=== PATIENT | male | born 1950 | race Caucasian/White ===

== ENCOUNTER 2025-04-15 13:11 | Observation (INO) ==
[2025-04-15] MEDS: ACETAMINOPHEN 1,000 MG/100 ML VIAL IV STA (14:01)
[2025-04-15] MEDS: SODIUM CHLORIDE 0.9% 1,000 ML IV ONE (14:01)
[2025-04-15] MEDS: ONDANSETRON INJ 2 MG/ML 2 ML VIAL IV STA (14:02)
--- NOTE | 2025-04-15 14:16 | Emergency Department Note ---
Impression & Plan Ureterolithiasis, Acute renal failure, Anaplasmosis, Hydronephrosis due to obstruction of ureter, Thrombocytopenia, Lymphopenia ED Provider Note NAME: TANNER ELIZABETH AGE: 74 SEX: M : 1950 ARRIVES VIA: Walk-In INFORMANT: Patient ED PROVIDER(S): Jorge A Tobias MD CHIEF COMPLAINT: Bilateral flank pain, referred PLAN: Disposition: Admit MEDICAL DECISION MAKING: The patient is a pleasant 74-year-old gentleman with a past medical history of nephrolithiasis, hypertension, hyperlipidemia, diabetes who presents to the emergency department referred by his urology office after he had contacted them describing his worsening pain in the setting of being seen at [facility] on Thursday and diagnosed with a 7 mm obstructing right ureteral stone. Patient was in the process of arranging outpatient follow-up however symptoms have worsened. He reports nausea and vomiting. He reports pain that now also includes his left side. He reports feeling feverish earlier in the week. He denies cough, congestion, shortness of breath, chest pain. He denies blood in his urine. On my evaluation the patient is in no acute distress, afebrile with heart in the 110s and vital signs otherwise stable. He appears clinically dry. He exhibits discomfort of bilateral flanks and lower abdomen without discrete tenderness to palpation. There is no guarding or rebound. WBC within normal limits without neutrophilia or left shift. However, lymphopenia is present at 0.32K and thrombocytopenia of 67K without recent values for comparison. Chemistry without metabolic acidosis. Creatinine is 2.49 with BUN of 51 without recent values for comparison though increased from 2022. BUN/creatinine 20.5 suggestive of component of prerenal etiology. Total bili 1.7, nonspecific and LFTs otherwise normal. Lipase is normal. UA demonstrates WBCs and RBCs with 1+ bacteria albeit with epithelial cells present and negative nitrites. CT of the abdomen pelvis was completed and per my preliminary independent interpretation demonstrates moderate right-sided hydroureteronephrosis with a 7 mm stone at the UVJ consistent with patient's recent history. No clear left ureteral stone however fullness of the left renal pelvis. Patient was treated with IV hydration, IV APAP, Zofran and IV morphine. Patient did report some improvement in symptoms though still uncomfortable and agrees with plan for admission for further management. Case was discussed with [facility] hospitalist, who will evaluate the patient for admission. Of note, I was subsequent contacted by laborer cheesemaking regarding intracellular inclusions suspicious for anaplasmosis and so Anaplasma DNA testing was ordered as a reflex. Given thrombocytopenia and microscopy finding treatment initiated with IV doxycycline. Findings were reviewed with the patient and he does not recall any particular tick bite but [place] and are exposed to ticks. Admitting team updated. CT report was subsequently finalized and confirms right sided UVJ stone with moderate hydroureteronephrosis. Additionally described as moderate thickening of the duodenum suggestive of duodenitis or PUD. Further management per admitting team. Triage Nursing notes reviewed and agree them. Prior/external medical records reviewed Vital Signs: reviewed Differential diagnosis: Renal colic, UTI, appendicitis, diverticulitis, mesenteric ischemia, aortic pathology, infections, inflammatory bowel disease, PUD, biliary pathology, as well as other pathologies. ER treatment provided: See below. Diagnostics interpreted by me: Cardiac Monitoring: An order for continuous cardiac monitoring was placed and demonstrated sinus tachycardia, 108 bpm, no ectopy. Laboratory studies: See below Imaging studies: See below Consultation(s): Case was discussed with Dr. Vega, [facility] hospitalist, who will evaluate the patient for admission. HPI: Per MDM. ROS: See above HPI for pertinent positives & negatives. A total of 10 systems reviewed and were otherwise negative. VITALS:See Below PHYSICAL EXAMINATION: GENERAL: Awake, alert, in no distress HENT: Normocephalic, atraumatic. Oropharynx with dry mucous membranes and otherwise unremarkable. EYES: Normal conjunctiva. Sclera non-icteric. NECK: Supple. No nuchal rigidity. FROM. No JVD. RESPIRATORY: Clear to auscultation. CARDIAC: Tachycardic rate, normal rhythm. Extremities warm and well perfused. Pulses equal. ABDOMEN: Soft, non-distended. Discomfort of bilateral flanks and lower abdomen without discrete tenderness to palpation. There is no guarding or rebound. MUSCULOSKELETAL: Chest examination reveals no tenderness. The back is symmetrical on inspection without obvious abnormality. There is no CVA tenderness to palpation. No joint edema. LOWER EXTREMITIES: Calves are equal size bilaterally and non-tender. No edema. No discoloration. NEURO: Normal sensorium. No sensory or motor deficits noted. SKIN: No rash or jaundice noted. Jorge A Tobias MD Past Med/Surg History Problem List (Updated 04/16/25 @ 00:19 by Jorge A Tobias MD) Lymphopenia (Acute) Thrombocytopenia (Acute) Hydronephrosis due to obstruction of ureter (Acute) DM2 (diabetes mellitus, type 2) Anaplasmosis (Acute) Acute renal failure (Acute) Ureterolithiasis (Acute) Erectile dysfunction Prostate cancer Social History Smoking Status: Never smoker Hx Alcohol Use: Yes Alcohol type: beer Hx Substance Use: No Preferred Language: Nicaraguan Communication Ability: Effective Drafter Chief Design Required: No Beliefs That Will Affect Care: None Current Living Situation: Spouse Feels Safe at Home: Yes Assistive Devices: Glasses Allergies Allergies Allergy/AdvReac Type Severity Reaction Status Date / Time propofol AdvReac Verified 04/15/23 13:54 Home Meds Home Medications Medication Instructions Recorded Confirmed aspirin 81 mg capsule 81 mg PO DAILY 04/15/23 04/15/25 dextroamphetamine-amphetamine ER 40 mg PO DAILY 04/15/23 04/15/25 20 mg 24hr capsule,extend release dulaglutide 0.75 mg/0.5 mL 0.75 mg subcut WK 04/15/23 04/15/25 subcutaneous [facility] escitalopram oxalate 20 mg tablet 20 mg PO DAILY 04/15/23 04/15/25 lamotrigine 100 mg tablet 50 mg PO BID 04/15/23 04/15/25 losartan 25 mg tablet 50 mg PO DAILY 04/15/23 04/15/25 metformin 1,000 mg tablet 0 mg PO BID 04/15/23 04/15/25 naltrexone 50 mg tablet 50 mg PO DAILY 04/15/23 04/15/25 rosuvastatin 20 mg tablet 20 mg PO DAILY 04/15/23 04/15/25 tadalafil 20 mg tablet 0 mg PO DAILY PRN Other 04/15/23 04/15/25 ondansetron 4 mg disintegrating 4 mg PO UD PRN n/v 04/15/25 04/15/25 tablet oxycodone 5 mg tablet 5 mg PO UD PRN Pain 04/15/25 04/15/25 tamsulosin 0.4 mg capsule 0.4 mg PO DAILY 04/15/25 04/15/25 Results & Data (ED) Vital Signs Vital Signs - 24 hr 04/15/25 13:34 04/15/25 13:50 04/15/25 13:50 Temperature 37.3 C Temperature Source Oral Pulse Rate 112 H 102 H Pulse Rate [Apical] 105 H Pulse Rhythm [Apical] Regular Pulse Strength [Apical] Normal Respiratory Rate 20 18 Respiratory Effort / Characteristics Non-Labored Spontaneous Respiratory Depth Normal Respiratory Pattern Regular Blood Pressure 122/80 Blood Pressure [Left Arm] 142/92 H Blood Pressure Mean 94 Blood Pressure Mean [Left Arm] 108 Blood Pressure Position [Left Arm] Lying Pulse Oximetry 97 94 96 Oxygen Delivery Method Room Air Room Air Room Air Sepsis Recent Fever Within 48 Hours Yes Sepsis New/Unexplained Change in Mental Status N/A Sepsis Action Taken by Nursing No Action Required 04/15/25 14:02 04/15/25 15:12 Temperature Temperature Source Pulse Rate 108 H Pulse Rate [Apical] 93 H Pulse Rhythm [Apical] Pulse Strength [Apical] Respiratory Rate 16 Respiratory Effort / Characteristics Non-Labored Spontaneous Respiratory Depth Respiratory Pattern Blood Pressure Blood Pressure [Left Arm] 116/75 Blood Pressure Mean Blood Pressure Mean [Left Arm] 88 Blood Pressure Position [Left Arm] Pulse Oximetry 94 Oxygen Delivery Method Room Air Sepsis Recent Fever Within 48 Hours Sepsis New/Unexplained Change in Mental Status Sepsis Action Taken by Nursing Laboratory Data Attestation: I reviewed the patient's lab results. 04/15/25 14:00 04/15/25 14:00 Lab Results 04/15/25 04/15/25 Range/Units 14:00 15:05 WBC 7.07 (4.8-10.8) K/ul RBC 5.38 (4.70-6.10) M/uL Hgb 15.5 (14.0-18.0) g/dl Hct 46.2 (42.0-52.0) % MCV 85.9 (80.0-100.0) fL MCH 28.8 (25.0-34.0) pg MCHC 33.5 (32.0-36.0) g/dL RDW Std Deviation 41.5 (36.4-46.3) fL RDW Coeff of Estelita 13.2 (11.5-14.5) % Plt Count 67 L (130-400) K/uL MPV 9.0 L (9.4-12.4) fL Immature Gran % (Auto) 0.4 % Neut % (Auto) 89.6 % Lymph % (Auto) 4.5 % [place] % (Auto) 5.2 % Eos % (Auto) 0.0 % Baso % (Auto) 0.3 % Neut # (Auto) 6.33 (1.40-6.50) K/uL Lymph # (Auto) 0.32 L (1.20-3.40) K/uL [place] # (Auto) 0.37 (0.11-0.59) K/uL Eos # (Auto) 0.00 (0.00-0.50) K/uL Baso # (Auto) 0.02 (0.00-0.20) K/uL Immature Gran # (Auto) 0.03 (0.01-0.20) K/uL Toxic Granulation 1+ Dohle Bodies 2+ Platelet Estimate Decreased L (Normal) Polychromasia 1+ PT 10.7 (9.0-12.0) Seconds INR 1.0 (0.9-1.1) Sodium 130 L (136-145) mmol/L Potassium 4.9 (3.5-5.1) mmol/L Chloride 96 L (98-107) mmol/L Carbon Dioxide 25 (21-32) mmol/L Anion Gap 9 (3-11) BUN 51 H (6-23) mg/dl Creatinine 2.49 H (0.6-1.4) mg/dl Est Cr Clr Drug Dosing 28.5 ml/min eGFR 26.76 BUN/Creatinine Ratio 20.5 H (10-20) Glucose 153 H (70-99(Fasting)) mg/dl Calcium 9.2 (8.6-10.3) mg/dl Total Bilirubin 1.7 H (0.2-1.0) mg/dl AST 22 (13-39) U/L ALT 23 (7-52) U/L Alkaline Phosphatase 79 (34-104) U/L Total Protein 6.7 (6.0-8.3) gm/dl Albumin 3.7 (3.4-5.0) gm/dl Globulin 3.0 (2.5-4.0) gm/dl Albumin/Globulin Ratio 1.2 (0.9-2) Lipase 13 (11-82) U/L Urine Color Yellow Urine Appearance Cloudy A (Clear) Urine pH 5.5 (4.5-7.5) Ur Specific [place] 1.021 (1.000-1.030) Urine Protein 2+ H (Negative) Urine Glucose (UA) Negative (Negative) Urine Ketones 1+ H (Negative) Urine Blood 3+ H (Negative) Urine Nitrite Negative (Negative) Urine Bilirubin Negative (Negative) Urine Urobilinogen Negative (Negative) Ur Leukocyte Esterase 2+ H (Negative) Urine WBC (Auto) >50 H (0-5) /hpf Urine RBC (Auto) 3-5 H (0-2) /hpf U Hyaline Cast (Auto) 6-10 H (0-2) /lpf U Epithel Cells (Auto) 6-10 H (0-2) /hpf Urine Bacteria (Auto) 1+ H (None Seen) Urine Comment Anaplasma Smear See Comment A Anaplasma Comment Administered Medications Hydromorphone HCl (Hydromorphone Inj 0.5 Mg/0.5 Ml Syr) 0.5 mg IV Q4 PRN PRN Reason: Pain - moderate Stop: 04/29/25 19:01 Last Admin: 04/15/25 19:30 Dose: 0.5 mg Documented By: sierra Lactated Ringer's (Lr) 1,000 mls @ 125 mls/hr IV .Q8H JAN Stop: 04/18/25 19:01 Last Admin: 04/15/25 19:44 Dose: 125 mls/hr Documented By: DENNY Insulin Aspart (Insulin Aspart Per Unit Charge) 0 units SC ACHS [facility] Stop: 05/15/25 20:59 Last Admin: 04/15/25 20:50 Dose: Not Given Documented By: CHRISTIANO Lamotrigine (Lamotrigine 25 Mg Tab) 50 mg PO BID [facility]; Protocol Stop: 05/15/25 20:59 Last Admin: 04/15/25 21:01 Dose: 50 mg Documented By: CHRISTIANO Ondansetron HCl (Ondansetron Inj 2 Mg/Ml 2 Ml Vial) 4 mg IV Q6H PRN PRN Reason: Nausea Stop: 05/15/25 19:01 Last Admin: 04/15/25 19:27 Dose: 4 mg Documented By: sierra Discontinued Medications Sodium Chloride (Nss) 1,000 mls @ 999 mls/hr IV .Q1H1M ONE Stop: 04/15/25 14:40 Last Infusion: 04/15/25 14:57 Dose: Infused Documented By: leon Admin: 04/15/25 14:01 Dose: 999 mls/hr Documented By: leon Acetaminophen (Ofirmev) 1,000 mg in 100 mls @ 400 mls/hr IV NOW STA Stop: 04/15/25 13:54 Last Infusion: 04/15/25 14:25 Dose: Infused Documented By: leon Admin: 04/15/25 14:01 Dose: 400 mls/hr Documented By: leon Doxycycline Hyclate 100 mg/ (Dextrose) 100 mls @ 50 mls/hr IV NOW STA Stop: 04/15/25 18:05 Last Infusion: 04/15/25 19:15 Dose: Infused Documented By: Admin: 04/15/25 16:53 Dose: 50 mls/hr Documented By: ROSS Morphine Sulfate (Morphine Sulfate 10 Mg/Ml Carp/Vial) 6 mg IV NOW STA Stop: 04/15/25 14:16 Last Admin: 04/15/25 14:30 Dose: 6 mg Documented By: leon Ondansetron HCl (Ondansetron Inj 2 Mg/Ml 2 Ml Vial) 4 mg IV NOW STA Stop: 04/15/25 13:41 Last Admin: 04/15/25 14:02 Dose: 4 mg Documented By: leon Imaging Data Radiologist's Impression: Abdomen/Pelvis CT 04/15/25 14:54 EXAM: CT Abdomen and Pelvis Without Intravenous Contrast INDICATION: Bilateral flank pain. History of stents. TECHNIQUE: Axial computed tomography images of the abdomen and pelvis without intravenous contrast. Sagittal and coronal reformatted images were created and reviewed. This CT exam was performed using one or more of the following dose reduction techniques: automated exposure control, adjustment of the mA and/or kV according to patient size, and/or use of iterative reconstruction technique. COMPARISON: No relevant prior studies available. FINDINGS: Limitations: None. Lung bases: No abnormality noted. Pleural space: Trace layering bilateral pleural effusions present right greater than left. Heart: No abnormality noted. Mediastinum: No abnormality noted. ABDOMEN: Liver: Lack of intravenous contrast limits detection of some masses. No abnormality noted. Gallbladder and bile ducts: No calcified stones or surrounding fluid. No ductal dilation. Pancreas: No pancreatic mass, calcification, inflammation or ductal dilation noted. Spleen: No significant abnormality noted. Adrenals: No significant abnormality noted. Kidneys and ureters: There is mild right hydroureteronephrosis to a 7 mm stone just above the right UVJ. There is a punctate nonobstructing stone in the lower left kidney. Stomach and bowel: There is moderate thickening and inflammation of the duodenal C-loop. There is marked colonic diverticulosis. There is stool and fluid in the colon particularly on the right. There is prominent small bowel fluid without obstruction. PELVIS: Appendix: No findings to suggest acute appendicitis. Bladder: Appears normal for the degree of filling. No stones or inflammation. No large mass. Masses may not be detected in the absence of opacification. Reproductive: No abnormalities noted. ABDOMEN and PELVIS: Intraperitoneal space: No free air. No significant fluid collection. Bones/joints: Degenerative changes noted throughout the spine. No acute osseous abnormality seen. Soft tissues: No significant abnormality noted. Vasculature: No abdominal aortic aneurysm. Lymph nodes: No pathologically enlarged lymph nodes. IMPRESSION: 1. Moderate right hydroureteronephrosis to a 7 mm stone just above the right UVJ. 2. There is moderate thickening of the duodenum. Findings most concerning for duodenitis or peptic ulcer disease. No definite evidence of acute pancreatitis but correlate with pancreatic enzymes. 3. Extensive colonic diverticulosis. No diverticulitis. 4. Trace layering pleural effusions. ACT 112: N/A Electronically signed by Swapna Lopez 04-15-2025 4:23 PM Discharge Plan Visit Data Chief Complaint: Kidney Stone Stated Complaint: KIDNEY STONE ED Provider: Jorge A Tobias Discharge Problem: Ureterolithiasis, Acute renal failure, Anaplasmosis, Hydronephrosis due to obstruction of ureter, Thrombocytopenia, Lymphopenia Patient Disposition: Admitted As Inpatient Condition: Fair Discharge Instructions Interventions: ED Discharge Assessment Last Done: 04/15/25 19:03 Discharge Problem: Acute renal failure Qualifiers: Acute renal failure type: unspecified Qualified Code(s): N17.9 - Acute kidney failure, unspecified
[2025-04-15] MEDS: MoRPHine SULFATE 10 MG/ML CARP/VIAL IV STA (14:30)
[2025-04-15 14:32] LABS: Alanine Aminotransferase 23.0 U/L (7-52); Albumin Globulin Ratio 1.2 (0.9-2); Albumin Level 3.7 gm/dl (3.4-5.0); Alkaline Phosphatase 79.0 U/L (34-104); Anion Gap 9.0 (3-11); Bilirubin,Total 1.7 mg/dl (0.2-1.0); Blood Urea Nitrogen 51.0 mg/dl (6-23); Calcium 9.2 mg/dl (8.6-10.3); Carbon Dioxide 25.0 mmol/L (21-32); Chloride 96.0 mmol/L (98-107); Creatinine Clr Calc Pharmacy 28.5 ml/min; Globulin 3.0 gm/dl (2.5-4.0); Glucose 153.0 mg/dl (70-99(Fasting)); Lipase 13.0 U/L (11-82); Potassium 4.9 mmol/L (3.5-5.1); Sodium 130.0 mmol/L (136-145); Total Protein 6.7 gm/dl (6.0-8.3)
[2025-04-15 14:33] LABS: Hematocrit (blood only) 46.2 % (42.0-52.0); Hemoglobin 15.5 g/dl (14.0-18.0); Mean Corpuscular Hemoglobin 28.8 pg (25.0-34.0); Mean Corpuscular Volume 85.9 fL (80.0-100.0); Platelet Count 67 K/uL (130-400); RDW Standard Deviation 41.5 fL (36.4-46.3); Red Blood Count 5.38 M/uL (4.70-6.10); White Blood Count 7.07 K/ul (4.8-10.8)
[2025-04-15 14:45] LABS: INR 1.0 (0.9-1.1); Prothrombin Time 10.7 Seconds (9.0-12.0)
[2025-04-15 15:54] LABS: Appearance Urine Cloudy (Clear); Bacteria Urine Automated 1+ (None Seen); Glucose Urine UA Negative (Negative); WBC Urine Automated >50 /hpf (0-5)
[2025-04-15 15:54] LABS: Dohle Bodies 2+; Immature Granulocytes # (auto) 0.03 K/uL (0.01-0.20); Immature Granulocytes % (auto) 0.4 %; Polychromasia 1+; Toxic Granulation 1+
--- NOTE | 2025-04-15 16:24 | CT Scan Report ---
EXAM: CT Abdomen and Pelvis Without Intravenous Contrast INDICATION: Bilateral flank pain. History of stents. TECHNIQUE: Axial computed tomography images of the abdomen and pelvis without intravenous contrast. Sagittal and coronal reformatted images were created and reviewed. This CT exam was performed using one or more of the following dose reduction techniques: automated exposure control, adjustment of the mA and/or kV according to patient size, and/or use of iterative reconstruction technique. COMPARISON: No relevant prior studies available. FINDINGS: Limitations: None. Lung bases: No abnormality noted. Pleural space: Trace layering bilateral pleural effusions present right greater than left. Heart: No abnormality noted. Mediastinum: No abnormality noted. ABDOMEN: Liver: Lack of intravenous contrast limits detection of some masses. No abnormality noted. Gallbladder and bile ducts: No calcified stones or surrounding fluid. No ductal dilation. Pancreas: No pancreatic mass, calcification, inflammation or ductal dilation noted. Spleen: No significant abnormality noted. Adrenals: No significant abnormality noted. Kidneys and ureters: There is mild right hydroureteronephrosis to a 7 mm stone just above the right UVJ. There is a punctate nonobstructing stone in the lower left kidney. Stomach and bowel: There is moderate thickening and inflammation of the duodenal C-loop. There is marked colonic diverticulosis. There is stool and fluid in the colon particularly on the right. There is prominent small bowel fluid without obstruction. PELVIS: Appendix: No findings to suggest acute appendicitis. Bladder: Appears normal for the degree of filling. No stones or inflammation. No large mass. Masses may not be detected in the absence of opacification. Reproductive: No abnormalities noted. ABDOMEN and PELVIS: Intraperitoneal space: No free air. No significant fluid collection. Bones/joints: Degenerative changes noted throughout the spine. No acute osseous abnormality seen. Soft tissues: No significant abnormality noted. Vasculature: No abdominal aortic aneurysm. Lymph nodes: No pathologically enlarged lymph nodes. IMPRESSION: 1. Moderate right hydroureteronephrosis to a 7 mm stone just above the right UVJ. 2. There is moderate thickening of the duodenum. Findings most concerning for duodenitis or peptic ulcer disease. No definite evidence of acute pancreatitis but correlate with pancreatic enzymes. 3. Extensive colonic diverticulosis. No diverticulitis. 4. Trace layering pleural effusions. ACT 112: N/A Electronically signed by Swapna Lopez 04-15-2025 4:23 PM
[2025-04-15] MEDS: DOXYCYCLINE HYCLATE 100 MG in DEXTROSE 5% MINI-B 100 ML IV STA (16:53)
--- NOTE | 2025-04-15 16:53 | History & Physical Report ---
Date of Service April 15, 2025 Assessment & Plan (1) Ureterolithiasis: (2) Acute renal failure: (3) Anaplasmosis: (4) Prostate cancer: (5) DM2 (diabetes mellitus, type 2): Plan #Symptomatic ureterolithiasis/hydronephrosisdefinitely appears to have a stone on the right, with bilateral symptoms and the acute renal failure, while the radiologist does not comment on it, both the ER physician and myself feel that his left kidney is may be mildly dilated and we see white density in the pelvis near the bladder and both have a suspicion he may have bilateral stones. Regardless, the management will require pain control, IV fluids, and urology consultsand I will defer to urology's expertise and further evaluation regarding stone unilaterally versus bilaterally. Does not appear septic. continue Flomax #Acute renal failureeither from bilateral obstruction, dehydration, or both. IV fluids and follow. hold losartan and metformin #Hyponatremialikely due to poor p.o. intake/volume lossanticipate improvement with rehydration #Anaplasmosistotally incidental findingthe lab called that he appeared to have inclusion bodies consistent with Anaplasma and confirmed with pathology that this was the case. Probably explains his thrombocytopenia, possibly explains his elevated bilirubin (although it is more common to cause transaminitis) and almost certainly explains his rigors the other day. Doxycycline, follow labs. #Diabeteslast A1c that I can see was 5.9, that was 2 years ago but he also notes that he is under good control. Obviously holding his Trulicity and metformin. Fingersticks, supplemental insulin. Recheck A1c. #ADHD and bipolarcontinue his Lexapro and dextroamphetamine as well as I assume is probably why he is on the Lamictal #DVT prophylaxisSCDs for nowboth due to the renal failure and the thrombocytopenia #elevated bilirubinagain, not pathognomonic association with Anaplasma (morbid obesity if there was also hemolysis which does not appear to be going on)treat as above, follow-up CMP in AM. History of Present Illness Chief Complaint: Flank pain, nausea vomiting, chills. Primary Care Provider: Evan Parsons Patient is a very pleasant 74-year-old male who has had about a week of right sided flank pain and progressive nausea and vomiting. He notes that he was seen at his local hospital where they identified a kidney stone and told him they would not really be able to do anything to manage it and directed him to [facility]. it sounds like there they reevaluated him and recommended that he follow-up with his primary urologist, and sent him home. In the interim, he has had worsening pain, now actually bilaterally, and intractable nausea and vomiting at times and very poor p.o. intake. He is feeling worse and worse. Incidentally, a few nights ago he had bout of shaking chills quite consistent with rigors. None since. He came to our ER for further evaluation, and right now after 6 mg of morphine he is feeling a bit more comfortable. His past medical history includes ADHD, bipolar, GERD, osteoarthritis, prior kidney stones, hyperlipidemia, well-controlled diabetes. Medications are as per med rec, sounds to have had fairly severe reaction to propofol, past surgical history includes hernia repairs colonoscopy cystoscopy prostate ablation and prior cystoscopes for ureterolithiasis. Family history includes a brother with type 2 diabetes, parents who had heart disease and diabetes in the mom. No tobacco social alcohol. Allergies Allergy/AdvReac Type Severity Reaction Status Date / Time propofol AdvReac Verified 04/15/23 13:54 Home Medications Medication Instructions Recorded Confirmed Type aspirin 81 mg capsule 81 mg PO DAILY 04/15/23 04/15/25 History dextroamphetamine-amphetamine ER 40 mg PO DAILY 04/15/23 04/15/25 History 20 mg 24hr capsule,extend release dulaglutide 0.75 mg/0.5 mL 0.75 mg subcut WK 04/15/23 04/15/25 History subcutaneous pen injector (Trulicity) escitalopram oxalate 20 mg tablet 20 mg PO DAILY 04/15/23 04/15/25 History lamotrigine 100 mg tablet 50 mg PO BID 04/15/23 04/15/25 History losartan 25 mg tablet 50 mg PO DAILY 04/15/23 04/15/25 History metformin 1,000 mg tablet 0 mg PO BID 04/15/23 04/15/25 History naltrexone 50 mg tablet 50 mg PO DAILY 04/15/23 04/15/25 History rosuvastatin 20 mg tablet 20 mg PO DAILY 04/15/23 04/15/25 History tadalafil 20 mg tablet 0 mg PO DAILY PRN Other 04/15/23 04/15/25 History ondansetron 4 mg disintegrating 4 mg PO UD PRN n/v 04/15/25 04/15/25 History tablet oxycodone 5 mg tablet 5 mg PO UD PRN Pain 04/15/25 04/15/25 History tamsulosin 0.4 mg capsule 0.4 mg PO DAILY 04/15/25 04/15/25 History Past Med/Surg History Problem List (Updated 04/15/25 @ 16:53 by Domingo Vega DO) DM2 (diabetes mellitus, type 2) Anaplasmosis Acute renal failure Ureterolithiasis Erectile dysfunction Prostate cancer Social History Smoking Status: Never smoker Preferred Language: Yemeni Feels Safe at Home: Yes Review of Systems Review of Systems: All systems reviewed & are unremarkable except as noted in HPI & below Physical Exam Physical Exam: In general he is awake and alert pleasant fatigued no distress. HEENT normocephalic atraumatic mucous membranes moist. Cardio is regular without rubs murmurs or gallops. Lungs clear bilaterally no rales rhonchi or wheezes. Abdomen is soft nondistended nontender no masses organomegaly. Extremities without sinus clubbing or edema. Neuro shows cranial nerves II through XII to be grossly intact gross motor and sensory intact. Skin without rashes pallor or icterus. Results & Data Results & Data Vital Signs (Past 12 Hours) Vital Signs Temp Pulse Pulse Resp BP BP Pulse Ox 04/15/25 15:12 93 H 16 116/75 94 04/15/25 14:02 108 H 04/15/25 13:50 102 H 96 04/15/25 13:50 105 H 18 142/92 H 94 04/15/25 13:34 99.1 F 112 H 20 122/80 97 O2 Del Method 04/15/25 15:12 Room Air 04/15/25 14:02 04/15/25 13:50 Room Air 04/15/25 13:50 Room Air 04/15/25 13:34 Room Air Code Status & VTE Plan VTE Prophylaxis Plan VTE Prophylaxis will be ordered: Yes PG Care Time/CCT Total # of Minutes Spent Total Time Spent with Patient: Total time spent is greater than 50% in coordination of care (as documented) at patient's floor/unit and/or counseling patient: Coding Level of Care Code 92284 INT INP/OBS CARE 3/75MIN Diagnoses Ureterolithiasis N20.1 Acute renal failure N17.9 Anaplasmosis A77.49 Prostate cancer C61 DM2 (diabetes mellitus, type 2) E11.9
[2025-04-15] MEDS ORDERED: ALUMINUM/MAGNESIUM SUSP 30 ML UDC PO PRN (19:02)
[2025-04-15] MEDS: ONDANSETRON INJ 2 MG/ML 2 ML VIAL IV PRN (19:27)
[2025-04-15] MEDS: HYDROmorphone INJ 0.5 MG/0.5 ML SYR IV PRN (19:30)
[2025-04-15] MEDS: LACTATED RINGER'S 1,000 ML IV SCH (19:44)
[2025-04-15] MEDS: INSULIN ASPART PER UNIT CHARGE SC SCH (20:50)
[2025-04-15] MEDS: lamoTRIgine 25 MG TAB PO SCH (21:01)
[2025-04-16] MEDS: DOXYCYCLINE HYCLATE 100 MG in DEXTROSE 5% MINI-B 100 ML IV SCH (03:07)
[2025-04-16 07:10] LABS: Hematocrit (blood only) 43.1 % (42.0-52.0); Hemoglobin 14.3 g/dl (14.0-18.0); Immature Granulocytes # (auto) 0.03 K/uL (0.01-0.20); Immature Granulocytes % (auto) 0.4 %; Mean Corpuscular Hemoglobin 28.8 pg (25.0-34.0); Mean Corpuscular Volume 86.7 fL (80.0-100.0); Platelet Count 68 K/uL (130-400); RDW Standard Deviation 42.4 fL (36.4-46.3); Red Blood Count 4.97 M/uL (4.70-6.10); White Blood Count 6.84 K/ul (4.8-10.8)
[2025-04-16 07:30] LABS: Alanine Aminotransferase 17.0 U/L (7-52); Albumin Globulin Ratio 1.0 (0.9-2); Albumin Level 3.0 gm/dl (3.4-5.0); Alkaline Phosphatase 69.0 U/L (34-104); Anion Gap 8.0 (3-11); Bilirubin,Total 1.2 mg/dl (0.2-1.0); Blood Urea Nitrogen 41.0 mg/dl (6-23); Calcium 8.5 mg/dl (8.6-10.3); Carbon Dioxide 27.0 mmol/L (21-32); Chloride 99.0 mmol/L (98-107); Creatinine Clr Calc Pharmacy 40.9 ml/min; Globulin 3.0 gm/dl (2.5-4.0); Glucose 142.0 mg/dl (70-99(Fasting)); Potassium 4.6 mmol/L (3.5-5.1); Sodium 134.0 mmol/L (136-145); Total Protein 6.0 gm/dl (6.0-8.3)
[2025-04-16 07:36] LABS: Hemoglobin A1C 6.3 % (4.5-5.6)
--- NOTE | 2025-04-16 08:26 | Hospitalist Progress Note ---
Date of Service April 16, 2025 Assessment & Plan (1) Ureterolithiasis: (2) Acute renal failure: (3) Anaplasmosis: (4) Prostate cancer: (5) DM2 (diabetes mellitus, type 2): Plan This patient is a 74-year-old male who presented on 04/15 for bilateral flank pain, nausea, and vomiting. #Symptomatic ureterolithiasis | hydronephrosis A/P CT revealed a 7 mm kidney stone Urology consult appreciated Underwent cystoscopy and right ureteral stent insertion with Dr. Manuel on 04/16 Full code diet advance as tolerated Continue Flomax IV antiemetics IV pain control Continue IVF at 80mL/hr # LIZ (improving) Cr 2.49 on arrival (baseline Cr 1.20) Suspect combination of prerenal (dehydration) and postrenal (obstructive stone) IV fluids and follow Hold losartan and metformin #Hyponatremia (improving) Likely due to poor p.o. intake/volume loss Anticipate improvement with continued rehydration #Anaplasmosis | thrombocytopenia Totally incidental finding The lab called - inclusion bodies consistent with Anaplasma and confirmed with pathology that this was the case Probably explains his thrombocytopenia, possibly explains his elevated bilirubin (although it is more common to cause transaminitis) and almost certainly explains his rigors the other day Continue doxycycline 100 mg IV BID Follow daily labs #Diabetes Last A1c 6.3% on 04/16/2025 Notes that he is under good control Hold Trulicity and metformin BSG ACHS #ADHD and bipolar Continue Lexapro and dextroamphetamine Continue Lamictal #Elevated bilirubin Again, not pathognomonic association with Anaplasma (morbid obesity if there was also hemolysis which does not appear to be going on)treat as above, follow-up CMP in AM. #Constipation MiraLAX QAM Disposition: Continued stay on MedSurg VTE PPx: SCDs; defer chemical DVT PPx in setting of LIZ + thrombocytopenia Admission and Anticipated Discharge Date Admission Date: April 15, 2025 Subjective Mr. Lazo is in good spirits following his right ureteral stent placement. He does have a history of prior stents, and is familiar with the process. Following stent placement, he reports his right flank pain is greatly improved. However he is still having 6 out of 10 pain in the left lower back rating around his flank. He is also still having nausea, but denies any vomiting. He is able to keep down water and pills without difficulty, but does not feel hungry at this time. While he denies any burning with ration, he does report difficulty with straining this past week as well as "orange urine". History of prior UTIs. Additionally, he reports a left rash on his calf that resolved this past week, but denies any prior history of tick bites or anaplasmosis. ROS: Patient endorses chills, rash on the left (resolved), left lower back/flank pain, difficulty with urination, nausea, and vomiting (resolved). Patient denies fevers, chest pain, SOB, joint pain, cough, burning with thinners, melena, or blood in the urine or stool. Review of Systems Review of Systems: See HPI above Physical Exam Physical Exam: General: no acute distress; pleasant affect; family at bedside; non-toxic appearing; cooperative; 94% on RA HEENT: normocephalic, atraumatic; PERRLA; vision and hearing intact Neck: supple; trachea midline Skin: warm, dry without signs of tenting; no cyanosis; no rashes, bruising, lesions, or erythema noted CV: chest wall NTP; RRR; S1/S2 normal; no murmurs/rubs/gallops; pulses intact and symmetric at radial, DP, and PT Lungs: no acute respiratory distress; symmetrical chest wall expansion; clear breath sounds across all lung loredo w/o adventitious sounds; no wheezing ABD: Soft, NTP; BS present; no rebound/guarding; no distention; left flank TTP MSK: no tics or fasciculations; no edema noted in the LEs b/l, nonerythematous Back: Mild left-sided CVA tenderness + tenderness to palpation; no rashes or bruises appreciated back or flanks bilateral Neuro: A&Ox3; normal mood and affect; fluent speech; sensation intact and symmetric in the LEs b/l Results & Data Results & Data Vital Signs (Past 12 Hours) Vital Signs Temp Pulse Resp BP Pulse Ox O2 Del Method 04/16/25 07:44 36.7 C 79 16 148/93 H 96 Room Air PG Care Time/CCT Total # of Minutes Spent Total Time Spent with Patient: Total time spent is greater than 50% in coordination of care (as documented) at patient's floor/unit and/or counseling patient: Coding [place] [address] SUB INP/OBS CARE 50MIN Patient Type Established History Comprehensive Exam Comprehensive Medical Decision Making High Complexity Diagnoses Ureterolithiasis N20.1 Acute renal failure N17.9 Acute renal failure type: unspecified Anaplasmosis A77.49 Prostate cancer C61 DM2 (diabetes mellitus, type 2) E11.9 (2) Acute renal failure Acute renal failure type: unspecified Qualified Code(s): N17.9 - Acute kidney failure, unspecified
[2025-04-16] MEDS ORDERED: MIDAZOLAM HCL 1 MG/ML 2ML VIAL ONE (08:58)
[2025-04-16] MEDS ORDERED: ONDANSETRON INJ 2 MG/ML 2 ML VIAL ONE (08:58)
--- NOTE | 2025-04-16 09:03 | Anesthesiology Consultation ---
Date of Service April 16, 2025 Assessment & Plan (1) Encounter for pre-operative examination: Chart Review Chart Review: Acceptable Risk for Surgery History Surgery Operation Date: 04/16/25 09:30 Proposed Procedures p Cystoscopy Retrograde, Right Stent Insertion - Morgan Manuel MD Height/Weight Height: 6 ft Weight: 87.22 kg Allergies Allergy/AdvReac Type Severity Reaction Status Date / Time propofol AdvReac Verified 04/15/23 13:54 Medications Home Medications Medication Instructions Recorded Confirmed Last Taken aspirin 81 mg capsule 81 mg PO DAILY 04/15/23 04/15/25 Unknown dextroamphetamine-amphetamine ER 40 mg PO DAILY 04/15/23 04/15/25 Unknown 20 mg 24hr capsule,extend release dulaglutide 0.75 mg/0.5 mL 0.75 mg subcut WK 04/15/23 04/15/25 Unknown subcutaneous pen injector (Trulicity) escitalopram oxalate 20 mg tablet 20 mg PO DAILY 04/15/23 04/15/25 Unknown lamotrigine 100 mg tablet 50 mg PO BID 04/15/23 04/15/25 Unknown losartan 25 mg tablet 50 mg PO DAILY 04/15/23 04/15/25 Unknown metformin 1,000 mg tablet 0 mg PO BID 04/15/23 04/15/25 Unknown naltrexone 50 mg tablet 50 mg PO DAILY 04/15/23 04/15/25 Unknown rosuvastatin 20 mg tablet 20 mg PO DAILY 04/15/23 04/15/25 Unknown tadalafil 20 mg tablet 0 mg PO DAILY PRN Other 04/15/23 04/15/25 Unknown ondansetron 4 mg disintegrating 4 mg PO UD PRN n/v 04/15/25 04/15/25 Unknown tablet oxycodone 5 mg tablet 5 mg PO UD PRN Pain 04/15/25 04/15/25 Unknown tamsulosin 0.4 mg capsule 0.4 mg PO DAILY 04/15/25 04/15/25 Unknown Active Medications Generic Name Dose Route Start Last Admin Trade Name Freq PRN Reason Stop Dose Admin Hydromorphone HCl 0.5 mg 04/15/25 19:02 04/15/25 19:30 Hydromorphone Inj 0.5 Mg/0.5 Ml Syr IV 04/29/25 19:01 0.5 mg Q4 PRN Administration Pain - moderate Doxycycline Hyclate 100 mg/ 100 mls @ 50 mls/hr 04/16/25 04:00 04/16/25 05:12 Dextrose IV 04/30/25 03:59 Infused Q12H JAN Infusion Lactated Ringer's 1,000 mls @ 125 mls/hr 04/15/25 19:02 04/16/25 03:08 Lr IV 04/18/25 19:01 125 mls/hr .Q8H JAN Administration Insulin Aspart 0 units 04/15/25 21:00 04/15/25 20:50 Insulin Aspart Per Unit Charge SC 05/15/25 20:59 Not Given ACHS JAN Lamotrigine 50 mg 04/15/25 21:00 04/15/25 21:01 Lamotrigine 25 Mg Tab PO 05/15/25 20:59 50 mg BID JAN Administration Protocol Ondansetron HCl 4 mg 04/15/25 19:02 04/15/25 19:27 Ondansetron Inj 2 Mg/Ml 2 Ml Vial IV 05/15/25 19:01 4 mg Q6H PRN Administration Nausea Past Medical History Medical History (Updated 04/16/25 @ 09:12 by Alfonso Torre MD) Anaplasmosis Ureterolithiasis Prostate cancer Acute renal failure DM2 (diabetes mellitus, type 2) Thrombocytopenia Past Surgical History Surgical History (Updated 04/16/25 @ 09:11 by Alfonso Torre MD) Hx of colonoscopy History of prostate surgery Hx of hernia repair Hx of cystoscopy Social History Smoking Status: Never smoker Hx Alcohol Use: Yes Alcohol type: beer alcohol intake frequency: holidays/special occasions only Hx Substance Use: No Physical Exam Vital Signs Last Vital Signs Temp 36.7 C 04/16/25 07:44 Pulse 79 04/16/25 07:44 Resp 16 04/16/25 07:44 BP 148/93 H 04/16/25 07:44 Pulse Ox 96 04/16/25 07:44 O2 Del Method Room Air 04/16/25 07:44 Testing Laboratory Results 04/16/25 06:09 04/16/25 06:09 PT 10.7 Seconds (9.0-12.0) 04/15/25 14:00 INR 1.0 (0.9-1.1) 04/15/25 14:00 Hemoglobin A1c 6.3 % (4.5-5.6) H 04/16/25 06:09 Urine Color Yellow 04/15/25 15:05 Urine Appearance Cloudy (Clear) A 04/15/25 15:05 Urine pH 5.5 (4.5-7.5) 04/15/25 15:05 Ur Specific [place] 1.021 (1.000-1.030) 04/15/25 15:05 Urine Protein 2+ (Negative) H 04/15/25 15:05 Urine Glucose (UA) Negative (Negative) 04/15/25 15:05 Urine Ketones 1+ (Negative) H 04/15/25 15:05 Urine Nitrite Negative (Negative) 04/15/25 15:05 Ur Leukocyte Esterase 2+ (Negative) H 04/15/25 15:05 Urine WBC (Auto) >50 /hpf (0-5) H 04/15/25 15:05 Urine RBC (Auto) 3-5 /hpf (0-2) H 04/15/25 15:05 U Hyaline Cast (Auto) 6-10 /lpf (0-2) H 04/15/25 15:05 U Epithel Cells (Auto) 6-10 /hpf (0-2) H 04/15/25 15:05 Urine Bacteria (Auto) 1+ (None Seen) H 04/15/25 15:05 04/16/25 07:55 POC Glucose 124 H
--- NOTE | 2025-04-16 09:09 | Urology Consultation ---
Date of Consultation April 16, 2025 Assessment & Plan (1) Right ureteral stone: We reviewed the stone in his right ureter. It is large enough that it would be challenging to pass spontaneously. In the setting of LIZ and possible infection, I would recommend that we proceed to the OR for cystoscopy, right retrograde pyelogram and right ureteral stent placement. We discussed risks of bleeding, infection, inability to place stent, injury to urinary tract, need for additional procedures. He expressed understanding and would like to proceed with cystoscopy, right retrograde pyelogram and right ureteral stent placement. (2) Hydronephrosis due to obstruction of ureter: History of Present Illness Reason for Consultation: Right ureteral stone Attending Physician: Akhil Ford MD History of Present Illness This is a 74-year-old male with history of nephrolithiasis. He presented to the emergency department on 04/15/2025 with right-sided flank pain. Workup identified a ureteral stone as well as concern for anaplasmosis. In the emergency department, he had normal WBC (7.07). Creatinine was elevated at 2.49, although has improved with supportive measures to 1.79. Urinalysis from 04/15/2025 demonstrated 3+ blood, 2+ leukocyte esterase, 1+ bacteria as well as some epithelial cells. I independently reviewed his CT scan images from 04/15/2025. Both kidneys are in normal position. There is hydronephrosis of the right extending down the ureter to a obstructing stone in the distal ureter. This is approximately 8 mm in diameter. I do not appreciate any cysts stones of the left kidney or hydronephrosis on the left side. Bladder and prostate are grossly normal. Urology was consulted regarding the right ureteral stone and LIZ. At the bedside, he is still having right-sided abdominal/flank pain. He reports a history of stones requiring surgical intervention he also reports having some fevers over the last couple days. Allergies Allergy/AdvReac Type Severity Reaction Status Date / Time propofol AdvReac Verified 04/15/23 13:54 Home Medications Medication Instructions Recorded Confirmed Type aspirin 81 mg capsule 81 mg PO DAILY 04/15/23 04/15/25 History dextroamphetamine-amphetamine ER 40 mg PO DAILY 04/15/23 04/15/25 History 20 mg 24hr capsule,extend release dulaglutide 0.75 mg/0.5 mL 0.75 mg subcut WK 04/15/23 04/15/25 History subcutaneous pen injector (Trulicity) escitalopram oxalate 20 mg tablet 20 mg PO DAILY 04/15/23 04/15/25 History lamotrigine 100 mg tablet 50 mg PO BID 04/15/23 04/15/25 History losartan 25 mg tablet 50 mg PO DAILY 04/15/23 04/15/25 History metformin 1,000 mg tablet 0 mg PO BID 04/15/23 04/15/25 History naltrexone 50 mg tablet 50 mg PO DAILY 04/15/23 04/15/25 History rosuvastatin 20 mg tablet 20 mg PO DAILY 04/15/23 04/15/25 History tadalafil 20 mg tablet 0 mg PO DAILY PRN Other 04/15/23 04/15/25 History ondansetron 4 mg disintegrating 4 mg PO UD PRN n/v 04/15/25 04/15/25 History tablet oxycodone 5 mg tablet 5 mg PO UD PRN Pain 04/15/25 04/15/25 History tamsulosin 0.4 mg capsule 0.4 mg PO DAILY 04/15/25 04/15/25 History Patient History Medical History (Updated 04/16/25 @ 09:07 by Morgan Manuel MD) Anaplasmosis Ureterolithiasis Prostate cancer Acute renal failure DM2 (diabetes mellitus, type 2) Thrombocytopenia Social History Smoking Status: Never smoker Hx Alcohol Use: Yes Alcohol type: beer Hx Substance Use: No Preferred Language: Portuguese Communication Ability: Effective Speech Pathologist Required: No Beliefs That Will Affect Care: None Current Living Situation: Spouse Feels Safe at Home: Yes Assistive Devices: Glasses Review of Systems Review of Systems: 10 point review of systems negative exce pt for otherwise indicated. Physical Exam Constitutional: well developed and well nourished; no acute distress Eyes: + anicteric sclerae; pupils not irregula r Respiratory: normal respiratory effort; no respiratory distress, does not use accessory muscles and no cough Cardiovascular: well perfused Gastrointestinal (Abdomen): Inspection/Auscultation: abdomen normal to inspection; abdomen not distended Musculoskeletal: Extremities: extremities normal to inspection Skin: normal turgor; no rashes and no lesions Neurologic: moves all extremities and awake Psychiatric: Orientation: alert and oriented x 3 Results & Data Vital Signs (Past 12 Hours) Vital Signs Temp Pulse Resp BP Pulse Ox O2 Del Method 04/16/25 07:44 36.7 C 79 16 148/93 H 96 Room Air PG Care Time/CCT Total # of Minutes Spent Total Time Spent with Patient: Total time spent is greater than 50% in coordination of care (as documented) at patient's floor/unit and/or counseling patient: Coding Level of Care Code 44032 OP VST NEW MOD 45 MIN Diagnoses Right ureteral stone N20.1 Hydronephrosis due to obstruction of ureter N13.1
[2025-04-16] MEDS ORDERED: DexMEDEtomidine HCL IV 100 MCG/ML VIAL IV ONE (09:35)
[2025-04-16] MEDS ORDERED: ONDANSETRON INJ 2 MG/ML 2 ML VIAL IV PRN (09:40)
[2025-04-16] MEDS ORDERED: LABETALOL HCL IV 5 MG/ML 20ML IV PRN (09:40)
[2025-04-16] MEDS ORDERED: ATROPINE SULFATE 0.1 MG/ML 10ML SYR IV PRN (09:40)
[2025-04-16] MEDS ORDERED: KETAMINE HCL 10MG/ML SYR ONE (09:50)
[2025-04-16] MEDS: DIATRIZOATE MEGLUMINE 30% 100ML VIAL INSTIL ONE (10:00)
--- NOTE | 2025-04-16 10:07 | Operative Report ---
PG Post Operative Report Pre & Post Diagnosis Operation Date: 04/16/25 09:30 Pre-Op Diagnosis: Right ureteral stone Post-Op Diagnosis: Right ureteral stone I identified the patient and participated in the time-out.: Yes Procedure Operation Date: 04/16/25 09:30 Actual Procedures p Cystoscopy Right Retrograde pyelogram, Right Ureteral Stent Insertion(Right) - Morgan Manuel MD Surgeon Morgan Manuel MD Rack Cleaner none Estimated Blood Loss 0 Findings Consistent with Post-Op Diagnosis Specimens none Drains 6 Fr x 26 cm double-J ureteral stent in right ureter. Anesthesia Type MAC Complications none Disposition Accompanied Patient To Recovery: Yes Disposition: Recovery Room Indications This is a 74-year-old male who presented to the emergency department with right- sided flank pain and was found to have a right ureteral stone. He is brought to the OR for right ureteral stent placement. Description of Procedure The patient was identified in the holding area and informed consent was confirmed. He was marked on the right side, then was taken to the operating room where anesthesia was initiated. He was placed in the dorsal lithotomy position with all pressure points appropriately padded. He was prepped and draped in the usual sterile fashion and a preoperative timeout was performed. A well-lubricated cystoscope was inserted per urethra and panendoscopy was performed. The pendulous urethra was normal with no strictures or mucosal abnormalities. The prostate was of normal size. His bladder appeared grossly normal with no tumors or stones appreciated. Ureteral orifices were in orthotopic position bilaterally. A 5 Burkinan open-ended catheter was inserted and used to intubate the right uret eral orifice. A retrograde pyelogram was performed using Cystografin. The distal ureter was decompressed although there was an abrupt transition point, likely the location of the stone. There was hydroureter above this. A 0.038 inch zip wire was advanced up to the kidney under fluoroscopic guidance. Over the wire, a 6 Burkinan x 26 cm double-J ureteral stent was advanced. When the wire was removed, there was a good curl in the kidney under fluoroscopic guidance. A curl was visualized in the bladder with the cystoscope. There was drainage of slightly cloudy urine through the stent. At this point the bladder was drained and all instrumentation was removed. The patient was then awakened from anesthesia and was brought to the PACU in stable condition. I attest to the content of the Intraoperative Record and any orders documented therein. Any exceptions are noted below.
[2025-04-16] MEDS: ROSUVASTATIN CALCIUM 20 MG TAB PO SCH (11:13)
[2025-04-16] MEDS: ASPIRIN 81 MG ECTAB PO SCH (11:13)
[2025-04-16] MEDS: ESCITALOPRAM OXALATE 20 MG TAB PO SCH (11:13)
[2025-04-16] MEDS: DEXTROAMPHETAMINE/AMPHETAMINE ER 10 MG CAP PO SCH (11:14)
[2025-04-16] MEDS: TAMSULOSIN HCL 0.4 MG CAP PO SCH (11:14)
--- NOTE | 2025-04-16 11:25 | Anesthesiology Progress Note ---
Date of Service April 16, 2025 Anesthesia Post Procedure Vital Signs Vital Signs: Temp Pulse Pulse Pulse Resp BP BP 04/16/25 11:21 36.6 C 74 16 116/77 04/16/25 10:54 36.8 C 64 16 112/77 04/16/25 10:30 37 C 81 20 111/67 04/16/25 10:15 82 21 122/75 04/16/25 10:07 36.6 C 87 19 112/77 04/16/25 07:44 36.7 C 79 16 148/93 H 04/15/25 20:00 36.7 C 85 18 152/91 H 04/15/25 19:00 82 20 138/89 04/15/25 18:00 88 14 113/72 04/15/25 17:32 89 23 139/87 04/15/25 15:12 93 H 16 116/75 04/15/25 14:02 108 H 04/15/25 13:50 102 H 04/15/25 13:50 105 H 18 142/92 H 04/15/25 13:34 37.3 C 112 H 20 122/80 Pulse Ox O2 Del Method 04/16/25 11:21 97 Room Air 04/16/25 10:54 94 Room Air 04/16/25 10:30 96 Room Air 04/16/25 10:15 92 Room Air 04/16/25 10:07 95 Room Air 04/16/25 07:44 96 Room Air 04/15/25 20:00 98 Room Air 04/15/25 19:00 96 Room Air 04/15/25 18:00 95 Room Air 04/15/25 17:32 97 Room Air 04/15/25 15:12 94 Room Air 04/15/25 14:02 04/15/25 13:50 96 Room Air 04/15/25 13:50 94 Room Air 04/15/25 13:34 97 Room Air Pain Intensity Bilateral Back: Pain Intensity: 8 Transfer of Care Handoff Completed per policy Notes Mental Status: alert / awake / arousable Patient Amnestic to Procedure: Yes Nausea / Vomiting: adequately controlled Pain: adequately controlled Airway Patency, RR, SpO2: stable & adequate BP & HR: stable & adequate Hydration State: stable & adequate Anesthetic Complications: no major complications apparent
[2025-04-16] MEDS: POLYETHYLENE (MIRALAX) 17 GM PACK PO STA (15:24)
[2025-04-16] MEDS: ACETAMINOPHEN 325 MG TAB PO PRN (16:17)
[2025-04-16] MEDS: INFLUENZA VACC TS2025-26(65y+)/PF (IIV3) 0.5mL Syr IM ONE (17:39)
[2025-04-16] MEDS: HYDROmorphone INJ 1 MG/ML SYRINGE IV PRN (22:15)
[2025-04-17 07:22] LABS: Hematocrit (blood only) 42.6 % (42.0-52.0); Hemoglobin 14.2 g/dl (14.0-18.0); Immature Granulocytes # (auto) 0.09 K/uL (0.01-0.20); Immature Granulocytes % (auto) 1.2 %; Mean Corpuscular Hemoglobin 28.7 pg (25.0-34.0); Mean Corpuscular Volume 86.2 fL (80.0-100.0); Platelet Count 79 K/uL (130-400); RDW Standard Deviation 41.3 fL (36.4-46.3); Red Blood Count 4.94 M/uL (4.70-6.10); White Blood Count 7.48 K/ul (4.8-10.8)
[2025-04-17 07:39] LABS: Anion Gap 6.0 (3-11); Blood Urea Nitrogen 28.0 mg/dl (6-23); Calcium 8.9 mg/dl (8.6-10.3); Carbon Dioxide 29.0 mmol/L (21-32); Chloride 100.0 mmol/L (98-107); Creatinine Clr Calc Pharmacy 57.7 ml/min; Glucose 158.0 mg/dl (70-99(Fasting)); Potassium 4.5 mmol/L (3.5-5.1); Sodium 135.0 mmol/L (136-145)
[2025-04-17] MEDS: POLYETHYLENE (MIRALAX) 17 GM PACK PO SCH (10:06)
--- NOTE | 2025-04-17 11:51 | Fluoroscopy Report ---
FL retrograde includes kub CLINICAL HISTORY: CYSTO/STENT COMPARISON STUDY: None FLUOROSCOPY TIME: 8 seconds FLUOROSCOPY IMAGES: 2 EXPOSURE DOSE: 3 mGy FINDINGS: Fluoroscopy was provided for urologic procedure. IMPRESSION: Intraoperative fluoroscopy. ACT 112: Negative or not required by law. Electronically signed by: Paul Barry M.D. 04/17/2025 11:49 AM
--- NOTE | 2025-04-17 15:17 | Urology Progress Note ---
Date of Service April 17, 2025 Assessment & Plan (1) Right ureteral stone: (2) Hydronephrosis due to obstruction of ureter: Plan Postop day #1 status post cystoscopy and right ureteral stent placement Patient is afebrile and hemodynamically stable Labs today show no leukocytosis and normal renal function Urine culture preliminary Staphylococcus epidermidis Patient is on doxycycline Will arrange outpatient follow-up with our service to discuss definitive stone treatment Continue antibiotics and tailor per culture sensitivities Continue tamsulosin and pain management as needed Urology will sign off, please recall as needed Admission and Anticipated Discharge Date Admission Date: April 15, 2025 Subjective Patient seen at bedside this morning. Awake and resting in bed on arrival. No acute distress. Tolerating the ureteral stent with minimal bother. Denies fevers or chills. Voiding without issue. Reports muscle spasm in left lower back. Review of Systems Constitutional: as per Subjective / HPI Genitourinary: + as per Subjective / HPI Physical Exam Constitutional: no acute distress Respiratory: no respiratory distress and no labored breathing Neurologic: awake Psychiatric: A+Ox3, euthymic affect Results & Data Vital Signs (Past 12 Hours) Vital Signs Temp Pulse Resp BP Pulse Ox O2 Del Method 04/17/25 07:31 36.7 C 76 20 156/78 H 98 Room Air PG Care Time/CCT Total # of Minutes Spent Total Time Spent with Patient: Total time spent is greater than 50% in coordination of care (as documented) at patient's floor/unit and/or counseling patient: Coding Level of Care Code 39935 SUB INP/OBS CARE 07/16MIN Diagnoses Right ureteral stone N20.1 Hydronephrosis due to obstruction of ureter N13.1
--- NOTE | 2025-04-17 17:51 | Hospitalist Progress Note ---
"Date of Service April 17, 2025 Assessment & Plan (1) Ureterolithiasis: (2) Acute renal failure: (3) Anaplasmosis: (4) Prostate cancer: (5) DM2 (diabetes mellitus, type 2): Plan This patient is a 74-year-old male who presented on 04/15 for bilateral flank pain, nausea, and vomiting. #Symptomatic ureterolithiasis | hydronephrosis | Urinary tract infection -A/P CT revealed a 7 mm kidney stone -Underwent cystoscopy and right ureteral stent insertion with Dr. Manuel on 04/16 -UC with prelim staph epidermis, in setting of ureterolithiasis will treat with Bactrim pending final UC sensitivity -Carb consistent diet -Continue Flomax -IV pain control, IV antiemetics -add Flexeril prn for muscle spams vs still persistent renal colic discomfort from stent placement ##LIZ (improving) -Cr 2.49 on arrival (baseline Cr 1.20) -Suspect combination of prerenal (dehydration) and postrenal (obstructive stone) -Cr downtrended to normal post stent placement -Hold losartan and metformin #Hyponatremia -Na 135 (improving with oral hydration) -Likely due to poor p.o. intake/volume loss #Anaplasmosis | thrombocytopenia -incidental finding -The lab called - inclusion bodies consistent with Anaplasma and confirmed with pathology that this was the case -Probably explains his thrombocytopenia, possibly explains his elevated bilirubin (although it is more common to cause transaminitis) and almost certainly explains his rigors the other day -Continue doxycycline 100 mg IV BID -platelets improving at 79 #Diabetes -Last A1c 6.3% on 04/16/2025 -Hold Trulicity and metformin -BSG ACHS #ADHD and bipolar -Continue Lexapro and dextroamphetamine -Continue Lamictal #Elevated bilirubin -Tbili normalized #Constipation -MiraLAX QAM Disposition: Continued stay on MedSurg, possible d/c tomorrow VTE PPx: SCDs; defer chemical DVT PPx in setting of LIZ + thrombocytopenia Admission and Anticipated Discharge Date Admission Date: April 15, 2025 Supervising Physician Co-Signing Physician Notes Attending Attestation - Chart reviewed, care plan d/w [employer] MECHANICKAL Mike. I agree w/ the carrasco components of her documentation. Markell Choi MD Subjective Lying in bed this am. Still with colicky type pain now in left flank area. Still taking pain medication per request. Tolerating oral fluids without nausea- appetite not great. Reports he feels like he is having muscle spasms in the left lower back area. Review of Systems Review of Systems: All systems reviewed & are unremarkable except as noted in Subjective Physical Exam Physical Exam: GENERAL APPEARANCE: A&O. Lying in bed. NAD. SKIN: Normal color without rashes or lesions. Normal turgor. HEENT: Head AT/NC. Buccal mucosa is moist and pink. NECK: No jugular venous distention. No thyroid enlargement. There is no lymphadenopathy. HEART: RRR without m/g/r LUNGS: Normal inspiratory effort. CTA without w/r/r ABDOMEN: No guarding or rigidity. Normoactive BS in all four quadrants. Abdomen soft and NT. MSK: No bony gross/deformities throughout. ROM intact. EXTREMITIES: No edema, No peripheral cyanosis. Neuro: CN 2-12 grossly intact. No focal neuro deficits PSYCHIATRIC: Normal affect. Eye contact is good. Speech is normal rate and content. Responses are appropriate. Results & Data Results & Data Vital Signs (Past 12 Hours) Vital Signs Temp Pulse Resp BP Pulse Ox O2 Del Method 04/17/25 15:21 36.7 C 88 18 103/68 98 Room Air 04/17/25 07:31 36.7 C 76 20 156/78 H 98 Room Air Laboratory Results Labs reviewed: CBC, BMP PG Care Time/CCT Total # of Minutes Spent Total Time Spent with Patient: Total time spent is greater than 50% in coordination of care (as documented) at patient's floor/unit and/or counseling patient: I spent a total of 40 minutes on the date of service in review of patient's record, and previously obtained information in person and appropriate medical visit, discussion and education of plan, with patient and/or caregiver, placing orders for tests/referral/procedures as medically necessary and documentation of pertinent clinical information in patient's medical records for their visit today. Coding Level of Care Code 20371 SUB INP/OBS CARE 3/50MIN Diagnoses Ureterolithiasis N20.1 Acute renal failure N17.9 Acute renal failure type: unspecified Anaplasmosis A77.49 Prostate cancer C61 DM2 (diabetes mellitus, type 2) E11.9 (2) Acute renal failure Acute renal failure type: unspecified Qualified Code(s): N17.9 - Acute kidney failure, unspecified"
[2025-04-17] MEDS ORDERED: SULFAMETHOXAZOLE/TRIMETHOPRIM DS 800/160MG TAB PO SCH (21:00)
[2025-04-17] MEDS: CYCLOBENZAPRINE HCL 5 MG TAB PO PRN (21:06)
[2025-04-18] MEDS: FAMOTIDINE 40 MG TABLET PO ONE (10:07)
[2025-04-18 13:06] LABS: Hematocrit (blood only) 43.1 % (42.0-52.0); Hemoglobin 14.8 g/dl (14.0-18.0); Immature Granulocytes # (auto) 0.34 K/uL (0.01-0.20); Immature Granulocytes % (auto) 4.5 %; Mean Corpuscular Hemoglobin 29.1 pg (25.0-34.0); Mean Corpuscular Volume 84.7 fL (80.0-100.0); Platelet Count 131 K/uL (130-400); RDW Standard Deviation 41.1 fL (36.4-46.3); Red Blood Count 5.09 M/uL (4.70-6.10); White Blood Count 7.58 K/ul (4.8-10.8)
[2025-04-18] MEDS: MAGNESIUM HYDROXIDE SUSP 30 ML UDC PO PRN (13:17)
--- NOTE | 2025-04-18 16:34 | Urology Progress Note ---
<Statement entered by Morgan Manuel MD - 04/18/25 17:10> 74-year-old male s/p right ureteral stent placement. I suspect the left-sided pain is more musculoskeletal in nature, although there was a punctate stone seen on his prior CT scan. Would recommend checking renal ultrasound to evaluate for any left-sided hydronephrosis. Urology will follow along. Date of Service April 18, 2025 Assessment & Plan (1) Right ureteral stone: (2) Hydronephrosis due to obstruction of ureter: Plan Postop day #2 status post cystoscopy and right ureteral stent placement Tolerating the stent with minimal bother Having left sided flank/back pain Patient is afebrile and hemodynamically stable Labs today show no leukocytosis Urine culture grew Staphylococcus epidermidis Patient continues on doxycycline Continue antibiotic therapy for treatment of infection Continue tamsulosin and pain medication as needed Can consider Pyridium and oxybutynin as needed for stent management Will check a renal ultrasound to evaluate his left-sided pain and assess for any hydronephrosis/obstruction Recommend bowel regimen Monitor ability to void, bladder scan as needed Urology will follow along Admission and Anticipated Discharge Date Admission Date: April 15, 2025 Subjective Pt seen at bedside today. Sitting in bedside chair. NAD. Reports left lower back pain. Denies significant right sided pain. Tolerating the stent with minimal bother. Has some hematuria. No dysuria. No fevers. Review of Systems Constitutional: as per Subjective / HPI Genitourinary: + as per Subjective / HPI Physical Exam Constitutional: no acute distress Respiratory: no respiratory distress and no labored breathing Neurologic: awake Psychiatric: A+Ox3, euthymic affect Results & Data Vital Signs (Past 12 Hours) Vital Signs Temp Pulse Resp BP Pulse Ox O2 Del Method 04/18/25 15:25 36.6 C 88 18 113/72 95 Room Air 04/18/25 11:04 36.7 C 91 H 18 103/69 98 Room Air 04/18/25 07:33 36.7 C 92 H 18 117/77 99 Room Air PG Care Time/CCT Total # of Minutes Spent Total Time Spent with Patient: Total time spent is greater than 50% in coordination of care (as documented) at patient's floor/unit and/or counseling patient: Coding Level of Care Code 91912 SUB INP/OBS CARE 2/35MIN Diagnoses Right ureteral stone N20.1 Hydronephrosis due to obstruction of ureter N13.1
--- NOTE | 2025-04-18 17:24 | Hospitalist Progress Note ---
"Date of Service April 18, 2025 Assessment & Plan (1) Ureterolithiasis: (2) Acute renal failure: (3) Anaplasmosis: (4) Prostate cancer: (5) DM2 (diabetes mellitus, type 2): Plan This patient is a 74-year-old male who presented on 04/15 for bilateral flank pain, nausea, and vomiting. #Symptomatic ureterolithiasis | hydronephrosis | Urinary tract infection -A/P CT revealed a 7 mm kidney stone -Underwent cystoscopy and right ureteral stent insertion with Dr. Manuel on 04/16 -UC with anastasiya rizo, in setting of ureterolithiasis treating with Doxy as he is already on IV for Anaplasma, called micro to determine if they can add on sensitivity for Doxy and will check in am, will add Cephalexin if needed -Carb consistent diet -Continue Flomax, add Oxybutynin -d/c IV Dilaudid, IV antiemetics, Tramadol PO PRN for pain -added Flexeril prn for muscle spams vs still persistent renal colic discomfort from stent placement -KUB -recall with urology, renal US for left flank pain ##Mid-abdominal pain|LUQ abdominal pain -CTAP on admission with findings concerning for duodenitis/PUD -lipase WNL -Protonix 40mg po, Pepcid 40mg po -GI consult ##LIZ (resolved) -Cr 2.49 on arrival (baseline Cr 1.20) -Suspect combination of prerenal (dehydration) and postrenal (obstructive stone) -Cr downtrended to normal post stent placement -Hold losartan and metformin #Hyponatremia -Na 135 (improving with oral hydration) -Likely due to poor p.o. intake/volume loss #Anaplasmosis | thrombocytopenia -incidental finding -The lab called - inclusion bodies consistent with Anaplasma and confirmed with pathology that this was the case -Probably explains his thrombocytopenia, possibly explains his elevated bilirubin (although it is more common to cause transaminitis) and almost certainly explains his rigors the other day -Continue doxycycline 100 mg IV BID -platelets improving at 131 #Diabetes -Last A1c 6.3% on 04/16/2025 -Hold Trulicity and metformin -BSG ACHS #ADHD and bipolar -Continue Lexapro and dextroamphetamine -Continue Lamictal #Constipation -MiraLAX QAM -dosed with MOM X 1 Disposition: Continued stay on MedSurg, possible d/c tomorrow VTE PPx: SCDs; defer chemical DVT PPx in setting of LIZ + thrombocytopenia Admission and Anticipated Discharge Date Admission Date: April 15, 2025 Supervising Physician Co-Signing Physician Notes Attending Attestation - Chart reviewed, care plan d/w GRISEL Mike. I agree w/ the carrasco components of her documentation. Markell Choi MD Subjective Patient with c/o left sided flank pain and mid-abdominal/left upper quadrant pain. Added Flexeril as patient thought he was having back spasms to the left which has not helped. Still taking Dilaudid IV for left lower back/left flank pain. Reports some relief after Dilaudid dosing. Intermittent nausea with no emesis. Accepting oral hydration favorably but does not have much of an appetite. States he hasn't moved bowels in approximately one week. Voiding with some noted pink-tinged urine. Review of Systems Review of Systems: All systems reviewed & are unremarkable except as noted in Subjective Physical Exam Physical Exam: GENERAL APPEARANCE: A&O. Sitting in chair. NAD. SKIN: Normal color without rashes or lesions. Normal turgor. HEENT: Head AT/NC. Buccal mucosa is moist and pink. NECK: No jugular venous distention. No thyroid enlargement. There is no lymphadenopathy. HEART: RRR without m/g/r LUNGS: Normal inspiratory effort. CTA without w/r/r ABDOMEN: No guarding or rigidity. Normoactive BS in all four quadrants. Abdomen distended and soft. TTP to LUQ. MSK: No bony gross/deformities throughout. ROM intact. EXTREMITIES: No edema, No peripheral cyanosis. Neuro: CN 2-12 grossly intact. No focal neuro deficits PSYCHIATRIC: Normal affect. Eye contact is good. Speech is normal rate and content. Responses are appropriate. Results & Data Results & Data Vital Signs (Past 12 Hours) Vital Signs Temp Pulse Resp BP Pulse Ox O2 Del Method 04/18/25 15:25 36.6 C 88 18 113/72 95 Room Air 04/18/25 11:04 36.7 C 91 H 18 103/69 98 Room Air 04/18/25 07:33 36.7 C 92 H 18 117/77 99 Room Air Laboratory Results Labs reviewed: CBC, lipase PG Care Time/CCT Total # of Minutes Spent Total Time Spent with Patient: Total time spent is greater than 50% in coordination of care (as documented) at patient's floor/unit and/or counseling patient: Coding Level of Care Code 92394 SUB INP/OBS CARE 50MIN Diagnoses Ureterolithiasis N20.1 Acute renal failure N17.9 Acute renal failure type: unspecified Anaplasmosis A77.49 Prostate cancer C61 DM2 (diabetes mellitus, type 2) E11.9 (2) Acute renal failure Acute renal failure type: unspecified Qualified Code(s): N17.9 - Acute kidney failure, unspecified"
--- NOTE | 2025-04-18 18:17 | XRay Report ---
2 views of the abdomen were obtained Findings: There are prominent dilated air-filled bowel loops, likely due to ileus. There is a right ureteral stent. There is a suspected 2 mm right renal calculus. There are surgical coils in the left lower quadrant. There is lumbar scoliosis and degenerative disc disease Impression: 1. Prominent bowel dilatation, likely due to ileus 2. Right ureteral stent 3. Small right renal calculus Electronically signed by Feliberto Brown 04-18-2025 6:17 PM
[2025-04-18] MEDS: LACTATED RINGER'S 1,000 ML IV SCH (19:00)
--- NOTE | 2025-04-18 19:21 | Ultrasound Report ---
EXAM: Renal ultrasound bladder retroperitoneal complete COMPARISON: None CLINICAL HISTORY: Back pain TECHNIQUE: Ultrasound interrogation of the kidneys was performed with grayscale and color Doppler imaging. FINDINGS: The kidneys are normal in size, configuration and echogenicity. The right kidney measures 14.1 x 5.1 x 4.6 cm. No hydronephrosis, calculus or mass. The left kidney measures 13.3 x 5.9 x 4.6 cm. No hydronephrosis, calculus or mass. Urinary bladder under distended. Ureteral jets were not identified. IMPRESSION: No sonographic evidence of a renal calculus or hydronephrosis. Urinary bladder under distended without jets identified. Electronically signed by Fatmata Lyn 04-18-2025 7:20 PM
[2025-04-18] MEDS: MELATONIN 3 MG TAB PO PRN (20:36)
[2025-04-18] MEDS: POLYETHYLENE (MIRALAX) 17 GM PACK PO PRN (20:41)
[2025-04-18] MEDS: LIDOCAINE 5% 1 PATCH TD STA (22:51)
[2025-04-18] MEDS: METHOCARBAMOL 500 MG TABLET PO ONE (22:51)
[2025-04-19 08:06] LABS: Hematocrit (blood only) 40.8 % (42.0-52.0); Hemoglobin 13.9 g/dl (14.0-18.0); Mean Corpuscular Hemoglobin 28.5 pg (25.0-34.0); Mean Corpuscular Volume 83.8 fL (80.0-100.0); Platelet Count 162 K/uL (130-400); RDW Standard Deviation 40.6 fL (36.4-46.3); Red Blood Count 4.87 M/uL (4.70-6.10); White Blood Count 8.23 K/ul (4.8-10.8)
[2025-04-19 08:16] LABS: Anion Gap 8.0 (3-11); Blood Urea Nitrogen 23.0 mg/dl (6-23); Calcium 9.2 mg/dl (8.6-10.3); Carbon Dioxide 27.0 mmol/L (21-32); Chloride 98.0 mmol/L (98-107); Creatinine Clr Calc Pharmacy 62.6 ml/min; Glucose 152.0 mg/dl (70-99(Fasting)); Potassium 4.1 mmol/L (3.5-5.1); Sodium 133.0 mmol/L (136-145)
[2025-04-19 08:29] LABS: Immature Granulocytes # (auto) 0.53 K/uL (0.01-0.20); Immature Granulocytes % (auto) 6.4 %
[2025-04-19] MEDS: PANTOprazole 40 MG/10 ML SYR IV SCH (09:41)
--- NOTE | 2025-04-19 09:43 | Gastrointestinal Consultation ---
Date of Consultation April 19, 2025 Assessment & Plan (1) Abnormal CT scan, small bowel: Abnormal duodenum noted on CT scan (duodenitis vs ulcer). -He had clear liquids early this morning. Make NPO and plan for EGD this afternoon. -Add IV Protonix 40 mg BID. -Continue to monitor H/H. Of note, patient's KUB did show an ileus. Patient did report that he has not moved his bowels for several days. He is prescribed Miralax. Will increase dosage. Will plan to obtain the work-up for upper GI issues, but patient may need a more aggressive bowel regimen. Supervising Physician Co-Signing Physician Notes Admitted with urolithiasis CT shows thickening abnormality of duodenum. Patient's been having nausea and vomiting. Also notes some decreased bowel frequency. This may just be related to no urolithiasis. Evaluate duodenum for peptic ulcer disease gastric L obstruction less likely neoplasia. EGD today. Risk benefits discussed with patient informed consent obtained History of Present Illness Reason for Consultation: Abnormal CT duodenum Attending Physician: Markell Urena MD History of Present Illness Patient is a 74 yo male who is currently admitted due to urologic concerns of hydronephrosis/R ureteral stone s/p cystoscopy with stent placement. While admitted, a CT scan indicated a concern for thickening of his duodenum possibly rental sales representative of duodenitis vs PUD. He denies upper abdominal pain. He notes some constipation, but denies melena, hematemesis, coffee ground emesis, n/v, or heartburn. He takes a baby Aspirin daily but denies other NSAID use. No anticoagulation. He denies a history of ulcers in the past. He notes a colonoscopy at [facility] within the past 2 years that was reportedly unremarkable, but he denies ever having an EGD. H/H 13.9/40.8. BUN 23, Cr 1.17. No pertinent family history. He does not take a PPI. He does acknowledge constipation. A KUB from this AM showed an ileus. IMPRESSION: 1. Moderate right hydroureteronephrosis to a 7 mm stone just above the right UVJ. 2. There is moderate thickening of the duodenum. Findings most concerning for duodenitis or peptic ulcer disease. No definite evidence of acute pancreatitis but correlate with pancreatic enzymes. 3. Extensive colonic diverticulosis. No diverticulitis. 4. Trace layering pleural effusions. Allergies Allergy/AdvReac Type Severity Reaction Status Date / Time propofol AdvReac Verified 04/15/23 13:54 Home Medications Medication Instructions Recorded Confirmed Type aspirin 81 mg capsule 81 mg PO DAILY 04/15/23 04/15/25 History dextroamphetamine-amphetamine ER 40 mg PO DAILY 04/15/23 04/15/25 History 20 mg 24hr capsule,extend release dulaglutide 0.75 mg/0.5 mL 0.75 mg subcut WK 04/15/23 04/15/25 History subcutaneous pen injector (Trulicity) escitalopram oxalate 20 mg tablet 20 mg PO DAILY 04/15/23 04/15/25 History lamotrigine 100 mg tablet 50 mg PO BID 04/15/23 04/15/25 History losartan 25 mg tablet 50 mg PO DAILY 04/15/23 04/15/25 History metformin 1,000 mg tablet 0 mg PO BID 04/15/23 04/15/25 History naltrexone 50 mg tablet 50 mg PO DAILY 04/15/23 04/15/25 History rosuvastatin 20 mg tablet 20 mg PO DAILY 04/15/23 04/15/25 History tadalafil 20 mg tablet 0 mg PO DAILY PRN Other 04/15/23 04/15/25 History ondansetron 4 mg disintegrating 4 mg PO UD PRN n/v 04/15/25 04/15/25 History tablet oxycodone 5 mg tablet 5 mg PO UD PRN Pain 04/15/25 04/15/25 History tamsulosin 0.4 mg capsule 0.4 mg PO DAILY 04/15/25 04/15/25 History Patient History Medical History Anaplasmosis Ureterolithiasis Prostate cancer Acute renal failure DM2 (diabetes mellitus, type 2) Thrombocytopenia Surgical History Hx of colonoscopy History of prostate surgery Hx of hernia repair Hx of cystoscopy Social History Smoking Status: Never smoker Hx Alcohol Use: Yes Alcohol type: beer Hx Substance Use: No Preferred Language: Sammarinese Communication Ability: Effective Sustainability Officer Required: No Beliefs That Will Affect Care: None Current Living Situation: Spouse Feels Safe at Home: Yes Assistive Devices: Walker Review of Systems Constitutional: no fever and no chills Respiratory: no cough and no dyspnea Cardiovascular: no chest pain Gastrointestinal: + constipation; no abdominal pain, no he artburn, no nausea, no vomiting, no coffee ground emesis, no hematemesis, no blood in stools and no melena Physical Exam Constitutional: well developed Respiratory: normal respiratory effort Gastrointestinal (Abdomen): normal bowel sounds, soft, nontender, no hepat osplenomegaly Psychiatric: Orientation: alert and oriented x 3 Results & Data Vital Signs (Past 12 Hours) Vital Signs Temp Pulse Resp BP Pulse Ox O2 Del Method 04/19/25 08:03 36.8 C 76 16 128/78 98 Room Air 04/18/25 23:24 36.7 C 77 16 113/71 98 Room Air PG Care Time/CCT Total # of Minutes Spent Total Time Spent with Patient: Total time spent is greater than 50% in coordination of care (as documented) at patient's floor/unit and/or counseling patient: Coding Level of Care Code 97291 INT INP/OBS CARE 3/75MIN Diagnoses Abnormal CT scan, small bowel R93.3
[2025-04-19] MEDS: REMOVE LIDODERM PATCH SCH ×2 (11:29→21:01)
--- NOTE | 2025-04-19 12:46 | Urology Progress Note ---
Date of Service April 19, 2025 Assessment & Plan (1) Right ureteral stone: (2) Hydronephrosis due to obstruction of ureter: Plan Postop day #3 status post cystoscopy and right ureteral stent placement Tolerating the right ureteral stent with minimal bother Has had left lower back discomfort Renal ultrasound yesterday with no sonographic evidence of stones or hydronephrosis KUB showed an ileus, the right ureteral stent in place, and a possible small right renal stone He is afebrile and hemodynamically stable Labs today show no leukocytosis, creatinine 1.17 Urine culture grew Staphylococcus epidermidis Patient continues on doxycycline No further acute intervention warranted Continue antibiotic therapy for treatment of infection Continue tamsulosin and pain medication as needed Can consider Pyridium and oxybutynin as needed for stent management Continue supportive care and management per primary team/GI Will arrange outpatient follow-up with our service Urology will sign-off, can recall as needed Admission and Anticipated Discharge Date Admission Date: April 15, 2025 Subjective Patient seen at bedside this morning. Awake and sitting in bedside chair on arrival. No acute distress. Tolerating the stent with minimal bother. Reports he is voiding without issue. Still with complaints of left lower back pain/spasms. Reports his pain has improved some since yesterday. Had a KUB yesterday that showed an ileus. No BM in several days. He is scheduled for EGD later this afternoon. Review of Systems Constitutional: as per Subjective / HPI Genitourinary: + as per Subjective / HPI Physical Exam Constitutional: no acute distress Respiratory: no respiratory distress and no labored breathing Neurologic: moves all extremities and awake Psychiatric: A+Ox3, euthymic affect Results & Data Vital Signs (Past 12 Hours) Vital Signs Temp Pulse Resp BP Pulse Ox O2 Del Method 04/19/25 08:03 36.8 C 76 16 128/78 98 Room Air PG Care Time/CCT Total # of Minutes Spent Total Time Spent with Patient: Total time spent is greater than 50% in coordination of care (as documented) at patient's floor/unit and/or counseling patient: Coding Level of Care Code 34121 SUB INP/OBS CARE 2/35MIN Diagnoses Right ureteral stone N20.1 Hydronephrosis due to obstruction of ureter N13.1
--- NOTE | 2025-04-19 13:39 | Anesthesiology Consultation ---
Date of Service April 19, 2025 Assessment & Plan Chart Review Chart Review: Acceptable Risk for Surgery and Patient NOT seen in Pre Admission Testing Consults Requested none ASA ASA3 Proposed Anesthesia Anesthesia Type: MAC History Surgery Operation Date: 04/16/25 09:30 Proposed Procedures p Cystoscopy Retrograde, Right Stent Insertion - Morgan Manuel MD Operation Date: 04/19/25 17:35 Proposed Procedures p Esophagogastroduodenoscopy Dr. Whipple - Cody Whipple MD Height/Weight Height: 6 ft Weight: 87.22 kg Allergies Allergy/AdvReac Type Severity Reaction Status Date / Time propofol AdvReac Verified 04/15/23 13:54 Medications Home Medications Medication Instructions Recorded Confirmed Last Taken aspirin 81 mg capsule 81 mg PO DAILY 04/15/23 04/15/25 Unknown dextroamphetamine-amphetamine ER 40 mg PO DAILY 04/15/23 04/15/25 Unknown 20 mg 24hr capsule,extend release dulaglutide 0.75 mg/0.5 mL 0.75 mg subcut WK 04/15/23 04/15/25 Unknown subcutaneous pen injector (Trulicity) escitalopram oxalate 20 mg tablet 20 mg PO DAILY 04/15/23 04/15/25 Unknown lamotrigine 100 mg tablet 50 mg PO BID 04/15/23 04/15/25 Unknown losartan 25 mg tablet 50 mg PO DAILY 04/15/23 04/15/25 Unknown metformin 1,000 mg tablet 0 mg PO BID 04/15/23 04/15/25 Unknown naltrexone 50 mg tablet 50 mg PO DAILY 04/15/23 04/15/25 Unknown rosuvastatin 20 mg tablet 20 mg PO DAILY 04/15/23 04/15/25 Unknown tadalafil 20 mg tablet 0 mg PO DAILY PRN Other 04/15/23 04/15/25 Unknown ondansetron 4 mg disintegrating 4 mg PO UD PRN n/v 04/15/25 04/15/25 Unknown tablet oxycodone 5 mg tablet 5 mg PO UD PRN Pain 04/15/25 04/15/25 Unknown tamsulosin 0.4 mg capsule 0.4 mg PO DAILY 04/15/25 04/15/25 Unknown Active Medications Generic Name Dose Route Start Last Admin Trade Name Freq PRN Reason Stop Dose Admin Acetaminophen 650 mg 04/15/25 19:02 04/19/25 12:31 Acetaminophen 325 Mg Tab PO 05/15/25 19:01 650 mg Q4H PRN Administration pain mild Amphetamine/Dextroamphetamine 40 mg 04/16/25 09:00 04/19/25 09:39 Dextroamphetamine/Amphetamine Er 10 Mg Cap PO 04/30/25 08:59 Not Given DAILY JAN Aspirin 81 mg 04/16/25 09:00 04/19/25 09:39 Aspirin 81 Mg Ectab PO 05/16/25 08:59 Not Given DAILY JAN Cyclobenzaprine HCl 5 mg 04/17/25 16:21 04/18/25 20:37 Cyclobenzaprine Hcl 5 Mg Tab PO 05/17/25 20:59 5 mg BID PRN Administration Muscle Spasm Escitalopram Oxalate 20 mg 04/16/25 09:00 04/19/25 09:39 Escitalopram Oxalate 20 Mg Tab PO 05/16/25 08:59 Not Given DAILY JAN Doxycycline Hyclate 100 mg/ 100 mls @ 50 mls/hr 04/16/25 04:00 04/19/25 05:46 Dextrose IV 04/30/25 03:59 Infused Q12H JAN Infusion Lactated Ringer's 1,000 mls @ 80 mls/hr 04/18/25 19:00 04/19/25 07:58 Lr IV 04/21/25 18:59 80 mls/hr .[id number] JAN Administration Pantoprazole Sodium 40 mg in 10 mls @ 5 mls/min 04/19/25 09:00 04/19/25 09:41 Protonix IV 05/19/25 08:59 5 mls/min BID JAN Administration Insulin Aspart 0 units 04/15/25 21:00 04/19/25 11:53 Insulin Aspart Per Unit Charge SC 05/15/25 20:59 Not Given ACHS JAN Lamotrigine 50 mg 04/15/25 21:00 04/19/25 09:40 Lamotrigine 25 Mg Tab PO 05/15/25 20:59 50 mg BID JAN Administration Protocol Magnesium Hydroxide 30 ml 04/15/25 19:02 04/18/25 13:17 Magnesium Hydroxide Susp 30 Ml Udc PO 05/15/25 19:01 30 ml Q6H PRN Administration Constipation Melatonin 3 mg 04/15/25 19:02 04/18/25 20:36 Melatonin 3 Mg Tab PO 05/15/25 19:01 3 mg HS PRN Administration Insomnia Ondansetron HCl 4 mg 04/15/25 19:02 04/15/25 19:27 Ondansetron Inj 2 Mg/Ml 2 Ml Vial IV 05/15/25 19:01 4 mg Q6H PRN Administration Nausea Polyethylene Glycol 17 gm 04/15/25 19:02 04/18/25 20:41 Polyethylene (Miralax) 17 Gm Pack PO 05/15/25 19:01 17 gm DAILY PRN Administration Constipation Rosuvastatin Calcium 20 mg 04/16/25 09:00 04/19/25 09:39 Rosuvastatin Calcium 20 Mg Tab PO 05/16/25 08:59 Not Given DAILY JAN Tamsulosin HCl 0.4 mg 04/16/25 09:00 04/19/25 09:39 Tamsulosin Hcl 0.4 Mg Cap PO 05/16/25 08:59 Not Given DAILY JAN Tramadol HCl 50 mg 04/18/25 14:55 04/19/25 12:31 Tramadol Hcl 50 Mg Tablet PO 05/18/25 14:54 50 mg Q4H PRN Administration Pain Past Medical History Medical History Anaplasmosis Ureterolithiasis Prostate cancer Acute renal failure DM2 (diabetes mellitus, type 2) Thrombocytopenia HLD GERD Bipolar ADHD Exercise / Class Metabolic Activity III < 4 Walking/Shop/Light housework Past Surgical History Surgical History Hx of colonoscopy History of prostate surgery Hx of hernia repair Hx of cystoscopy Past Anesthesia History No Hx of Anesthesia Complications and No Family Hx of Anesthesia Complications History of PONV No Hx of PONV and No Hx of Motion Sickness Social History Smoking Status: Never smoker Hx Alcohol Use: Yes Alcohol type: beer alcohol intake frequency: holidays/special occasions only Hx Substance Use: No Physical Exam Vital Signs Last Vital Signs Temp 36.8 C 04/19/25 08:03 Pulse 76 04/19/25 08:03 Resp 16 04/19/25 08:03 BP 128/78 04/19/25 08:03 Pulse Ox 98 04/19/25 08:03 O2 Del Method Room Air 04/19/25 08:03 Testing Laboratory Results 04/19/25 07:05 04/19/25 07:05 PT 10.7 Seconds (9.0-12.0) 04/15/25 14:00 INR 1.0 (0.9-1.1) 04/15/25 14:00 Hemoglobin A1c 6.3 % (4.5-5.6) H 04/16/25 06:09 Urine Color Yellow 04/15/25 15:05 Urine Appearance Cloudy (Clear) A 04/15/25 15:05 Urine pH 5.5 (4.5-7.5) 04/15/25 15:05 Ur Specific [place] 1.021 (1.000-1.030) 04/15/25 15:05 Urine Protein 2+ (Negative) H 04/15/25 15:05 Urine Glucose (UA) Negative (Negative) 04/15/25 15:05 Urine Ketones 1+ (Negative) H 04/15/25 15:05 Urine Nitrite Negative (Negative) 04/15/25 15:05 Ur Leukocyte Esterase 2+ (Negative) H 04/15/25 15:05 Urine WBC (Auto) >50 /hpf (0-5) H 04/15/25 15:05 Urine RBC (Auto) 3-5 /hpf (0-2) H 04/15/25 15:05 U Hyaline Cast (Auto) 6-10 /lpf (0-2) H 04/15/25 15:05 U Epithel Cells (Auto) 6-10 /hpf (0-2) H 04/15/25 15:05 Urine Bacteria (Auto) 1+ (None Seen) H 04/15/25 15:05 04/15/25 15:05 Urine Culture - Final Urine,Clean Catch Staphylococcus epidermidis 04/19/25 04/19/25 11:46 07:43 POC Glucose 144 H 130 H
[2025-04-19] MEDS ORDERED: ATROPINE SULFATE 0.1 MG/ML 10ML SYR IV PRN (14:58)
--- NOTE | 2025-04-19 16:19 | Communication Note ---
Date of Service: April 19, 2025 EGD Probation is down no images available. Patient has 2 large duodenal ulcers appearance is benign the biopsies were performed. No visible bleeding or stigmata. Twice daily PPI therapy. Treat H. pylori present. Avoid NSAIDs.
--- NOTE | 2025-04-19 16:57 | Hospitalist Progress Note ---
"Date of Service April 19, 2025 Assessment & Plan (1) Ureterolithiasis: (2) Acute renal failure: (3) Anaplasmosis: (4) Prostate cancer: (5) DM2 (diabetes mellitus, type 2): Plan This patient is a 74-year-old male who presented on 04/15 for bilateral flank pain, nausea, and vomiting. #Symptomatic ureterolithiasis | hydronephrosis | Urinary tract infection -A/P CT revealed a 7 mm kidney stone -Underwent cystoscopy and right ureteral stent insertion with Dr. Manuel on 04/16 -UC with anastasiya rizo, in setting of ureterolithiasis treating with Doxy as he is already on IV for Anaplasma, called micro to determine if they can add on sensitivity for Doxy and will check in am, will add Cephalexin if needed -Carb consistent diet -Continue Flomax, add Oxybutynin -d/c IV Dilaudid, IV antiemetics, Tramadol PO PRN for pain -added Flexeril prn for muscle spams vs still persistent renal colic discomfort from stent placement -recall with urology, renal US normal ##Mid-abdominal pain|LUQ abdominal pain -CTAP on admission with findings concerning for duodenitis/PUD -lipase WNL -Protonix 40mg po, Pepcid 40mg po -KUB with ileus, Miralax increased to BID per GI -GI consult with rec for EGD ##LIZ (resolved) -Cr 2.49 on arrival (baseline Cr 1.20) -Suspect combination of prerenal (dehydration) and postrenal (obstructive stone) -Cr downtrended to normal post stent placement -Hold losartan and metformin #Anaplasmosis | thrombocytopenia -incidental finding -The lab called - inclusion bodies consistent with Anaplasma and confirmed with pathology that this was the case -Probably explains his thrombocytopenia, possibly explains his elevated bilirubin (although it is more common to cause transaminitis) and almost certainly explains his rigors the other day -Continue doxycycline 100 mg IV BID -platelets improving #Diabetes -Last A1c 6.3% on 04/16/2025 -Hold Trulicity and metformin -BSG ACHS #ADHD and bipolar -Continue Lexapro and dextroamphetamine -Continue Lamictal #Constipation -MiraLAX increased to BID per GI for ileus -dosing with MOM PRN Disposition: Continued stay on MedSurg, possible d/c tomorrow VTE PPx: SCDs; defer chemical DVT PPx in setting of LIZ + thrombocytopenia Admission and Anticipated Discharge Date Admission Date: April 15, 2025 Supervising Physician Co-Signing Physician Notes I did not see or examine the patient. I verified all carrasco points and agree with KWABENA Cohn with the following exceptions and/or additions: None Subjective States he is passing gas and his abdominal pain has slightly improved. Tolerating clear liquids. Review of Systems Review of Systems: All systems reviewed & are unremarkable except as noted in Subjective Physical Exam Physical Exam: GENERAL APPEARANCE: A&O. Sitting in chair. NAD. SKIN: Normal color without rashes or lesions. Normal turgor. HEENT: Head AT/NC. Buccal mucosa is moist and pink. NECK: No jugular venous distention. No thyroid enlargement. There is no lymphadenopathy. HEART: RRR without m/g/r LUNGS: Normal inspiratory effort. CTA without w/r/r ABDOMEN: No guarding or rigidity. Normoactive BS in all four quadrants. Abdomen distended and soft. No tenderness to palpation. MSK: No bony gross/deformities throughout. ROM intact. EXTREMITIES: No edema, No peripheral cyanosis. Neuro: CN 2-12 grossly intact. No focal neuro deficits PSYCHIATRIC: Normal affect. Eye contact is good. Speech is normal rate and content. Responses are appropriate. Results & Data Results & Data Vital Signs (Past 12 Hours) Vital Signs Temp Pulse Resp BP Pulse Ox O2 Del Method 04/19/25 16:51 36.2 C L 88 12 108/86 98 Room Air 04/19/25 16:36 36.2 C L 78 12 132/82 91 Room Air 04/19/25 16:21 36.2 C L 75 12 106/66 94 Room Air 04/19/25 14:52 36.2 C L 68 16 130/85 97 Room Air 04/19/25 08:03 36.8 C 76 16 128/78 98 Room Air Laboratory Results Labs reviewed: CBC, BMP PG Care Time/CCT Total # of Minutes Spent Total Time Spent with Patient: Total time spent is greater than 50% in coordination of care (as documented) at patient's floor/unit and/or counseling patient: Coding Level of Care Code 83477 SUB INP/OBS CARE 3/50MIN Diagnoses Ureterolithiasis N20.1 Acute renal failure N17.9 Acute renal failure type: unspecified Anaplasmosis A77.49 Prostate cancer C61 DM2 (diabetes mellitus, type 2) E11.9 (2) Acute renal failure Acute renal failure type: unspecified Qualified Code(s): N17.9 - Acute kidney failure, unspecified"
[2025-04-19] MEDS: LIDOCAINE 2% 2 ML VIAL/AMP(20MG/ML) INFIL ONE (17:15)
[2025-04-19] MEDS: PROPOFOL IV EMULSION 10 MG/ML 20 ML VIAL IV ONE (17:15)
[2025-04-19] MEDS: PHENYLEPHRINE 100MCG/ML 5ML SYR ONE (17:15)
[2025-04-19] MEDS: LIDOCAINE 5% 1 PATCH TD SCH (18:12)
--- NOTE | 2025-04-19 18:37 | Anesthesiology Progress Note ---
Date of Service April 19, 2025 Anesthesia Post Procedure Vital Signs Vital Signs: Temp Pulse Resp BP Pulse Ox O2 Del Method 04/19/25 17:10 36.7 C 78 20 126/75 98 Room Air 04/19/25 16:51 36.2 C L 88 12 108/86 98 Room Air 04/19/25 16:36 36.2 C L 78 12 132/82 91 Room Air 04/19/25 16:21 36.2 C L 75 12 106/66 94 Room Air 04/19/25 14:52 36.2 C L 68 16 130/85 97 Room Air 04/19/25 08:03 36.8 C 76 16 128/78 98 Room Air 04/18/25 23:24 36.7 C 77 16 113/71 98 Room Air 04/18/25 20:11 Room Air Pain Intensity Bilateral Back: Pain Intensity: 8 Left Arm: Pain Intensity: 8 Lower Back: Pain Intensity: 8 Transfer of Care Handoff Completed per policy Notes Mental Status: alert / awake / arousable Patient Amnestic to Procedure: Yes Nausea / Vomiting: adequately controlled Pain: adequately controlled Airway Patency, RR, SpO2: stable & adequate BP & HR: stable & adequate Hydration State: stable & adequate Anesthetic Complications: no major complications apparent and Pt Satisfied with anesthetic care
[2025-04-19] MEDS ORDERED: POLYETHYLENE (MIRALAX) 17 GM PACK PO SCH (21:00)
[2025-04-19] MEDS: POLYETHYLENE (MIRALAX) 17 GM PACK PO SCH (21:01)
[2025-04-20] MEDS: POLYETHYLENE (MIRALAX) 17 GM PACK PO ONE (06:09)
[2025-04-20] MEDS: CYCLOBENZAPRINE HCL 5 MG TAB PO STA (06:10)
[2025-04-20 07:45] VITALS: RESP 16
--- NOTE | 2025-04-20 09:55 | GI REPORT ---
[facility] Patient: TANNER ELIZABETH : 1950 Sex at : Male Age: 74 Years Procedure: Upper GI endoscopy Date: 04/19/2025 Attending Physician: Cody Whipple MD Referring MD: Markell Urena MD Indications: - Abnormal CT scan, Doudenitis - Abnormal imaging, duodenitis Medications: - Monitored Anesthesia Care Complications: - No immediate complications. Estimated Blood Loss: - Estimated blood loss was minimal. Procedure: - The EGD scope was introduced through the mouth and advanced to the second part of the duodenum. - The upper GI endoscopy was accomplished without difficulty. - The patient tolerated the procedure well. Findings: - Food was found in the upper third of the esophagus. Food debris - The entire examined stomach was normal. Biopsies were taken with a cold forceps for Helicobacter pylori testing. Estimated blood loss was minimal. - Two non-bleeding cratered duodenal ulcers with no stigmata of bleeding were found in the duodenal bulb. The largest lesion was 30 mm in largest dimension. Biopsies were taken with a cold forceps for histology. Estimated blood loss was minimal. Impression: - 2 large duodenal ulcers kissing type, extending from the In the second part of the duodenum. Biopsies for histology based on extensive nature. Biopsies and antrum for H. pylori - Food in the upper third of the esophagus. - Food debris - Normal stomach. Biopsied. - Non-bleeding duodenal ulcers with no stigmata of bleeding. Biopsied. Recommendation: - Await pathology results. - Twice daily Protonix x 3 months. - Avoid NSAIDs - Can continue aspirin if felt to be essential to his cardiac or neurostatus Procedure Code(s): - 48028, Esophagogastroduodenoscopy, flexible, transoral; with biopsy, single or multiple Diagnosis Code(s): - T18.128A, Food in esophagus causing other injury, initial encounter - K26.9, Duodenal ulcer, unspecified as acute or chronic, without hemorrhage or perforation CPT(R) - 2023 copyright [employer]. All Rights Reserved. The CPT codes, CCI edits and ICD codes generated are intended as suggestions and were generated based on input data. These codes are preliminary and upon associate biological sales review may be revised to meet current compliance and payer requirements. The provider is responsible for the final determination of appropriate codes, and modifiers. Cody Whipple MD This document has been electronically signed. Note Initiated:04/19/2025 Note Completed:04/20/2025 9:54 AM \\[id number]
[2025-04-20] MEDS ORDERED: MAGNESIUM HYDROXIDE SUSP 30 ML UDC PO PRN (11:13)
--- NOTE | 2025-04-20 11:18 | Gastroenterology Progress Note ---
Date of Service April 20, 2025 Assessment & Plan (1) Duodenal ulceration: Plan: -Biopsies pending -Will need to continue Pantoprazole, but can change to 40 mg BID -Continue to monitor H/H (2) Constipation: Plan: KUB with ileus. Patient requesting Milk of Magnesia in addition to Miralax; he notes if this is unsuccessful he would like an enema. Admission and Anticipated Discharge Date Admission Date: April 15, 2025 Supervising Physician Co-Signing Physician Notes Not clinically bleeding. States he is feeling improved. Large duodenal ulcers. Rule out H. pylori. History of NSAID use in the past though currently only baby aspirin. These lesions can just be from baby aspirin alone. If this is felt to be important for management of his cardiac neural or neural systems it can be continued. Recommend twice daily PPI therapy for approximately a month and then daily indefinitely. Path still pending. Subjective Patient is a 74 yo male with duodenal ulcerations noted on EGD on 04/19/25. He is on IV Protonix. He denies melena. H/H 13.9/40.8 yesterday; no repeat for today. He is requesting Milk of Magnesia in addition to his Miralax. Review of Systems Gastrointestinal: + constipation; no abdominal pain and no melena Physical Exam Constitutional: well developed Respiratory: normal respiratory effort Cardiovascular: Rate/Rhythm: regular rate Gastrointestinal (Abdomen): Inspection/Auscultation: abdomen normal to inspection Results & Data Results & Data Vital Signs (Past 12 Hours) Vital Signs Temp Pulse Resp BP Pulse Ox O2 Del Method 04/20/25 07:44 37.1 C 92 H 16 135/79 96 Room Air 04/19/25 23:26 36.7 C 85 18 124/79 97 Room Air PG Care Time/CCT Total # of Minutes Spent Total Time Spent with Patient: Total time spent is greater than 50% in coordination of care (as documented) at patient's floor/unit and/or counseling patient: Coding Level of Care Code 47952 SUB INP/OBS CARE 2/35MIN Diagnoses Duodenal ulceration K26.9 Constipation K59.00
[2025-04-20] MEDS: SENNA 8.6 MG TAB PO SCH (15:43)
--- NOTE | 2025-04-20 18:10 | Hospitalist Progress Note ---
"Date of Service April 20, 2025 Assessment & Plan (1) Ureterolithiasis: (2) Acute renal failure: (3) Anaplasmosis: (4) Prostate cancer: (5) DM2 (diabetes mellitus, type 2): Plan This patient is a 74-year-old male who presented on 04/15 for bilateral flank pain, nausea, and vomiting. #Symptomatic ureterolithiasis | hydronephrosis | Urinary tract infection -A/P CT revealed a 7 mm kidney stone -Underwent cystoscopy and right ureteral stent insertion with Dr. Manuel on 04/16 -UC with staph epidermis, treating with with Doxy for Anaplasma with sensitivity appreciated for staph -Carb consistent diet -Continue Flomax, add Oxybutynin -d/c IV Dilaudid, IV antiemetics, Tramadol PO PRN for pain -added Flexeril prn for muscle spams vs still persistent renal colic discomfort from stent placement -recall with urology, renal US normal ##Mid-abdominal pain|LUQ abdominal pain -CTAP on admission with findings concerning for duodenitis/PUD -lipase WNL -Protonix 40mg po BID -KUB with ileus, Miralax increased to TID, added Senna/taking MOM, + passing gas, +bowel sounds -GI consult with EGD 04/19 2 large kissing duodenal ulcers with rec for Protonix BID times three months, avoidance of NSAIDs, path for H.Pylori ##LIZ (resolved) -Cr 2.49 on arrival (baseline Cr 1.20) -Suspect combination of prerenal (dehydration) and postrenal (obstructive stone) -Cr downtrended to normal post stent placement -Hold losartan and metformin #Anaplasmosis | thrombocytopenia -incidental finding -The lab called - inclusion bodies consistent with Anaplasma and confirmed with pathology that this was the case -Probably explains his thrombocytopenia, possibly explains his elevated bilirubin (although it is more common to cause transaminitis) and almost certainly explains his rigors the other day -Doxy IV changed to po -platelets improving #Diabetes -Last A1c 6.3% on 04/16/2025 -Hold Trulicity and metformin -BSG ACHS #ADHD and bipolar -Continue Lexapro and dextroamphetamine -Continue Lamictal #Constipation -MiraLAX increased to BID per GI for ileus -dosing with MOM PRN Disposition: Continued stay on MedSurg, possible d/c tomorrow VTE PPx: SCDs; defer chemical DVT PPx in setting of LIZ + thrombocytopenia Admission and Anticipated Discharge Date Admission Date: April 15, 2025 Supervising Physician Co-Signing Physician Notes I did not see or examine the patient. I verified all carrasco points and agree with KWABENA Cohn with the following exceptions and/or additions: Suspect staph epidermidis in urine is contaminant and dose not need treatment Continue doxycycline for anaplasmosis No need for IV fluids, confirmed eating well with his nurse, this was discontinued Unclear why he is on aspirin, will place this on hold given duodenal ulcers Not requiring significant doses of insulin, HbA1C 6.3, will d/c BSG checks and insulin order Consider VTE prophylaxis if he stays past tomorrow given LIZ and thrombocytopenia have resolved Subjective Patients states he is feeling better today. Pain to left lower back area improved-using Lidocaine patch. Has been taking Miralax and passing gas. Still with no BM. No nausea/vomiting and tolerating clear liquids since ileus was identified. No melena. Review of Systems Review of Systems: All systems reviewed & are unremarkable except as noted in Subjective Physical Exam Physical Exam: GENERAL APPEARANCE : A&O. Sitting in chair. NAD. SKIN: Normal color witho ut rashes or lesio ns. Normal turgor . HEENT: Head AT/N C. Buccal mucosa i s moist and pink. NECK: No jugular v enous distention. No thyroid enlarge ment. There is no lymphadenopathy. H EART: RRR without m/g/r LUNGS: Jerri l inspiratory effo rt. CTA without w/ r/r ABDOMEN: No gu arding or rigidity . Normoactive BS i n all four quadran ts. Abdomen disten ded and soft. No t enderness to palpa tion. MSK: No bony gross/deformities throughout. ROM i ntact. EXTREMITIE S: No edema, No pe ripheral cyanosis. Neuro: CN 2-12 gr ossly intact. No f ocal neuro deficit s PSYCHIATRIC: Nor mal affect. Eye co ntact is good. Spe ech is normal rate and content. Resp onses are appropri ate. Results & Data Results & Data Vital Signs (Past 12 Hours) Vital Signs Temp Pulse Resp BP Pulse Ox O2 Del Method 04/20/25 14:50 36.6 C 79 16 128/86 94 Room Air 04/20/25 07:44 37.1 C 92 H 16 135/79 96 Room Air PG Care Time/CCT Total # of Minutes Spent Total Time Spent with Patient: Total time spent is greater than 50% in coordination of care (as documented) at patient's floor/unit and/or counseling patient: Coding Level of Care Code 03254 SUB INP/OBS CARE 3/50MIN Diagnoses Ureterolithiasis N20.1 Acute renal failure N17.9 Acute renal failure type: unspecified Anaplasmosis A77.49 Prostate cancer C61 DM2 (diabetes mellitus, type 2) E11.9 (2) Acute renal failure Acute renal failure type: unspecified Qualified Code(s): N17.9 - Acute kidney failure, unspecified"
[2025-04-20] MEDS: DOXYCYCLINE HYCLATE 100 MG CAP PO SCH (20:06)
[2025-04-20 23:18] VITALS: O2SAT 95
[2025-04-21 05:56] LABS: Hematocrit (blood only) 41.0 % (42.0-52.0); Hemoglobin 13.8 g/dl (14.0-18.0); Mean Corpuscular Hemoglobin 28.8 pg (25.0-34.0); Mean Corpuscular Volume 85.6 fL (80.0-100.0); Platelet Count 244 K/uL (130-400); RDW Standard Deviation 41.6 fL (36.4-46.3); Red Blood Count 4.79 M/uL (4.70-6.10); White Blood Count 8.51 K/ul (4.8-10.8)
[2025-04-21 06:10] LABS: Anion Gap 5.0 (3-11); Blood Urea Nitrogen 13.0 mg/dl (6-23); Calcium 9.6 mg/dl (8.6-10.3); Carbon Dioxide 31.0 mmol/L (21-32); Chloride 98.0 mmol/L (98-107); Creatinine Clr Calc Pharmacy 66.0 ml/min; Glucose 158.0 mg/dl (70-99(Fasting)); Potassium 4.2 mmol/L (3.5-5.1); Sodium 134.0 mmol/L (136-145)
[2025-04-21 06:23] LABS: Dohle Bodies 1+; Immature Granulocytes # (auto) 0.58 K/uL (0.01-0.20); Immature Granulocytes % (auto) 6.8 %; Toxic Granulation 1+
[2025-04-21 14:31] VITALS: BP 129/77; PULSE 68; TEMP 97.9
--- NOTE | 2025-04-21 14:57 | Discharge Summary ---
"Discharge Summary Date of Service April 21, 2025 Principal Dx & Hospital Course #1 = Principal Diagnosis (1) Ureterolithiasis: (2) Acute renal failure: (3) Anaplasmosis: (4) Prostate cancer: (5) DM2 (diabetes mellitus, type 2): Plan This patient is a 74-year-old male who presented on 04/15 for bilateral flank pain, nausea, and vomiting. He underwent cystoscopy for right ureteral stone with right stent insertion on 04/16/25. Post-operatively he had complaints of left sided flank pain that was possibly related to 7mm kidney stone vs. MSK pain. Urology was recalled and he had a normal US. It was also identified he had duodenitis on his admission CTAP, therefore GI was consulted as he was possibly having referred pain from PUD. EGD revealed 2 large duodenal ulcers. Protonix 40mg po BID recommended. 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 With implementation of Miralax TID, MOM PRN, Senna and prn Dulcolax he was able to produce 4 soft BMs on the day of discharge. He had no nausea, vomiting or diarrhea. His kidney stone pain was controlled with Tylenol and Tramadol PRN. He is discharged in stable condition with close GI, urology and PCP follow up. With PDMP it was verified he had a prescription for Oxycodone filled on 04/12 for 12 tablets, then he was admitted to [facility] on 04/15. He confirms he has this pain medication at home. He is to take Tylenol as needed for pain. Prescriptions for Miralax, Doxycycline and Protonix have been provided to patient. #Symptomatic ureterolithiasis | hydronephrosis | Urinary tract infection -A/P CT revealed a 7 mm kidney stone -Underwent cystoscopy and right ureteral stent insertion with Dr. Manuel on 04/16 -UC with staph epidermis, treating with with Doxy for Anaplasma with sensitivity appreciated for staph -Carb consistent diet -Continue Flomax, add Oxybutynin times one dose -d/c IV Dilaudid, IV antiemetics, Tramadol PO PRN for pain -added Flexeril prn for muscle spams vs still persistent renal colic discomfort from stent placement -recall with urology, renal US normal -prn Tylenol at home for renal colic pain with outside prescription for Oxycodone he already has ##Mid-abdominal pain|LUQ abdominal pain -CTAP on admission with findings concerning for duodenitis/PUD -lipase WNL -Protonix 40mg po BID -KUB with ileus, Miralax increased to TID, added Senna/taking MOM, + passing gas, +bowel sounds -GI consult with EGD 04/19 2 large kissing duodenal ulcers with rec for Protonix BID times three months, avoidance of NSAIDs, path for H.Pylori -d/c home Aspirin as patient was on for primary prevention secondary to duodenal ulcerations -Protonix 40mg po BID on discharge ##LIZ (resolved) -Cr 2.49 on arrival (baseline Cr 1.20) -Suspect combination of prerenal (dehydration) and postrenal (obstructive stone) -Cr downtrended to normal post stent placement -Hekd losartan and metformin #Anaplasmosis | thrombocytopenia -incidental finding -The lab called - inclusion bodies consistent with Anaplasma and confirmed with pathology that this was the case -Probably explains his thrombocytopenia, possibly explains his elevated bilirubin (although it is more common to cause transaminitis) and almost certainly explains his rigors the other day -Doxy IV changed to po, d/c on Doxycycline 100mg po BID to equate for ten day course -platelets normalized #Diabetes -Last A1c 6.3% on 04/16/2025 -Held Trulicity and metformin -BSG ACHS with SSI #ADHD and bipolar -Continue Lexapro and dextroamphetamine -Continue Lamictal #Constipation -KUB with ileus -MiraLAX increased to TID -MOM prn, daily Senna -Dulcolax NV day of d/c with production of 4 soft BMs Disposition: D/C home today VTE PPx: SCDs; patient ambulatory during hospitalization - Notes For Next Care Provider Stop Aspirin, recommendations for daily bowel regimen secondary to chronic cons tipation, Protonix 40mg po BID for duodenal ulcers, treated for Anaplasma with Doxycycline Medication Changes From Visit Protonix 40mg po BID, D/C Aspirin secondary to duodenal ulcerations and only taking for primary prevention, Doxycycline 100mg po BID x 5d Admission HPI Per Admitting Provider Patient is a very pleasant 74-year-old male who has had about a week of right sided flank pain and progressive nausea and vomiting. He notes that he was seen at his local hospital where they identified a kidney stone and told him they would not really be able to do anything to manage it and directed him to [facility]. it sounds like there they reevaluated him and recommended that he follow-up with his primary urologist, and sent him home. In the interim, he has had worsening pain, now actually bilaterally, and intractable nausea and vomiting at times and very poor p.o. intake. He is feeling worse and worse. Incidentally, a few nights ago he had bout of shaking chills quite consistent with rigors. None since. He came to our ER for further evaluation, and right now after 6 mg of morphine he is feeling a bit more comfortable. His past medical history includes ADHD, bipolar, GERD, osteoarthritis, prior kidney stones, hyperlipidemia, well-controlled diabetes. Medications are as per med rec, sounds to have had fairly severe reaction to propofol, past surgical history includes hernia repairs colonoscopy cystoscopy prostate ablation and prior cystoscopes for ureterolithiasis. Family history includes a brother with type 2 diabetes, parents who had heart disease and diabetes in the mom. No tobacco social alcohol. Discharge Exam GENERAL APPEARANCE: A&O. Sitting comfortably on stretcher. NAD. SKIN: Normal color without rashes or lesions. Normal turgor. HEENT: Head AT/NC. Buccal mucosa is moist and pink. NECK: No jugular venous distention. No thyroid enlargement. There is no lymphadenopathy. HEART: RRR without m/g/r LUNGS: Normal inspiratory effort. CTA without w/r/r ABDOMEN: No guarding or rigidity. Normoactive BS in all four quadrants. Abdomen soft and NT. MSK: No bony gross/deformities throughout. ROM intact. EXTREMITIES: No edema, No peripheral cyanosis. Neuro: CN 2-12 grossly intact. No focal neuro deficits PSYCHIATRIC: Normal affect. Eye contact is good. Speech is normal rate and content. Responses are appropriate. Discharge Plan Discharge Items Patient Disposition: Home - Self-Care Reason For Visit: URETEROLITHIASIS Discharge Diagnosis: Right ureteral stone Hydronephrosis due to obstruction of ureter Anaplasmosis Condition on Discharge: Good Activity: Resume your previous activity Bathing: No limitations Driving/Machine Use: No limitations Weightbearing: Full weightbearing Non-emergency contact: Primary Care Provider Call non-emergency contact if: you have any medication questions, your symptoms worsen, your pain is not controlled, your pain is worsening and your pain is concerning for you Follow-up/Referrals: Lawanda Medeiros PA-C [Physician Suspension Cord Tier] - (Follow up as scheduled) Morgan Manuel MD [Physician] - (follow up as scheduled) Evan Parsons M.D. [Primary Care Provider] - Diet: Carb Consistent or DM2 Addtl Attending Provider Instructions: Mr. Lazo, You were admitted to the hospital for a kidney stone and had a stent placed in the right ureter. It was also discovered you have two ulcers in your stomach when you had an EGD. You also have a form of a tick-borne illness that was identified called Anaplasma that was identified on lab work. You had an x-ray done while you were in the hospital that revealed you also had an ileus-we gave you medication to help you move your bowels. Gastroenterology is recommending you take Protonix 40mg twice daily to help your ulcers heal. It is important you follow you with [facility] Gastroenterology on discharge. Case management will reach out to you to secure an appointment. You will also need a follow up appointment with [facility] Urology due to your stent. Case management will also be reaching out to make you aware of your appointment. Please make an appointment with your family doctor within one after your discharge from the hospital. Medications: Your medication list has been reviewed and reconciled upon discharge to ensure accuracy and continuity of care. An updated list of all your medications is included with your hospital discharge paperwork. Please review this list closely, and make note of any changes. We sent a new medication called Protonix to your pharmacy. Take Protonix 40mg two times a day. Start this medication this evening. You will also be sent a medication called Doxycycline to treat your form of tick-borne illness. You will take Doxycycline 100mg twice a day for the next 5 days, including a dose this evening to fully treat your infection. You will also be sent a medication called Miralax to your pharmacy to take daily to continue to help move your bowels. Please take extra strength Tylenol 1000mg every 8 hours as needed for your kidney stone. You should have Oxycodone at home to take from a previous visit at [facility] to take for severe pain. Please stop your aspirin you take daily at home as this will cause additional bleeding in your stomach as you have ulcers present. Take your medications as instructed; do not skip a dose of your medicines. Make sure all of your doctors know every medicine you are taking (including vkoc-bko-wskixtr medicines, vitamins, and supplements). Call your primary care provider before taking any new medicines (including over- the-counter medicines, vitamins, and supplements), because some of these may interact with your current medications, or may make your symptoms worse. Tell your primary care provider if you cannot afford your medications. Activity: You can do normal everyday activities as your body allows. Take rest breaks if you feel tired. Do not overexert. Stop activity if you have pain, shortness of breath or feel dizzy. Follow-up appointments: Make an appointment with your primary care physician within one week of discharge. A copy of this summary will be sent to them. Every time you see your primary care physician, or any other doctor, bring your medication list, and a list of questions. CONTACT YOUR PRIMARY CARE PROVIDER if you experience any of the following: Shortness of breath or difficulty breathing Fevers or chills Feeling tired with normal activity or experiencing dizziness or fainting Difficulty following your treatment plan, or difficulty taking medications CALL 911 OR GO TO THE EMERGENCY DEPARTMENT if you experience any of the following: Severe abdominal pain or nausea/vomiting Severe chest pain, or chest pain that radiates (moves) to your jaw or arm Sudden, severe shortness of breath or difficulty breathing Thank you for allowing us to participate in your care. Pending Studies at Discharge: No Stand-Alone Forms: [facility] PandoDaily, Smoking Cessation Medications and DC Order Prescriptions: New polyethylene glycol 3350 [Miralax] 17 gram Powder In Packet 17 g PO DAILY PRN (Reason: constipation) Qty: 30 0RF doxycycline hyclate 100 mg Capsule 100 mg PO BID Qty: 11 0RF pantoprazole 40 mg Tablet,Delayed Release (Dr/Ec) 40 mg PO BID Qty: 60 0RF Continued metformin 1,000 mg tablet 0 mg PO BID Patient Comments: 04/15- no fill history unable to verify escitalopram oxalate 20 mg tablet 20 mg PO DAILY rosuvastatin 20 mg tablet 20 mg PO DAILY losartan 25 mg tablet 50 mg PO DAILY dextroamphetamine-amphetamine 20 mg capsule,extended release 24hr 40 mg PO DAILY lamotrigine 100 mg tablet 50 mg PO BID naltrexone 50 mg tablet 50 mg PO DAILY Trulicity 0.75 mg/0.5 mL pen injector 0.75 mg subcut WK tadalafil 20 mg tablet 0 mg PO DAILY PRN (Reason: Other) Patient Comments: 04/15- no fill history unable to verify Rx Instructions: administer approximately 30min before sexual activity; do not use more than 1 dose per 24hrs tamsulosin 0.4 mg capsule 0.4 mg PO DAILY ondansetron 4 mg tablet,disintegrating 4 mg PO UD PRN (Reason: n/v) oxycodone 5 mg tablet 5 mg PO UD PRN (Reason: Pain) Discontinued aspirin 81 mg capsule 81 mg PO DAILY Patient Comments: 04/15- otc unable to verify Discharge Orders: Discharge Order (Routine); Ordered 04/21/25 Ordered By: Leydi Huddleston/Other Patient Handouts: Managing Type 2 Diabetes Admission Data Admit Date/Time: 04/15/25 16:41 Attending Provider: Markell Urena Admit Provider: Domingo Vega Primary Care Provider: Evan Parsons Other Providers: Cody Whipple; Morgan Manuel Other Interventions: Discharge Summary Assessment (RN) Last Done: 04/21/25 17:12 Hospital Stay Data Consultations 04/15/25 16:06 ED Decision to Admit Stat 04/15/25 19:02 Consult Urology Routine 04/18/25 14:56 Consult Gastroenterology Routine Procedures Performed Operation Date: 04/19/25 17:35 Actual Procedures p EGD Biopsy Cytology - Cody Whipple MD Diagnostic Imagining Performed 04/15/25 14:54 CT abd pelvis wo con Stat 04/16/25 FL retrograde includes kub Routine 04/18/25 16:02 US Renal Bladder [US renal/blad retro comp] Routine Pending Results Patient Have Any Pending Studies at Discharge: No Discharge Instructions Given to Patient (Per Discharging Provider) Mr. Lazo, You were admitted to the hospital for a kidney stone and had a stent placed in the right ureter. It was also discovered you have two ulcers in your stomach when you had an EGD. You also have a form of a tick-borne illness that was identified called Anaplasma that was identified on lab work. You had an x-ray done while you were in the hospital that revealed you also had an ileus-we gave you medication to help you move your bowels. Gastroenterology is recommending you take Protonix 40mg twice daily to help your ulcers heal. It is important you follow you with [facility] on discharge. Case management will reach out to you to secure an appointment. You will also need a follow up appointment with [facility] due to your stent. Case management will also be reaching out to make you aware of your appointment. Please make an appointment with your family doctor within one after your discharge from the hospital. Medications: Your medication list has been reviewed and reconciled upon discharge to ensure accuracy and continuity of care. An updated list of all your medications is included with your hospital discharge paperwork. Please review this list closely, and make note of any changes. We sent a new medication called Protonix to your pharmacy. Take Protonix 40mg two times a day. Start this medication this evening. You will also be sent a medication called Doxycycline to treat your form of tick-borne illness. You will take Doxycycline 100mg twice a day for the next 5 days, including a dose this evening to fully treat your infection. You will also be sent a medication called Miralax to your pharmacy to take daily to continue to help move your bowels. Please take extra strength Tylenol 1000mg every 8 hours as needed for your kidney stone. You should have Oxycodone at home to take from a previous visit at [facility] to take for severe pain. Please stop your aspirin you take daily at home as this will cause additional bleeding in your stomach as you have ulcers present. Take your medications as instructed; do not skip a dose of your medicines. Make sure all of your doctors know every medicine you are taking (including o lng-rcb-cnicnbh medicines, vitamins, and supplements). Call your primary care provider before taking any new medicines (including over- the-counter medicines, vitamins, and supplements), because some of these may interact with your current medications, or may make your symptoms worse. Tell your primary care provider if you cannot afford your medications. Activity: You can do normal everyday activities as your body allows. Take rest breaks if you feel tired. Do not overexert. Stop activity if you have pain, shortness of breath or feel dizzy. Follow-up appointments: Make an appointment with your primary care physician within one week of discharge. A copy of this summary will be sent to them. Every time you see your primary care physician, or any other doctor, bring your medication list, and a list of questions. CONTACT YOUR PRIMARY CARE PROVIDER if you experience any of the following: Shortness of breath or difficulty breathing Fevers or chills Feeling tired with normal activity or experiencing dizziness or fainting Difficulty following your treatment plan, or difficulty taking medications CALL 911 OR GO TO THE EMERGENCY DEPARTMENT if you experience any of the following: Severe abdominal pain or nausea/vomiting Severe chest pain, or chest pain that radiates (moves) to your jaw or arm Sudden, severe shortness of breath or difficulty breathing Thank you for allowing us to participate in your care. Supervising Physician Co-Signing Physician Notes I did not see of examine the patient. I verified all carrasco points and agree with KWABENA Cohn with the following exceptions and/or additions: None Total Time Total Time Spent Total Time Spent (In Minutes): I spent a total of 50 minutes on the date of service in review of patient's record, and previously obtained information in person and appropriate medical visit, discussion and education of plan, with patient and/or caregiver, placing orders for tests/referral/procedures as medically necessary and documentation of pertinent clinical information in patient's medical records for their visit today. Coding Level of Care Code 34606 INP/OBS DISCH >30 MIN Diagnoses Ureterolithiasis N20.1 Acute renal failure N17.9 Acute renal failure type: unspecified Anaplasmosis A77.49 Prostate cancer C61 DM2 (diabetes mellitus, type 2) E11.9"
--- NOTE | 2025-04-22 15:10 | Coding Query ---
Your help is needed for correct coding of this account; please clarify if the patients Post-operative Ileus was: (X ) expected out of the surgery ( ) unexpected complication from the surgery ( )other please specify Thank you ANNABELLE Kirby CCS
== END 2025-04-21 17:14 | disposition home or self-care (01) | DRG 660 ==
LOC: ED 13:11 → EDINP 16:41 → SUATTDRO 16:41 → INTOOBSV 16:41 → 3N 19:03

== ENCOUNTER 2025-05-02 05:59 | Inpatient (IN) ==
[2025-05-02] MEDS ORDERED: MIDAZOLAM HCL 1 MG/ML 2ML VIAL ONE (07:03)
[2025-05-02] MEDS ORDERED: LIDOCAINE 2% 2 ML VIAL/AMP(20MG/ML) INFIL ONE ×3 (07:03→08:04)
[2025-05-02] MEDS ORDERED: PROPOFOL IV EMULSION 10 MG/ML 20 ML VIAL IV ONE (07:03)
[2025-05-02] MEDS ORDERED: DEXAMETHASONE SOD INJ 4 MG/ML VIAL ONE (07:03)
[2025-05-02] MEDS ORDERED: ONDANSETRON INJ 2 MG/ML 2 ML VIAL ONE (07:03)
[2025-05-02] MEDS ORDERED: ETOMIDATE 2 MG/ML 20 ML VIAL IV ONE (07:07)
[2025-05-02] MEDS ORDERED: ONDANSETRON INJ 2 MG/ML 2 ML VIAL IV PRN ×2 (07:11→10:54)
[2025-05-02] MEDS ORDERED: ATROPINE SULFATE 0.1 MG/ML 10ML SYR IV PRN (07:11)
--- NOTE | 2025-05-02 07:12 | Anesthesiology Consultation ---
Date of Service May 02, 2025 Assessment & Plan (1) Encounter for pre-operative examination: Chart Review Chart Review: Acceptable Risk for Surgery and Patient NOT seen in Pre Admission Testing Consults Requested none History Surgery Operation Date: 05/02/25 07:15 Proposed Procedures p Cystoscopy, Ureteronephroscopy, Retrograde Pyelogram, with Possible Ureteral Dilation, Laser Destruction or Extraction of the Stone, Insertion or Exchange of Stent Catheter - Right - Harsha William MD Height/Weight Height: 6 ft Weight: 83.5 kg Allergies Allergy/AdvReac Type Severity Reaction Status Date / Time No Known Allergies Allergy Unverified 05/02/25 07:03 Medications Home Medications Medication Instructions Recorded Confirmed Last Taken dextroamphetamine-amphetamine ER 40 mg PO DAILY 04/15/23 05/02/25 04/25/25 20 mg 24hr capsule,extend release (Adderall XR) dulaglutide 0.75 mg/0.5 mL 0.75 mg subcut WK 04/15/23 05/02/25 04/18/25 subcutaneous pen injector (Trulicity) escitalopram oxalate 20 mg tablet 20 mg PO DAILY 04/15/23 05/02/25 05/01/25 10:00 (Lexapro) lamotrigine 100 mg tablet 50 mg PO BID 04/15/23 05/02/25 05/01/25 20:00 (Lamictal) losartan 25 mg tablet 50 mg PO DAILY 04/15/23 05/02/25 05/01/25 08:00 metformin 1,000 mg tablet 1,000 mg PO BID 04/15/23 05/02/25 Unknown naltrexone 50 mg tablet 50 mg PO DAILY 04/15/23 05/02/25 04/11/25 rosuvastatin 20 mg tablet (Crestor) 20 mg PO DAILY 04/15/23 05/02/25 05/01/25 20:00 tadalafil 20 mg tablet (Cialis) 0 mg PO DAILY PRN Other 04/15/23 05/02/25 Unknown ondansetron 4 mg disintegrating 4 mg PO UD PRN n/v 04/15/25 05/02/25 04/28/25 tablet oxycodone 5 mg tablet 5 mg PO UD PRN Pain 04/15/25 05/02/25 04/30/25 tamsulosin 0.4 mg capsule 0.4 mg PO DAILY 04/15/25 05/02/25 04/30/25 pantoprazole 40 mg tablet,delayed 40 mg PO BID #60 tabs 04/21/25 05/02/25 05/01/25 20:00 release polyethylene glycol 3350 17 gram 17 g PO DAILY PRN constipation #30 04/21/25 05/02/25 04/29/25 oral powder packet (Miralax) ea NPO Date Last Intake of Fluids: 05/01/25 Time Last Intake of Fluids: 20:00 Date Last Intake of Solids: 04/30/25 Past Medical History Medical History Anaplasmosis Ureterolithiasis Prostate cancer Acute renal failure DM2 (diabetes mellitus, type 2) Thrombocytopenia Past Surgical History Surgical History Hx of colonoscopy History of prostate surgery Hx of hernia repair Hx of cystoscopy Social History Smoking Status: Never smoker Do You Dip or Chew Tobacco: No Hx Alcohol Use: Yes Alcohol type: beer alcohol intake frequency: a few times a month Hx Substance Use: No substance use type: does not use Physical Exam Vital Signs Last Vital Signs Temp 98.4 F 05/02/25 06:35 Pulse 105 H 05/02/25 06:35 Resp 18 05/02/25 06:35 BP 116/80 05/02/25 06:35 Pulse Ox 97 05/02/25 06:35 O2 Del Method Room Air 05/02/25 06:35 Testing Laboratory Results 05/02/25 06:24 POC Glucose 215 H
[2025-05-02] MEDS ORDERED: diphenhydrAMINE 50 MG/ML VIAL ONE (08:03)
--- NOTE | 2025-05-02 08:03 | History & Physical Report ---
Date of Service May 02, 2025 History of Present Illness Primary Care Provider: Evan Parsons 74M well known to service for management distal right ureteral stone did have stent placement with Dr. Manuel somewhat bothered by stent seems to be having back and flank pain also with unrelated complaints mainly weakness right leg and difficulty walking. Had some issues with urination had a catheter put in at an OSH. Is taking flomax. Risks and benefits of ureteroscopy with laser lithotripsy discussed with patient extensively. Understands low chance of UTI related to procedure somewhat unavoidable will optimize risk as possible and use antibiotics during case. Understands risk of ureteral injury either as consequence of stone trauma or related to procedure generally less than 10% chance of post procedure stricture depending on stone characteristics, understands may need stent and this can either be on string or maintained for longer duration for ureteral rest and require cystoscopy for removal. Understands stent colic can occur and be bothersome to varying degree depending on patient. Understands there is small risk that we may not be able to access the ureter and that we may need to stent for passive ureteral dilation or if we find evidence of active infection at which point we could not perform ureteroscopy safely. Benefits of procedure include preventing pain, reducing overall UTI risk, treating stones to prevent further stone episodes, optimizing renal drainage to protect renal function. Also discussed role for trial of passage with or without tamsulosin to dilate ureter. Understands success varies with stone size and duration/severity of symptoms. Patient elects to proceed with right ureteroscopy laser lithotripsy stent placement, will hopefully defer stent replacement with prior stenting depending on ureteral trauma Allergies Allergy/AdvReac Type Severity Reaction Status Date / Time No Known Allergies Allergy Unverified 05/02/25 07:03 Home Medications Medication Instructions Recorded Confirmed Type dextroamphetamine-amphetamine ER 40 mg PO DAILY 04/15/23 05/02/25 History 20 mg 24hr capsule,extend release (Adderall XR) dulaglutide 0.75 mg/0.5 mL 0.75 mg subcut WK 04/15/23 05/02/25 History subcutaneous pen injector (Trulicity) escitalopram oxalate 20 mg tablet 20 mg PO DAILY 04/15/23 05/02/25 History (Lexapro) lamotrigine 100 mg tablet 50 mg PO BID 04/15/23 05/02/25 History (Lamictal) losartan 25 mg tablet 50 mg PO DAILY 04/15/23 05/02/25 History metformin 1,000 mg tablet 1,000 mg PO BID 04/15/23 05/02/25 History naltrexone 50 mg tablet 50 mg PO DAILY 04/15/23 05/02/25 History rosuvastatin 20 mg tablet (Crestor) 20 mg PO DAILY 04/15/23 05/02/25 History tadalafil 20 mg tablet (Cialis) 0 mg PO DAILY PRN Other 04/15/23 05/02/25 History ondansetron 4 mg disintegrating 4 mg PO UD PRN n/v 04/15/25 05/02/25 History tablet oxycodone 5 mg tablet 5 mg PO UD PRN Pain 04/15/25 05/02/25 History tamsulosin 0.4 mg capsule 0.4 mg PO DAILY 04/15/25 05/02/25 History pantoprazole 40 mg tablet,delayed 40 mg PO BID #60 tabs 04/21/25 05/02/25 Rx release polyethylene glycol 3350 17 gram 17 g PO DAILY PRN constipation #30 04/21/25 05/02/25 Rx oral powder packet (Miralax) ea Past Med/Surg History Problem List Acute flank pain (Acute) Constipation Duodenal ulceration Abnormal CT scan, small bowel Encounter for pre-operative examination Right ureteral stone Lymphopenia (Acute) Hydronephrosis due to obstruction of ureter (Acute) Erectile dysfunction Medical History Anaplasmosis Ureterolithiasis Prostate cancer Acute renal failure DM2 (diabetes mellitus, type 2) Thrombocytopenia Surgical History Hx of colonoscopy History of prostate surgery Hx of hernia repair Hx of cystoscopy Social History Smoking Status: Never smoker Second Hand Exposure: No; Do You Dip or Chew Tobacco: No; Hx Alcohol Use: Yes Alcohol type: beer Hx Substance Use: No Preferred Language: Stateless Communication Ability: Effective Corner Former Required: No Beliefs That Will Affect Care: None Current Living Situation: Spouse Feels Safe at Home: Yes Safety Concerns: Feels Safe At This Time Assistive Devices: Glasses and Walker Results & Data Vital Signs (Past 12 Hours) Vital Signs Temp Pulse Resp BP Pulse Ox O2 Del Method 05/02/25 06:35 36.9 C 105 H 18 116/80 97 Room Air PG Care Time/CCT Total # of Minutes Spent Total Time Spent with Patient: Total time spent is greater than 50% in coordination of care (as documented) at patient's floor/unit and/or counseling patient: Coding Level of Care Code None
[2025-05-02] MEDS: cefTRIAXone SODIUM 2,000 MG/50 ML BAG IV STA (08:17)
[2025-05-02] MEDS ORDERED: PHENYLEPHRINE 100MCG/ML 5ML SYR ONE (08:23)
[2025-05-02] MEDS ORDERED: DexMEDEtomidine HCL IV 100 MCG/ML VIAL IV ONE (08:27)
[2025-05-02] MEDS ORDERED: SODIUM CHLORIDE 0.9% PF INJ 10 ML VIAL ONE ×3 (08:29→08:35)
[2025-05-02] MEDS ORDERED: VASOPRESSIN 20 UNIT/ML VIAL ONE (08:35)
[2025-05-02] MEDS ORDERED: ACETAMINOPHEN 1000 MG/100 ML IV IV ONE (08:43)
[2025-05-02] MEDS: DIATRIZOATE MEGLUMINE 30% 100ML VIAL INSTIL ONE (08:57)
--- NOTE | 2025-05-02 09:48 | Fluoroscopy Report ---
FL retrograde includes kub CLINICAL HISTORY: RIGHT COMPARISON STUDY: None FLUOROSCOPY TIME: 10 seconds FLUOROSCOPY IMAGES: 4 EXPOSURE DOSE: 2 mGy FINDINGS: Fluoroscopy was provided for urologic procedure. IMPRESSION: Intraoperative fluoroscopy. ACT 112: Negative or not required by law. Electronically signed by: Paul Barry M.D. 05/02/2025 9:47 AM
[2025-05-02 09:58] LABS: Hematocrit (blood only) 38.0 % (42.0-52.0); Hemoglobin 12.8 g/dl (14.0-18.0); Immature Granulocytes # (auto) 0.13 K/uL (0.01-0.20); Immature Granulocytes % (auto) 1.0 %; Mean Corpuscular Hemoglobin 29.0 pg (25.0-34.0); Mean Corpuscular Volume 86.0 fL (80.0-100.0); Platelet Count 282 K/uL (130-400); RDW Standard Deviation 39.4 fL (36.4-46.3); Red Blood Count 4.42 M/uL (4.70-6.10); White Blood Count 13.20 K/ul (4.8-10.8)
--- NOTE | 2025-05-02 10:08 | Anesthesiology Progress Note ---
Date of Service May 02, 2025 Anesthesia Post Procedure Vital Signs Vital Signs: Temp Pulse Pulse Resp BP Pulse Ox O2 Del Method 05/02/25 10:00 94 H 18 113/76 97 Room Air 05/02/25 09:45 97.7 F 92 H 18 130/85 98 Room Air 05/02/25 09:35 92 H 20 137/92 100 Room Air 05/02/25 09:25 93 H 22 141/93 H 100 Oxymask 05/02/25 09:17 98.6 F 91 H 20 138/86 100 Oxymask 05/02/25 06:35 98.4 F 105 H 18 116/80 97 Room Air O2 Flow Rate 05/02/25 10:00 05/02/25 09:45 05/02/25 09:35 05/02/25 09:25 3 05/02/25 09:17 6 05/02/25 06:35 Pain Intensity Back: Pain Intensity: 8 Bilateral Poon: Pain Intensity: 5 Transfer of Care Handoff Completed per policy Notes Mental Status: alert / awake / arousable and participated in evaluation Patient Amnestic to Procedure: Yes Nausea / Vomiting: adequately controlled Pain: adequately controlled Airway Patency, RR, SpO2: stable & adequate BP & HR: stable & adequate Hydration State: stable & adequate Anesthetic Complications: no major complications apparent and Pt Satisfied with anesthetic care
[2025-05-02 10:10] LABS: Anion Gap 9.0 (3-11); Blood Urea Nitrogen 14.0 mg/dl (6-23); Calcium 9.2 mg/dl (8.6-10.3); Carbon Dioxide 26.0 mmol/L (21-32); Chloride 98.0 mmol/L (98-107); Creatinine Clr Calc Pharmacy 71.9 ml/min; Glucose 223.0 mg/dl (70-99(Fasting)); Potassium 4.7 mmol/L (3.5-5.1); Sodium 133.0 mmol/L (136-145)
[2025-05-02] MEDS ORDERED: VANCOMYCIN HCL / NSS 1,000 MG/270 ML BAG IV SCH (10:54)
[2025-05-02] MEDS ORDERED: PHARMACY GLYCEMIC MGMT CONSULT PRN (10:54)
[2025-05-02] MEDS ORDERED: VANCOMYCIN CONSULT ACTIVE PRN (10:54)
[2025-05-02] MEDS ORDERED: DEXTROSE 50% 50 ML SYRINGE IV PRN (11:15)
[2025-05-02] MEDS ORDERED: GLUCOSE 10 TAB/TUBE PO PRN (11:15)
[2025-05-02] MEDS ORDERED: GLUCOSE 40% GEL 15 GM TUBE PO PRN (11:15)
[2025-05-02] MEDS ORDERED: CARBOHYDRATES FOR HYPOGLYCEMIA PO PRN (11:15)
[2025-05-02] MEDS ORDERED: GLUCAGON FOR INJ 1 MG VIAL SQ PRN (11:15)
--- NOTE | 2025-05-02 11:27 | Pharmacy Report ---
Pharmacy PK ABX Note - Date of Service May 02, 2025 - Assessment and Plan Assessment 74 year old M receiving vancomycin/zosyn postop - s/p urological procedure and was febrile postop. Provider wanting broad spectrum abx postop. Plan Vancomycin * Loading dose: 1750 mg IV x 1 * Maintenance dose: 1000 mg IV every 12 hours * Regimen is predicted to achieve target AUC/WINDY of 400-600 mg/L.hr * Plan to order vancomycin level if continued >48 hours Pharmacy will continue to follow and will adjust dose/frequency as necessary. Thank you. Pharmacy has transitioned to AUC monitoring for vancomycin. AUC/WINDY is the preferred PK/PD target and is associated with decreased risk of nephrotoxicity compared to traditional trough targets.
--- NOTE | 2025-05-02 11:29 | Pharmacy Report ---
Pharmacy Glycemic Short Note 2 - Date of Service May 02, 2025 - Glycemic Short BSG Results (Last 24 hours): 05/02/25 05/02/25 05/02/25 06:24 09:20 09:38 Glucose 223 H POC Glucose 215 H 215 H OUTPATIENT ANTIDIABETIC REGIMEN: * trulicity 0.75 mg SQ weekly, metformin 1 gm bid ASSESSMENT: * 74 year old s/p procedure, POD 0 - pharmacy consulted for glycemic management. Postop BSG >200 - patient did receive IV dexamethasone intraoperatively. Will give Lantus 20 units x 1 now to cover steroid effects. (~0.2 units/kg/dose). Will start novolog weight based dosing stress of 2/3 for now. Consider small Lantus dose for HS if BSGs remain >200. PLAN FOR INPATIENT GLYCEMIC CONTROL: * Hold outpatient oral diabetes medications * Basal insulin * Lantus 20 units x 1 now * Lantus 0-10 units HS if BSG >200 * Bolus insulin * NovoLog per scale ACHS or Q6hrs while NPO * Goal Range: Low 110 mg/dL - High 140 mg/dL * Correction Factor: 20 mg/dL/unit * Nutritional / Prandial insulin per carb ratio of 1 unit per 7 grams CHO consumed
[2025-05-02] MEDS: LACTATED RINGER'S 1,000 ML IV SCH (11:42)
[2025-05-02] MEDS: LANTUS PER UNIT CHARGE SC ONE (12:04)
[2025-05-02] MEDS: INSULIN ASPART PER UNIT CHARGE SC SCH (12:04)
--- NOTE | 2025-05-02 12:18 | Post Operative Brief Note ---
PG Immediate Post Op with CF Date of Surgery May 02, 2025 Pre & Post Diagnosis Operation Date: 05/02/25 07:15 Pre-Op Diagnosis: Distal right ureteral stone Post-Op Diagnosis: Distal right ureteral stone I identified the patient and participated in the time-out.: Yes Procedure Operation Date: 05/02/25 07:15 Actual Procedures p Cystoscopy, Right Retrograde Pyelogram, Laser Lithotripsy, Basket Retrival of Stone(Right) - Harsha William MD s Exchange of Stent Catheter,(Right) - Harsha William MD Surgeon Harsha William MD Driver Supervisor NA Estimated Blood Loss 0 Findings Consistent with Post-Op Diagnosis large right distal ureteral stone chipped to single large fragment then retrieved Specimens Specimen Description: A. Right ureteral stone for chemical analysis Drains Larsen Catheter (18fr coude exchanged by Dr. William)
--- NOTE | 2025-05-02 12:29 | Operative Report ---
PG Post Operative Report Pre & Post Diagnosis Operation Date: 05/02/25 07:15 Pre-Op Diagnosis: Distal right ureteral stone Post-Op Diagnosis: Distal right ureteral stone I identified the patient and participated in the time-out.: Yes Procedure Operation Date: 05/02/25 07:15 Actual Procedures p Cystoscopy, Right Retrograde Pyelogram, Laser Lithotripsy, Basket Retrival of Stone(Right) - Harsha William MD s Exchange of Stent Catheter,(Right) - Harsha William MD Surgeon Harsha William MD Manager Financial NA Estimated Blood Loss 0 Findings Consistent with Post-Op Diagnosis Specimens right ureteral stone Drains right 6 fr x 24 cm ureteral stent on string, 18 fr coude Complications low grade fever hypotension concerning for allergic reaction vs early sepsis Description of Procedure SURGEON: Dr. William TAX ATTORNEY: N/A PREOPERATIVE DIAGNOSIS: right ureteral stone POSTOPERATIVE DIAGNOSIS: Same PROCEDURE: cystoscopy, retrograde pyelogram, semi rigid ureteroscopy, laser lithotripsy, basket retrieval stone fragment, ureteral stent placement FINDINGS: 1. right ureteral stone right ureteral stent placed curls in renal pelvis and bladder secured to string ANESTHESIA: General ESTIMATED BLOOD LOSS: N/A TUBES AND DRAINS: right ureteral stent 6 fr x 24 cm SPECIMENS: none COMPLICATIONS: low grade fever hypotension requiring pressor support, concerning for allergic reaction vs early sepsis INDICATIONS FOR PROCEDURE: See preoperative diagnosis OPERATIVE DETAIL: The patient was prepped and draped in the usual fashion in the operating room. Antibiotics were given prior to starting the procedure. A well lubricated rigid cystoscope was inserted into the urethral meatus and advanced into the bladder. Care was taken to keep the lumen in the center of view. The prostate was enlarged with a prior false passage healing and irregular contour consistent with prior BPH procedure. Cystourethroscopy was completed and unremarkable aside from an indwelling right ureteral stent The left and right ureteral orifices were identified in the orthotopic positions. The stent was grasped and removed, a retrograde pyelogram was performmed notable for a distal filling defect and dilated ureter above this level. Contrast did not reach the renal pelvis. The cystoscope was removed and a semi rigid ureteroscope was introduced into the right ureter with minimal resistance without using pressure irrigation. A yellow crystalline stone was noted in the ureter and treated until a single large fragment remained using a 200 micron thulium laser fiber. This large fragment was retrieved carefully using a basket. A sensor wire was introduced with positioning confirmed on fluoroscopy. A 6 fr x 24 cm ureteral stent was then placed with positioning confirmed visually and fluoroscopically. The string was left attached and secured to the skin. All parts of the cystoscope and ureteroscope were removed intact from the patient. Please note thatI was present for and directly performed all components of the procedure. It should be noted that towards then end of the procedure I was informed by anesthesia that the patient was hypotensive and had a low grade fever. In this context minimal irrigation was used to limit intrarenal pressure and the single larger fragment was removed to allow maximal urinary drainage around the new ureteral stent. Antibiotics were then escalated to vancomycin and Zosyn in the event this was developing sepsis. I attest to the content of the Intraoperative Record and any orders documented therein. Any exceptions are noted below.
[2025-05-02] MEDS: VANCOMYCIN HCL 1,750 MG in SODIUM CHLORIDE 0.9% 500 ML IV ONE (12:42)
[2025-05-02 12:54] LABS: Appearance Urine Clear (Clear); Bacteria Urine Automated None Seen (None Seen); Epithelial Cell Urine Auto 0-2 /hpf (0-2); Glucose Urine UA Negative (Negative); RBC Urine Automated >20 /hpf (0-2); WBC Urine Automated 0-5 /hpf (0-5)
[2025-05-02 13:45] LABS: Chlamydia pneumoniae PCR Not Detected (NotDetected); Coronavirus 229E PCR Not Detected (NotDetected); Coronavirus CoV-2 (COVID19)PCR Not Detected (NotDetected); Coronavirus HKU1 PCR Not Detected (NotDetected); Coronavirus NL63 PCR Not Detected (NotDetected); Coronavirus OC43PCR Not Detected (NotDetected); Human Metapneumovirus PCR Not Detected (NotDetected); Parainfluenza Virus 1 PCR Not Detected (NotDetected); Parainfluenza Virus 2 PCR Not Detected (NotDetected); Parainfluenza Virus 3 PCR Not Detected (NotDetected); Parainfluenza Virus 4 PCR Not Detected (NotDetected); Respiratory Syncytial VirusPCR Not Detected (NotDetected); Rhinovirus/Enterovirus PCR Not Detected (NotDetected)
[2025-05-02] MEDS: PIPERACILLIN/TAZOBACTAM 4.5 GM/100 ML BAG IV ONE (14:00)
--- NOTE | 2025-05-02 14:20 | XRay Report ---
XR chest 2V PA/lateral CLINICAL HISTORY: low blood pressure, fever COMPARISON STUDY: None FINDINGS: Heart size and pulmonary vasculature are normal. No consolidation or pleural effusion. No p neumothorax. IMPRESSION: No acute findings. ACT 112: Negative or not required by law. Electronically signed by: Paul Barry M.D. 05/02/2025 2:19 PM
--- NOTE | 2025-05-02 17:52 | Hospitalist Consultation ---
Date of Consultation May 02, 2025 Assessment & Plan (1) Sepsis: (2) Urinary tract infection: (3) ADHD: (4) Bipolar disorder: (5) DM2 (diabetes mellitus, type 2): (6) Acute metabolic encephalopathy: (7) Severe protein-calorie malnutrition: Plan ##Sepsis/UTI in setting of anesthesia course with possible hypotension related to anesthesia medication administration, noted fever intraoperatively at 37.4 recording per PACU nurse, received approximately 1500ml of crystalloid IV fluid intraoperatively -admitted to med/surg per urology -LR @100ml/hr -empiric antibiotic coverage with Zosyn/Vanco -UA with 1+ leuks, will send for culture -CBC with leukocytosis (13.20) -lactate WNL -CRP 12.12 -procal normal -chest X-ray with no acute findings -Resp biofire negative -BC X 2 -fasting am cortisol -MRI of brain secondary to family complaints of hallucinations at home, intermittent confusion and weakness, confirm with patient and family rationale for Naltrexone prescription considering he has been received intermittent narcotic over the past 10+ days due to ureteral stone and potential SEs, per patient has had minimal narcotic since d/c from [facility] on 04/21 -secure records from [facility] for continuity ##T2DM -hold home Metformin -BSG ACHS with SSI coverage, pharmacy consult for long acting insulin dosing per urology request ##ADHD/Bipolar d/o -cont home Lexapro, dextroamphetamine, lamictal DVT prophylaxis: SCDs, low risk Diet: CC Disposition: home, PT/OT consult for eval Supervising Physician Co-Signing Physician Notes Attending Attestation and Consult Note: Pt seen/examined, chart reviewed, consult care plan d/w KWABENA Mike. I agree w/ the carrasco components of her consult documentation with the following additions - --acute metabolic encephalopathy --severe protein calorie malnutrition (recent weight loss of 20 pounds) 74yo male with recent hospitalization at [facility] from 04/15 to 04/21 for right sided ureteral kidney stone 7mm s/p stent placement, acute renal failure (peak Cr 2.49), anaplasmosis, ileus, and duodenal ulcers as seen on EGD. Following discharge he was admitted to [facility] in [place] in April for 2 days - details uncertain. He also has h/o DM, ADHD, bipolar disorder. Today he underwent cystoscopy, right retrograde pyelogram, laser lithotripsy, basket retrieval of stone and exchange of stent catheter on the right. During his intraoperative course it was noted per anesthesia that he became hypotensive. We were consulted post-op due to the hypotension and also concerns from his about recent confusion at home. PMH/PSH/allergies/meds/sochx - reviewed since the OR earlier today - VSS, afebrile, BPs now stable gen - lying in bed flat, NAD, slight confusion mouth - MM dry neck - no JVD heart - RRR, s1 s2, no murmur lungs - CTA b/l abd - soft ND NT BS+; no HSM; no peritoneal signs ext - no edema, pulses 2+ b/l feet psych - slight confusion A/P: 1. right sided kidney stone s/p ureteral sent in late March 2. s/p cystoscopy, laser litho of right-sided stone, exchange of right-sided ureteral stent - today 3. intra-op hypotension -- early sepsis? iatrogenic from anesthesia? adrenal crisis/adrenal insufficiency? volume depletion? combo of factors? 4. recent anaplasmosis 5. recent duodenal ulcers 6. severe protein calorie malnutrition 7. acute metabolic encephalopathy -agree with blood/urine cx's -check cortisol level -IV abx -IV fluids #7 - agree with MRI brain - r/o subacute CVA, etc #6 - consider phlebotomy technologist consult -of note - his Trulicity could be playing a role in ongoing weight loss as well in addition to all of the recent acute medical issues Markell Choi MD History of Present Illness Reason for Consultation: Medical management-->hypotension, febrile during intraoperative course Requesting Physician: Dr. Harsha William-urology Attending Physician: Harsah William MD History of Present Illness Patient is a 74-year-old male with past medical history significant for diabetes, acute renal failure, hyponatremia, ureterolithiasis/hydronephrosis, ADHD, bipolar disorder, and anaplasmosis. He underwent urological procedure this am for distal right ureteral stent with intervention of cystoscopy, right retrograde pyelogram, laser lithotripsy see, basket retrieval of stone and exchange of stent catheter on the right. During his intraoperative course it was noted per anesthesia that he became hypotensive and febrile during the case. He did receive fluid resuscitation of approximately 1500 mL of crystalloid. Urology empirically started him on IV Zosyn and vancomycin. He also was administered IV Benadryl intraoperatively as there was possible suspicion for allergic reaction perhaps to Ceftriaxone. Patient was recently discharged from [facility] on 04/21/2025 when he is hospitalized for ureterolithiasis, acute renal failure, anaplasmosis, ileus in the setting of postoperative period. At that time he underwent cystoscopy for right ureteral stone (7mm) with right stent insertion on 04/16/2025. He did not have laser lithotripsy or BSE at that time. Postoperatively he had complaints of left-sided flank pain where urology was recalled with normal renal ultrasound imaging. It was discovered he had anaplasmosis with thrombocytopenia and he finished a full course of Doxy. He also underwent an EGD due to possible referred pain from epigastric area as it was discovered on CTAP imaging he had possible duodenitis. Review of pathology from EGD confirms he does not have H. Pylori. He was diagnosed with a postoperative ileus and successfully had several BMs on the day of d/c. In the interim, he presented again to the ED at [facility] on 04/24/25 for bilateral flank pain and leg pain. Urology was consulted and patient was to follow up outpatient in anticipation of scheduling additional cystoscopy and intervention for his right sided kidney stone and intolerance of the right sided stent. After discussion with his this afternoon, she reports patient then followed up with his PCP on 04/28/25 and was transferred to [facility] as he didn't look well and was having weakness. He was admitted for 2 days and d/c'ed. She believes the patient had some form of abdominal imaging during his hospitalization but it is unclear his formal diagnosis. She states the patient has been having periods of hallucination at home since d/c from [facility] on 04/21/25 and over the course of the past week or so has become weaker with walking. The patient does endorse he has been weaker recently. His appetite has been poor and he appreciates a possible weight loss of approximately 15-20 lbs. He denies fever, chills, nausea or vomiting at home. He is talking PPT bid for duodenitis. Allergies Allergy/AdvReac Type Severity Reaction Status Date / Time No Known Allergies Allergy Unverified 05/02/25 07:03 Home Medications Medication Instructions Recorded Confirmed Type dextroamphetamine-amphetamine ER 40 mg PO DAILY 04/15/23 05/02/25 History 20 mg 24hr capsule,extend release (Adderall XR) dulaglutide 0.75 mg/0.5 mL 0.75 mg subcut WK 04/15/23 05/02/25 History subcutaneous pen injector (Trulicity) escitalopram oxalate 20 mg tablet 20 mg PO DAILY 04/15/23 05/02/25 History (Lexapro) lamotrigine 100 mg tablet 50 mg PO BID 04/15/23 05/02/25 History (Lamictal) losartan 25 mg tablet 50 mg PO DAILY 04/15/23 05/02/25 History metformin 1,000 mg tablet 1,000 mg PO BID 04/15/23 05/02/25 History naltrexone 50 mg tablet 50 mg PO DAILY 04/15/23 05/02/25 History rosuvastatin 20 mg tablet (Crestor) 20 mg PO DAILY 04/15/23 05/02/25 History tadalafil 20 mg tablet (Cialis) 0 mg PO DAILY PRN Other 04/15/23 05/02/25 History ondansetron 4 mg disintegrating 4 mg PO UD PRN n/v 04/15/25 05/02/25 History tablet oxycodone 5 mg tablet 5 mg PO UD PRN Pain 04/15/25 05/02/25 History tamsulosin 0.4 mg capsule 0.4 mg PO DAILY 04/15/25 05/02/25 History pantoprazole 40 mg tablet,delayed 40 mg PO BID #60 tabs 04/21/25 05/02/25 Rx release polyethylene glycol 3350 17 gram 17 g PO DAILY PRN constipation #30 04/21/25 05/02/25 Rx oral powder packet (Miralax) ea diclofenac sodium 1 % topical gel 4 g topical QID PRN pain #50 grams 05/05/25 Rx (Arthritis Pain (diclofenac)) nystatin 100,000 unit/mL oral 3 ml PO QID 7 days #84 mL 05/05/25 Rx suspension Patient History Medical History Anaplasmosis Ureterolithiasis Prostate cancer Acute renal failure DM2 (diabetes mellitus, type 2) Thrombocytopenia Surgical History Hx of colonoscopy History of prostate surgery Hx of hernia repair Hx of cystoscopy Social History Smoking Status: Never smoker Second Hand Exposure: No; Do You Dip or Chew Tobacco: No; Hx Alcohol Use: Yes Alcohol type: beer Hx Substance Use: No Preferred Language: Turkmen Communication Ability: Effective Tool And [employer]er Required: No Beliefs That Will Affect Care: None Current Living Situation: Spouse Feels Safe at Home: Yes Assistive Devices: None Review of Systems Review of Systems: All systems reviewed & are unremarkable except as noted in Subjective Physical Exam Physical Exam: GENERAL APPEARANCE: A&O. Sitting comfortably in bed. NAD. SKIN: Normal color without rashes or lesions. Normal turgor. HEENT: Head AT/NC. Buccal mucosa is dry. NECK: No jugular venous distention. No thyroid enlargement. There is no lymphadenopathy. HEART: RRR without m/g/r LUNGS: Normal inspiratory effort. CTA without w/r/r ABDOMEN: No guarding or rigidity. Normoactive BS in all four quadrants. Abdomen soft and NT. MSK: No bony gross/deformities throughout. ROM intact. EXTREMITIES: No edema, No peripheral cyanosis. Neuro: CN 2-12 grossly intact. No focal neuro deficits PSYCHIATRIC: Normal affect. Eye contact is good. Speech is normal rate and content. Responses are appropriate. Results & Data Results & Data Vital Signs (Past 12 Hours) Vital Signs Temp Pulse Pulse Resp BP Pulse Ox O2 Del Method 05/02/25 15:20 36.7 C 109 H 18 126/81 97 Room Air 05/02/25 14:15 36.8 C 93 H 16 103/65 96 Room Air 05/02/25 12:40 36.6 C 99 H 20 119/82 97 Room Air 05/02/25 12:10 36.5 C 94 H 18 119/74 96 Room Air 05/02/25 11:40 36.8 C 92 H 18 125/80 96 Room Air 05/02/25 11:30 96 H 20 138/90 97 Room Air 05/02/25 11:00 96 H 20 118/76 97 Room Air 05/02/25 10:45 97 H 20 124/86 97 Room Air 05/02/25 10:30 95 H 20 127/76 95 Room Air 05/02/25 10:15 97 H 20 120/79 95 Room Air 05/02/25 10:00 94 H 18 113/76 97 Room Air 05/02/25 09:45 36.5 C 92 H 18 130/85 98 Room Air 05/02/25 09:35 92 H 20 137/92 100 Room Air 05/02/25 09:25 93 H 22 141/93 H 100 Oxymask 05/02/25 09:17 37 C 91 H 20 138/86 100 Oxymask 05/02/25 06:35 36.9 C 105 H 18 116/80 97 Room Air O2 Flow Rate 05/02/25 15:20 05/02/25 14:15 05/02/25 12:40 05/02/25 12:10 05/02/25 11:40 05/02/25 11:30 05/02/25 11:00 05/02/25 10:45 05/02/25 10:30 05/02/25 10:15 05/02/25 10:00 05/02/25 09:45 05/02/25 09:35 05/02/25 09:25 3 05/02/25 09:17 6 05/02/25 06:35 PG Care Time/CCT Total # of Minutes Spent Total Time Spent with Patient: Total time spent is greater than 50% in coordination of care (as documented) at patient's floor/unit and/or counseling patient: Coding Level of Care Code 87987 IN/OBS CONSULT LVL 4,60M Diagnoses Sepsis A41.9 Urinary tract infection N39.0 ADHD F90.9 Bipolar disorder F31.9 DM2 (diabetes mellitus, type 2) E11.9 Acute metabolic encephalopathy G93.41 Severe protein-calorie malnutrition E43
[2025-05-02] MEDS: PIPERACILLIN/TAZOBACTAM 4.5 GM/100 ML BAG IV SCH (18:19)
--- NOTE | 2025-05-02 19:33 | Magnetic Resonance Report ---
Clinical History: Confusion Technique: Multiple T1 and T2-weighted magnetic resonance images were obtained of the brain without gadolinium contrast Findings: There is no sign of acute or old infarction with normal-appearing diffusion weighted images. No definite focus of demyelination is seen. No definite mass lesion is seen on this noncontrast study. There is no intracranial hemorrhage or other fluid collection. No midline shift or other form of herniation is seen. There is no hydrocephalus. Normal flow-voids are seen within the arteries of the [id number]. The orbits and paranasal sinuses appear normal. The mastoid air cells appear clear. Impression: Unremarkable noncontrast MRI of the brain Electronically signed by Feliberto Brown 05-02-2025 7:33 PM
[2025-05-02] MEDS: DOCUSATE SODIUM 100 MG CAP PO SCH (20:29)
[2025-05-02] MEDS: lamoTRIgine 25 MG TAB PO SCH (20:29)
[2025-05-02] MEDS: ACETAMINOPHEN 325 MG TAB PO PRN (20:33)
[2025-05-02] MEDS: LANTUS PER UNIT CHARGE SC SCH (20:52)
[2025-05-02] MEDS: NYSTATIN SUSP 500,000 U/5 ML UDC PO SCH (21:10)
[2025-05-02] MEDS: MAGNESIUM SULFATE / D5W 1 GM/100 ML BAG IV SCH (21:17)
[2025-05-03] MEDS: VANCOMYCIN HCL / NSS 1,000 MG/270 ML BAG IV SCH (00:07)
[2025-05-03] MEDS ORDERED: POLYETHYLENE (MIRALAX) 17 GM PACK PO PRN (02:30)
[2025-05-03 06:29] LABS: Hematocrit (blood only) 40.4 % (42.0-52.0); Hemoglobin 13.7 g/dL (14.0-18.0); Immature Granulocytes # (auto) 0.08 K/uL (0.01-0.20); Immature Granulocytes % (auto) 1.1 %; Mean Corpuscular Hemoglobin 29.4 pg (25.0-34.0); Mean Corpuscular Volume 86.7 fL (80.0-100.0); Platelet Count 281 K/uL (130-400); RDW Standard Deviation 39.7 fL (36.4-46.3); Red Blood Count 4.66 M/uL (4.70-6.10); White Blood Count 7.50 K/ul (4.8-10.8)
[2025-05-03 07:03] LABS: Anion Gap 6.0 (3-11); Blood Urea Nitrogen 21.0 mg/dl (6-23); Calcium 9.0 mg/dl (8.6-10.3); Carbon Dioxide 30.0 mmol/L (21-32); Chloride 102.0 mmol/L (98-107); Creatinine Clr Calc Pharmacy 59.6 ml/min; Glucose 167.0 mg/dl (70-99(Fasting)); Potassium 4.3 mmol/L (3.5-5.1); Sodium 138.0 mmol/L (136-145)
--- NOTE | 2025-05-03 08:01 | Pharmacy Report ---
Pharmacy PK ABX Note - Date of Service May 03, 2025 - Assessment and Plan Assessment 05/03: Current regimen predicting supratherapeutic per [facility], will empirically reduce dosing slightly, blood and urine cultures still pending. Level if continued beyond tomorrow. 74 year old M receiving vancomycin/zosyn postop - s/p urological procedure and was febrile postop. Provider wanting broad spectrum abx postop. Plan Vancomycin * Loading dose: 1750 mg IV x 1 * Maintenance dose: 1000 mg IV every 12 hours * Regimen is predicted to achieve target AUC/WINDY of 400-600 mg/L.hr * Plan to order vancomycin level if continued >48 hours Pharmacy will continue to follow and will adjust dose/frequency as necessary. Thank you. Pharmacy has transitioned to AUC monitoring for vancomycin. AUC/WINDY is the preferred PK/PD target and is associated with decreased risk of nephrotoxicity compared to traditional trough targets.
[2025-05-03] MEDS: NALTREXONE HCL 50 MG TAB PO SCH (08:10)
[2025-05-03] MEDS: LOSARTAN POTASSIUM 50 MG TAB PO SCH (08:11)
[2025-05-03] MEDS: ROSUVASTATIN CALCIUM 20 MG TAB PO SCH (08:11)
[2025-05-03] MEDS: ESCITALOPRAM OXALATE 20 MG TAB PO SCH (08:11)
[2025-05-03] MEDS: VANCOMYCIN 750 MG in SODIUM CHLORIDE 0.9% 250 ML IV SCH (11:03)
--- NOTE | 2025-05-03 11:17 | Pharmacy Report ---
Pharmacy Glycemic Short Note 2 - Date of Service May 03, 2025 - Glycemic Short BSG Results (Last 24 hours): 05/02/25 05/02/25 05/02/25 11:54 16:38 20:22 Glucose POC Glucose 212 H 241 H 109 H 05/03/25 05/03/25 06:08 07:27 Glucose 167 H POC Glucose 168 H OUTPATIENT ANTIDIABETIC REGIMEN: * trulicity 0.75 mg SQ weekly, metformin 1 gm bid ASSESSMENT: 05/03: * Pablo received 40 units of insulin yesterday (20 were basal) * Fasting BSG this AM acceptable, no ongoing steroids ordered at this time, will hold basal for now. * NovoLog loosened to a weight based stress of 2 due to weaning of hyperglycemic steroid effects and big decrease in BSG from dinner to bedtime yesterday evening. 05/02: * 74 year old s/p procedure, POD 0 - pharmacy consulted for glycemic management. Postop BSG >200 - patient did receive IV dexamethasone intraoperatively. Will give Lantus 20 units x 1 now to cover steroid effects. (~0.2 units/kg/dose). Will start novolog weight based dosing stress of 2/3 for now. Consider small Lantus dose for HS if BSGs remain >200. PLAN FOR INPATIENT GLYCEMIC CONTROL: * Hold outpatient oral diabetes medications * Basal insulin * hold * Bolus insulin * NovoLog per scale ACHS or Q6hrs while NPO * Goal Range: Low 110 mg/dL - High 140 mg/dL * Correction Factor: 30 mg/dL/unit * Nutritional / Prandial insulin per carb ratio of 1 unit per 9 grams CHO consumed
--- NOTE | 2025-05-03 12:47 | Urology Progress Note ---
<Statement entered by Harsha William MD - 05/04/25 08:05> Chart reviewed Patient assessed doing well with exception of leg weakness and reduced mobility, flank pain much improved will delineate plan for stent on string removal as planning for rehab crystallizes. Ideally would remove stent 4- 5 days after surgery, may be able to do this as early as tomorrow if patient feeling well and planned for transfer to rehab. plan reviewed and agree as written. Date of Service May 03, 2025 Assessment & Plan (1) Sepsis: (2) Urinary tract infection: Plan POD #1 s/p Cystoscopy, Right Retrograde Pyelogram, Laser Lithotripsy, Basket Retrieval of Stone, Exchange of Right Stent Catheter -Pt admitted postoperatively due to intraop fever/hypotension concerning for possible sepsis/UTI or reaction to anesthesia medication -Hospital medicine consulted, appreciate assistance -Remains afebrile, mildly hypertensive and tachycardic -Labs - WBCs 7.50, Hemoglobin 13.7, Creatinine 1.23 -Urine culture prelim no growth; Blood cultures pending -Empiric antibiotic coverage with Zosyn/Vanco -Larsen draining appropriately - urine is clear yellow Plan- -Remove Larsen catheter and monitor for void, bladder scan PRN -Continue antibiotic therapy -PT/OT evaluation -Discharge pending PT/OT evals and medicine recommendations Admission and Anticipated Discharge Date Admission Date: May 02, 2025 Subjective Patient seen at bedside this morning. Awake and resting in bed on arrival. No acute distress. Larsen draining clear yellow urine. Reports lower back pain. No abd or flank pain. No f/c/n/v. Reports BLE weakness. PT/OT to eval. Had MRI of brain yesterday secondary to concerns of confusion/weakness and was unremarkable. Review of Systems Constitutional: as per Subjective / HPI Genitourinary: + as per Subjective / HPI Physical Exam Constitutional: no acute distress Respiratory: no respiratory distress and no labored breathing Neurologic: moves all extremities and awake Psychiatric: Orientation: alert, oriented x 3 and cooperative Genitourinary: Larsen intact Results & Data Vital Signs (Past 12 Hours) Vital Signs Temp Pulse Resp BP Pulse Ox O2 Del Method 05/03/25 07:31 36.5 C 96 H 16 144/91 H 96 Room Air 05/03/25 04:06 36.4 C L 96 H 18 167/85 H 98 Room Air PG Care Time/CCT Total # of Minutes Spent Total Time Spent with Patient: Total time spent is greater than 50% in coordination of care (as documented) at patient's floor/unit and/or counseling patient: Coding Level of Care Code 53258 SUB INP/OBS CARE 2/35MIN Diagnoses Sepsis A41.9 Urinary tract infection N39.0
--- NOTE | 2025-05-03 12:52 | Infectious Disease Consult ---
Date of Consultation May 03, 2025 Assessment & Plan (1) Sepsis: (2) Right ureteral stone: Plan Problems: #Hypotension intraoperatively #Obstructing R distal ureteral stone s/p R ureteral stent (04/16/25) , s/p laser lithotripsy and R ureteral stent exchange (05/02/25) Micro: 05/02 UC: NG 05/02 BCx x2: pending 04/15 UCx: >100K Staph epi (oxa S) Abx: Vanc 05/02 - present Zosyn 05/02 - present Ceftriaxone 05/02 74 yo M with history of DM2, nephrolithiasis, recent hospitalization 04/15 04/21 for R sided flank pain found to have an obstructing stone in R distal ureter with hydronephrosis s/p R ureteral stent insertion (04/16/25). UCx grew >100K Staph epi. 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 Was treated with doxycycline for 10 day course. He then presented to the ED on 04/24 with bilateral flank pain, bilateral leg pain. He was afebrile with WBC 11.6, started to hallucinate. UA without signs of infection. Was given dilaudid and Zofran with relief. Discussed with urology who recommended pt to follow up as outpatient in anticipation of scheduling additional cystoscopy and intervention for R sided kidney stone and intolerance of stent. Pt followed up with his PCP on 04/28 and was transferred to [facility] as he did not look well and was having weakness and hallucinations. Unable to see records from [facility]. Pt presented to [facility] on 05/02 for cystoscopy, R retrograde pyelogram, laser lithotripsy, basket retrieval of stone, and R ureteral stent exchange. Was given ceftriaxone pre-operatively. During the procedure, he became hypotensive with temp up to 37.4. Was empirically started on vanc and Zosyn. Labs showed WBC 13.2. BCx NGTD. RVP negative. UA with 0-5 WBCs, UCx with no growth (obtained after 1 dose of ceftriaxone). CXR negative. MRI brain obtained due to hallucinations, was unremarkable. WBC has downtrended to 7.5 today. Has remained afebrile. Discussion: Hypotension and low grade temp during urologic procedure raises concern for sepsis from urinary source. However, UA with only 0-5 WBCs and UCx with no growth. BCx NGTD. Pt appears stable, clinically improved on vanc and Zosyn, with resolution of leukocytosis. Recommendations: - Follow-up blood cultures - Continue vanc and Zosyn for now Will continue to follow. Consultation Information This patient recommendation is based on a telemedicine consult request which was completed asynchronously through chart review and information provided by the primary physician. The patient was not seen or examined today. The evaluation is consultative in nature and all patient care and treatment decisions can either be accepted or rejected by the patient's primary hospital-based treating physician using their own independent medical judgment for their patient. Land Surveyor Manager contact information: Please call [facility] [phone]. (Phone Number For Physician Use Only) An e-consult was performed as telepresenter was not available Time Spent Reviewing Chart: 31+ minutes History of Present Illness Reason for Consultation: UTI, sepsis Attending Physician: Robert Christiansen History of Present Illness 74 yo M with history of DM2, nephrolithiasis, recent hospitalization 04/15 04/21 for R sided flank pain found to have an obstructing stone in R distal ureter with hydronephrosis s/p R ureteral stent insertion (04/16/25). UCx grew >100K Staph epi. 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 Was treated with doxycycline for 10 day course. He then presented to the ED on 04/24 with bilateral flank pain, bilateral leg pain. He was afebrile with WBC 11.6, started to hallucinate. UA without signs of infection. Was given dilaudid and Zofran with relief. Discussed with urology who recommended pt to follow up as outpatient in anticipation of scheduling additional cystoscopy and intervention for R sided kidney stone and intolerance of stent. Pt followed up with his PCP on 04/28 and was transferred to [facility] as he did not look well and was having weakness and hallucinations. Unable to see records from [facility]. Pt presented to [facility] on 05/02 for cystoscopy, R retrograde pyelogram, laser lithotripsy, basket retrieval of stone, and R ureteral stent exchange. Was given ceftriaxone pre-operatively. During the procedure, he became hypotensive with temp up to 37.4. Was empirically started on vanc and Zosyn. Labs showed WBC 13.2, UA with 0-5 WBCs. BCx NGTD. RVP negative. UCx pending. CXR negative. MRI brain obtained due to hallucinations, was unremarkable. WBC has downtrended to 7.5 today. Has remained afebrile. Allergies Allergy/AdvReac Type Severity Reaction Status Date / Time No Known Allergies Allergy Unverified 05/02/25 07:03 Home Medications Medication Instructions Recorded Confirmed Type dextroamphetamine-amphetamine ER 40 mg PO DAILY 04/15/23 05/02/25 History 20 mg 24hr capsule,extend release (Adderall XR) dulaglutide 0.75 mg/0.5 mL 0.75 mg subcut WK 04/15/23 05/02/25 History subcutaneous pen injector (Trulicity) escitalopram oxalate 20 mg tablet 20 mg PO DAILY 04/15/23 05/02/25 History (Lexapro) lamotrigine 100 mg tablet 50 mg PO BID 04/15/23 05/02/25 History (Lamictal) losartan 25 mg tablet 50 mg PO DAILY 04/15/23 05/02/25 History metformin 1,000 mg tablet 1,000 mg PO BID 04/15/23 05/02/25 History naltrexone 50 mg tablet 50 mg PO DAILY 04/15/23 05/02/25 History rosuvastatin 20 mg tablet (Crestor) 20 mg PO DAILY 04/15/23 05/02/25 History tadalafil 20 mg tablet (Cialis) 0 mg PO DAILY PRN Other 04/15/23 05/02/25 History ondansetron 4 mg disintegrating 4 mg PO UD PRN n/v 04/15/25 05/02/25 History tablet oxycodone 5 mg tablet 5 mg PO UD PRN Pain 04/15/25 05/02/25 History tamsulosin 0.4 mg capsule 0.4 mg PO DAILY 04/15/25 05/02/25 History pantoprazole 40 mg tablet,delayed 40 mg PO BID #60 tabs 04/21/25 05/02/25 Rx release polyethylene glycol 3350 17 gram 17 g PO DAILY PRN constipation #30 04/21/25 05/02/25 Rx oral powder packet (Miralax) ea Patient History Medical History Anaplasmosis Ureterolithiasis Prostate cancer Acute renal failure DM2 (diabetes mellitus, type 2) Thrombocytopenia Surgical History Hx of colonoscopy History of prostate surgery Hx of hernia repair Hx of cystoscopy Social History Smoking Status: Never smoker Second Hand Exposure: No; Do You Dip or Chew Tobacco: No; Hx Alcohol Use: Yes Alcohol type: beer Hx Substance Use: No Preferred Language: Yakut Communication Ability: Effective Numerical Control Nesting Operator Required: No Beliefs That Will Affect Care: None Current Living Situation: Spouse Feels Safe at Home: Yes Safety Concerns: Feels Safe At This Time Assistive Devices: None Results & Data Vital Signs (Past 12 Hours) Vital Signs Temp Pulse Resp BP Pulse Ox O2 Del Method 05/03/25 07:31 36.5 C 96 H 16 144/91 H 96 Room Air 05/03/25 04:06 36.4 C L 96 H 18 167/85 H 98 Room Air Laboratory Results Short CBC 05/03/25 Range/Units 06:08 WBC 7.50 (4.8-10.8) K/ul Hgb 13.7 L (14.0-18.0) g/dL Hct 40.4 L (42.0-52.0) % Plt Count 281 (130-400) K/uL BMP 05/03/25 06:08 Sodium 138 Potassium 4.3 Chloride 102 Carbon Dioxide 30 BUN 21 Creatinine 1.23 Glucose 167 H Calcium 9.0 Diagnostic Findings Retrograde Pyelogram 05/02/25 00:00 FL retrograde includes kub CLINICAL HISTORY: RIGHT COMPARISON STUDY: None FLUOROSCOPY TIME: 10 seconds FLUOROSCOPY IMAGES: 4 EXPOSURE DOSE: 2 mGy FINDINGS: Fluoroscopy was provided for urologic procedure. IMPRESSION: Intraoperative fluoroscopy. ACT 112: Negative or not required by law. Electronically signed by: Paul Barry M.D. 05/02/2025 9:47 AM Chest X-Ray 05/02/25 12:56 XR chest 2V PA/lateral CLINICAL HISTORY: low blood pressure, fever COMPARISON STUDY: None FINDINGS: Heart size and pulmonary vasculature are normal. No consolidation or pleural effusion. No pneumothorax. IMPRESSION: No acute findings. ACT 112: Negative or not required by law. Electronically signed by: Paul Barry M.D. 05/02/2025 2:19 PM Brain MRI 05/02/25 16:10 Clinical History: Confusion Technique: Multiple T1 and T2-weighted magnetic resonance images were obtained of the brain without gadolinium contrast Findings: There is no sign of acute or old infarction with normal-appearing diffusion weighted images. No definite focus of demyelination is seen. No definite mass lesion is seen on this noncontrast study. There is no intracranial hemorrhage or other fluid collection. No midline shift or other form of herniation is seen. There is no hydrocephalus. Normal flow-voids are seen within the arteries of the [id number]. The orbits and paranasal sinuses appear normal. The mastoid air cells appear clear. Impression: Unremarkable noncontrast MRI of the brain Electronically signed by Feliberto Brown 05-02-2025 7:33 PM Medications Administered Current Inpatient Medications Acetaminophen (Acetaminophen 325 Mg Tab) 650 mg PO Q6H PRN PRN Reason: Pain Stop: 06/01/25 10:53 Last Admin: 05/03/25 09:04 Dose: 650 mg Amphetamine/Dextroamphetamine (Dextroamphetamine/Amphetamine Er 20 Mg Cap) 40 mg PO DAILY JAN Stop: 05/17/25 08:59 Last Admin: 05/03/25 09:04 Dose: 40 mg Dextrose (Dextrose 50% 50 Ml Syringe) 25 - 50 ml IV UD PRN; Protocol PRN Reason: Hypoglycemia Protocol Stop: 06/01/25 11:14 Docusate Sodium (Docusate Sodium 100 Mg Cap) 100 mg PO BID JAN Stop: 06/01/25 20:59 Last Admin: 05/03/25 08:23 Dose: 100 mg Escitalopram Oxalate (Escitalopram Oxalate 20 Mg Tab) 20 mg PO DAILY JAN Stop: 06/02/25 08:59 Last Admin: 05/03/25 08:11 Dose: 20 mg Glucagon (Glucagon For Inj 1 Mg Vial) 1 mg SQ UD PRN; Protocol PRN Reason: Hypoglycemia Protocol Stop: 06/01/25 11:14 Glucose (Glucose 40% Gel 15 Gm Tube) 15 - 30 gm PO UD PRN; Protocol PRN Reason: Hypoglycemia Protocol Stop: 06/01/25 11:14 Glucose (Glucose 10 Tab/Tube) 4 - 8 tab PO UD PRN; Protocol PRN Reason: Hypoglycemia Protocol Stop: 06/01/25 11:14 Lactated Ringer's (Lr) 1,000 mls @ 100 mls/hr IV .Q10H [facility] Stop: 05/05/25 10:53 Last Admin: 05/03/25 07:48 Dose: 100 mls/hr Piperacillin Sod/Tazobactam Sod (Zosyn) 4.5 gm in 100 mls @ 25 mls/hr IV Q8H [facility]; Protocol Stop: 05/12/25 18:59 Last Admin: 05/03/25 11:01 Dose: 25 mls/hr Vancomycin HCl 750 mg/ Sodium (Chloride) 265 mls @ 200 mls/hr IV Q12H [facility] Stop: 05/13/25 11:59 Last Admin: 05/03/25 11:03 Dose: 200 mls/hr Insulin Aspart (Insulin Aspart Per Unit Charge) 0 units SC ACHS [facility] Stop: 06/01/25 11:29 Last Admin: 05/03/25 12:29 Dose: 3 units Lamotrigine (Lamotrigine 25 Mg Tab) 50 mg PO BID [facility]; Protocol Stop: 06/01/25 20:59 Last Admin: 05/03/25 08:11 Dose: 50 mg Losartan Potassium (Losartan Potassium 50 Mg Tab) 50 mg PO DAILY [facility] Stop: 06/02/25 08:59 Last Admin: 05/03/25 08:11 Dose: 50 mg Miscellaneous (Carbohydrates For Hypoglycemia ) 15 - 30 gm PO UD PRN PRN Reason: Hypoglycemia Treatment Stop: 06/01/25 11:14 Miscellaneous Information (Pharmacy Glycemic Mgmt Consult) 1 each N/A UD PRN; Protocol PRN Reason: Consult Stop: 06/01/25 10:53 Miscellaneous Information (Vancomycin Consult Active) 1 each N/A UD PRN PRN Reason: Consult Stop: 06/01/25 10:53 Naltrexone HCl (Naltrexone Hcl 50 Mg Tab) 50 mg PO DAILY [facility] Stop: 06/02/25 08:59 Last Admin: 05/03/25 08:10 Dose: 50 mg Nystatin (Nystatin Susp 500,000 U/5 Ml Ud) 5 ml PO QID [facility] Stop: 05/12/25 20:59 Last Admin: 05/03/25 08:10 Dose: 5 ml Ondansetron HCl (Ondansetron Inj 2 Mg/Ml 2 Ml Vial) 4 mg IV Q6H PRN PRN Reason: Nausea And Vomiting Stop: 06/01/25 10:53 Pantoprazole Sodium (Pantoprazole 40 Mg Tab) 40 mg PO BID [facility] Stop: 06/01/25 20:59 Last Admin: 05/03/25 08:11 Dose: 40 mg Polyethylene Glycol (Polyethylene (Miralax) 17 Gm Pack) 17 gm PO Q6H PRN PRN Reason: Constipation Stop: 06/02/25 02:29 Rosuvastatin Calcium (Rosuvastatin Calcium 20 Mg Tab) 20 mg PO DAILY [facility] Stop: 06/02/25 08:59 Last Admin: 05/03/25 08:11 Dose: 20 mg
--- NOTE | 2025-05-03 17:58 | Hospitalist Progress Note ---
Date of Service May 03, 2025 Assessment & Plan (1) Sepsis: (2) Urinary tract infection: (3) ADHD: (4) Bipolar disorder: (5) DM2 (diabetes mellitus, type 2): Plan ##Sepsis/UTI in setting of anesthesia course with possible hypotension related to anesthesia medication administration, noted fever intraoperatively at 37.4 recording per PACU nurse, received approximately 1500ml of crystalloid IV fluid intraoperatively -admitted to med/surg per urology -d/c IVF -empiric antibiotic coverage with Zosyn/Vanco -UA with 1+ leuks, UC with no growth -CBC resolved leukocytosis-->WBCs 13.20 to 7.50 -lactate WNL -CRP 12.12, 10.00 -procal normal -chest X-ray with no acute findings -Resp biofire negative -BC X 2-NGTD -fasting am cortisol normal -MRI of brain secondary to family complaints of hallucinations at home, intermittent confusion and weakness, confirm with patient and family rationale for Naltrexone prescription considering he has been received intermittent narcotic over the past 10+ days due to ureteral stone and potential SEs, per patient has had minimal narcotic since d/c from [facility] on 04/21-->>confirmed taking Naltrexone prescription for pornography addiction -secure records from [facility] for continuity -ID consult ##T2DM -hold home Metformin -BSG ACHS with SSI coverage, pharmacy consult for long acting insulin dosing per urology request ##ADHD/Bipolar d/o -cont home Lexapro, dextroamphetamine, lamictal ##Weight loss over 2 week period -see subjective -in setting of diagnosed duodenal ulcerations without H.Pylori (on PPI BID) -dietary consult DVT prophylaxis: SCDs, low risk Diet: CC Disposition: home, PT/OT consult for eval Admission and Anticipated Discharge Date Admission Date: May 02, 2025 Subjective Patient seen in room this am. Alert and oriented times three with no active hallucinations-->>nursing reported upon arrival to room yesterday patient was confused and could not remember where he was at and was seeing bugs crawling. Reports some mid-lower back discomfort that is reproducible with movement. States this has been ongoing over the past couple of weeks. He has strong motor strength present in his bilateral lower ext and feet. Was using walker at home to help and support himself prior to admission yesterday. States he hasn't had much of an appetite since he was discharged from hospital at the end of March. He was diagnosed with duodenal ulcerations as he had an EGD per GI with last admission. Has been taking PPI BID. Total weight loss documented: 04/21/25 92.17kg>05/03/25 83.5kg. States appetite has been good today. Review of Systems Review of Systems: All systems reviewed & are unremarkable except as noted in Subjective Physical Exam Physical Exam: GENERAL APPEARANCE: A&O. Sitting comfortably in chair. NAD. SKIN: Normal color without rashes or lesions. Normal turgor. HEENT: Head AT/NC. Buccal mucosa is dry. NECK: No jugular venous distention. No thyroid enlargement. There is no lymphadenopathy. HEART: RRR without m/g/r LUNGS: Normal inspiratory effort. CTA without w/r/r. ABDOMEN: No guarding or rigidity. Normoactive BS in all four quadrants. Abdomen soft and NT. MSK: No bony gross/deformities throughout. ROM intact. EXTREMITIES: No edema, No peripheral cyanosis. Neuro: CN 2-12 grossly intact. No focal neuro deficits PSYCHIATRIC: Normal affect. Eye contact is good. Speech is normal rate and content. Responses are appropriate. Results & Data Results & Data Vital Signs (Past 12 Hours) Vital Signs Temp Pulse Resp BP Pulse Ox O2 Del Method 05/03/25 14:55 36.4 C L 81 18 133/83 98 Room Air 05/03/25 07:31 36.5 C 96 H 16 144/91 H 96 Room Air Laboratory Results Labs reviewed: CBC, CMP, CRP PG Care Time/CCT Total # of Minutes Spent Total Time Spent with Patient: Total time spent is greater than 50% in coordination of care (as documented) at patient's floor/unit and/or counseling patient: Coding Level of Care Code 42176 SUB INP/OBS CARE 2/35MIN Diagnoses Sepsis A41.9 Urinary tract infection N39.0 ADHD F90.9 Bipolar disorder F31.9 DM2 (diabetes mellitus, type 2) E11.9
[2025-05-03] MEDS: MAGNESIUM SULFATE / D5W 1 GM/100 ML BAG IV SCH (23:03)
[2025-05-04 06:57] LABS: Hematocrit (blood only) 38.9 % (42.0-52.0); Hemoglobin 13.2 g/dL (14.0-18.0); Immature Granulocytes # (auto) 0.09 K/uL (0.01-0.20); Immature Granulocytes % (auto) 1.5 %; Mean Corpuscular Hemoglobin 29.5 pg (25.0-34.0); Mean Corpuscular Volume 86.8 fL (80.0-100.0); Platelet Count 276 K/uL (130-400); RDW Standard Deviation 39.6 fL (36.4-46.3); Red Blood Count 4.48 M/uL (4.70-6.10); White Blood Count 5.94 K/ul (4.8-10.8)
[2025-05-04 07:09] LABS: Anion Gap 6.0 (3-11); Blood Urea Nitrogen 12.0 mg/dl (6-23); Calcium 9.0 mg/dl (8.6-10.3); Carbon Dioxide 31.0 mmol/L (21-32); Chloride 102.0 mmol/L (98-107); Creatinine Clr Calc Pharmacy 65.4 ml/min; Glucose 165.0 mg/dl (70-99(Fasting)); Potassium 4.1 mmol/L (3.5-5.1); Sodium 139.0 mmol/L (136-145)
--- NOTE | 2025-05-04 08:51 | Urology Progress Note ---
<Statement entered by Harsha William MD - 05/04/25 12:14> Chart reviewed plan reviewed and agree as written. Date of Service May 04, 2025 Assessment & Plan (1) Sepsis: (2) Urinary tract infection: Plan POD #2 s/p Cystoscopy, Right Retrograde Pyelogram, Laser Lithotripsy, Basket Retrieval of Stone, Exchange of Right Stent Catheter -Pt admitted postoperatively due to intraop fever/hypotension concerning for possible sepsis/UTI or reaction to anesthesia medication -Hospital medicine consulted, appreciate assistance -Feeling well today, still with c/o back and LE pain/weakness -Tolerating the stent with minimal bother -Remains afebrile, mildly hypertensive but otherwise stable -Labs - WBCs 5.94, Hemoglobin 13.2, Creatinine 1.12 -Urine and blood cultures prelim no growth -Continues on empiric antibiotic coverage with Zosyn/Vanco, ID following -Voiding spontaneously following catheter removal yesterday -PT eval yesterday and recommends rehab -D/c pending rehab placement and hospital medicine recommendations -Tethered stent removal pending discharge plans Admission and Anticipated Discharge Date Admission Date: May 02, 2025 Subjective Patient seen at bedside today. Awake and sitting in bedside chair. NAD. Has been voiding without issue following catheter removal. Tethered stent in place. No f/c/n/v. Still with c/o of back and LE pain/weakness. Review of Systems Constitutional: as per Subjective / HPI Genitourinary: + as per Subjective / HPI Physical Exam Constitutional: no acute distress Respiratory: no respiratory distress and no labored breathing Neurologic: moves all extremities and awake Psychiatric: A+Ox3, euthymic affect Results & Data Vital Signs (Past 12 Hours) Vital Signs Temp Pulse Resp BP Pulse Ox O2 Del Method 05/04/25 07:44 36.6 C 83 16 143/94 H 97 Room Air 05/03/25 23:32 36.5 C 84 16 139/79 99 Room Air PG Care Time/CCT Total # of Minutes Spent Total Time Spent with Patient: Total time spent is greater than 50% in coordination of care (as documented) at patient's floor/unit and/or counseling patient: Coding Level of Care Code 00221 SUB INP/OBS CARE 2/35MIN Diagnoses Sepsis A41.9 Urinary tract infection N39.0
--- NOTE | 2025-05-04 14:28 | Hospitalist Progress Note ---
Date of Service May 04, 2025 Assessment & Plan (1) Sepsis: (2) Urinary tract infection: (3) ADHD: (4) Bipolar disorder: (5) DM2 (diabetes mellitus, type 2): Plan ##Sepsis/UTI in setting of anesthesia course with possible hypotension related to anesthesia medication administration, noted fever intraoperatively at 37.4 recording per PACU nurse, received approximately 1500ml of crystalloid IV fluid intraoperatively -admitted to med/surg per urology -empiric antibiotic coverage with Zosyn/Vanco -UA with 1+ leuks, UC with no growth -CBC resolved leukocytosis-->WBCs 13.20, 5.94 -lactate WNL -CRP 12.12, 10.00 -procal normal -chest X-ray with no acute findings -Resp biofire negative -BC X 2-NGTD -fasting am cortisol normal -MRI of brain secondary to family complaints of hallucinations at home, intermittent confusion and weakness, confirm with patient and family rationale for Naltrexone prescription considering he has been received intermittent narcotic over the past 10+ days due to ureteral stone and potential SEs, per patient has had minimal narcotic since d/c from [facility] on 04/21-->>confirmed taking Naltrexone prescription for pornography addiction -secure records from [facility] for continuity -ID consult with rec-Discontinuation of vanc, continue Zosyn for now, if continued clinical improvement, can transition to cefuroxime 500 mg PO BID through 05/08 to complete total 7 day course of antibiotics ##T2DM -hold home Metformin -BSG ACHS with SSI coverage ##ADHD/Bipolar d/o -cont home Lexapro, dextroamphetamine, lamictal ##Weight loss over 2 week period -appetite improving -in setting of diagnosed duodenal ulcerations without H.Pylori (on PPI BID) -dietary consult with re for nightly boost ##sacroiliitis -cont PT, Lidocaine patch PRN, Voltaren gel PRN DVT prophylaxis: SCDs, low risk Diet: CC Disposition: home, patient requesting home health PT Admission and Anticipated Discharge Date Admission Date: May 02, 2025 Subjective Patient sitting up in bed this am. Still with c/o left sided lumbar pain that is localized without lower ext. weakness or radiculopathy associated symptoms. He is mentally clear this am and completely oriented times 4. Appetite has been improving. Seen by dietary yesterday with suggestion to add Boost to diet. He states his appetite prior to last hospitalization hadn't been great and he had anorexia so he believes his duodenal ulcer had been present for some time. Participated with PT and walked significant distance with walker. States he would prefer to go home with PT as he needs strengthening and conditioning. Review of Systems Review of Systems: All systems reviewed & are unremarkable except as noted in Subjective Physical Exam Physical Exam: GENERAL APPEARANCE: A&O. Sitting comfortably in chair. NAD. SKIN: Normal color without rashes or lesions. Normal turgor. HEENT: Head AT/NC. Buccal mucosa is dry. NECK: No jugular venous distention. No thyroid enlargement. There is no lymphadenopathy. HEART: RRR without m/g/r LUNGS: Normal inspiratory effort. CTA without w/r/r. ABDOMEN: No guarding or rigidity. Normoactive BS in all four quadrants. Abdomen soft and NT. No CVA tenderness MSK: No bony gross/deformities throughout. ROM intact. TTP to left SI joint with reproducible pain with flexion of lumbar area. EXTREMITIES: No edema, No peripheral cyanosis. Neuro: CN 2-12 grossly intact. No focal neuro deficits PSYCHIATRIC: Normal affect. Eye contact is good. Speech is normal rate and content. Responses are appropriate. Results & Data Results & Data Vital Signs (Past 12 Hours) Vital Signs Temp Pulse Resp BP Pulse Ox O2 Del Method 05/04/25 07:44 36.6 C 83 16 143/94 H 97 Room Air 05/04/25 07:30 Room Air Laboratory Results Labs reviewed: CBC, BMP PG Care Time/CCT Total # of Minutes Spent Total Time Spent with Patient: Total time spent is greater than 50% in coordination of care (as documented) at patient's floor/unit and/or counseling patient: Coding Level of Care Code 48219 SUB INP/OBS CARE 2/35MIN Diagnoses Sepsis A41.9 Urinary tract infection N39.0 ADHD F90.9 Bipolar disorder F31.9 DM2 (diabetes mellitus, type 2) E11.9
--- NOTE | 2025-05-04 14:52 | Infectious Disease Progress Nt ---
Date of Service May 04, 2025 Assessment & Plan (1) Sepsis: (2) Right ureteral stone: Plan Problems: #Hypotension intraoperatively: ? sepsis vs reaction to anesthesia med #Obstructing R distal ureteral stone s/p R ureteral stent (04/16/25) , s/p laser lithotripsy and R ureteral stent exchange (05/02/25) Micro: 05/02 UC: NG 05/02 BCx x2: NGTD 04/15 UCx: >100K Staph epi (oxa S) Abx: Vanc 05/02 - present Zosyn 05/02 - present Ceftriaxone 05/02 74 yo M with history of DM2, nephrolithiasis, recent hospitalization 04/15 04/21 for R sided flank pain found to have an obstructing stone in R distal ureter with hydronephrosis s/p R ureteral stent insertion (04/16/25). UCx grew >100K Staph epi. 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 Was treated with doxycycline for 10 day course. He then presented to the ED on 04/24 with bilateral flank pain, bilateral leg pain. He was afebrile with WBC 11.6, started to hallucinate. UA without signs of infection. Was given dilaudid and Zofran with relief. Discussed with urology who recommended pt to follow up as outpatient in anticipation of scheduling additional cystoscopy and intervention for R sided kidney stone and intolerance of stent. Pt followed up with his PCP on 04/28 and was transferred to [facility] as he did not look well and was having weakness and hallucinations. Unable to see records from [facility]. Pt presented to [facility] on 05/02 for cystoscopy, R retrograde pyelogram, laser lithotripsy, basket retrieval of stone, and R ureteral stent exchange. Was given ceftriaxone pre-operatively. During the procedure, he became hypotensive with temp up to 37.4. Was empirically started on vanc and Zosyn. Labs showed WBC 13.2. BCx NGTD. RVP negative. UA with 0-5 WBCs, UCx with no growth (obtained after 1 dose of ceftriaxone). CXR negative. MRI brain obtained due to hallucinations, was unremarkable. WBC has downtrended to 7.5 05/03. Has remained afebrile. Discussion: Hypotension and low grade temp during urologic procedure raises concern for sepsis from urinary source. However, UA with only 0-5 WBCs and UCx with no growth. BCx NGTD. Pt appears stable, clinically improved on vanc and Zosyn, with resolution of leukocytosis. Unclear if the hypotension intra-op was related to infection, but in the setting of urologic procedure and ureteral stent exchange, will opt to treat for possible urosepsis. Recommendations: - Discontinued vanc - Can continue Zosyn for now. If continued clinical improvement, can transition to cefuroxime 500 mg PO BID through 05/08 to complete total 7 day course of antibiotics Will sign off. Admission and Anticipated Discharge Date Admission Date: May 02, 2025 Subjective This patient recommendation is based on a telemedicine consult request which was completed asynchronously through chart review and information provided by the primary physician. The patient was not seen or examined today. The evaluation is consultative in nature and all patient care and treatment decisions can either be accepted or rejected by the patient's primary hospital-based treating physician using their own independent medical judgment for their patient. Time Spent Reviewing Chart: 11 - 20 minutes Afebrile without leukocytosis BCx NGTD Results & Data Vital Signs (Past 12 Hours) Vital Signs Temp Pulse Resp BP Pulse Ox O2 Del Method 05/04/25 07:44 36.6 C 83 16 143/94 H 97 Room Air 05/04/25 07:30 Room Air
[2025-05-04] MEDS: DICLOFENAC SOD 1% GEL 100 GM TUBE EXT PRN (16:05)
[2025-05-04] MEDS: LIDOCAINE 5% 1 PATCH TD SCH (16:05)
[2025-05-04] MEDS: REMOVE LIDODERM PATCH SCH (20:56)
[2025-05-04] MEDS: TAMSULOSIN HCL 0.4 MG CAP PO SCH (20:56)
[2025-05-05 06:41] LABS: Hematocrit (blood only) 39.8 % (42.0-52.0); Hemoglobin 13.8 g/dL (14.0-18.0); Immature Granulocytes # (auto) 0.07 K/uL (0.01-0.20); Immature Granulocytes % (auto) 1.1 %; Mean Corpuscular Hemoglobin 29.6 pg (25.0-34.0); Mean Corpuscular Volume 85.2 fL (80.0-100.0); Platelet Count 276 K/uL (130-400); RDW Standard Deviation 38.2 fL (36.4-46.3); Red Blood Count 4.67 M/uL (4.70-6.10); White Blood Count 6.13 K/ul (4.8-10.8)
[2025-05-05 06:57] LABS: Anion Gap 9.0 (3-11); Blood Urea Nitrogen 14.0 mg/dl (6-23); Calcium 9.3 mg/dl (8.6-10.3); Carbon Dioxide 26.0 mmol/L (21-32); Chloride 102.0 mmol/L (98-107); Creatinine Clr Calc Pharmacy 69.1 ml/min; Glucose 191.0 mg/dl (70-99(Fasting)); Potassium 4.1 mmol/L (3.5-5.1); Sodium 137.0 mmol/L (136-145)
--- NOTE | 2025-05-05 11:18 | Urology Progress Note ---
Date of Service May 05, 2025 Assessment & Plan (1) Sepsis: (2) Urinary tract infection: Plan POD #3 s/p Cystoscopy, Right Retrograde Pyelogram, Laser Lithotripsy, Basket Retrieval of Stone, Exchange of Right Stent Catheter -Pt admitted postoperatively due to intraop fever/hypotension concerning for possible sepsis/UTI or reaction to anesthesia medication -Hospital medicine consulted, appreciate assistance -Remains afebrile and hemodynamically stable -Labs -no leukocytosis and normal renal function -Urine culture negative; blood cultures no growth x 48 hours -Continues on empiric antibiotic coverage with Zosyn -Voiding without issue -Tethered stent removed at bedside without issue, patient tolerated well -Discussed with hospitalistaide for discharge from their perspective -Plan for discharge home with home health for PT/OT/nursing care -Will send with antibiotics per ID recommendations -Will arrange outpatient follow-up with urology service -Patient agreeable to plan, all questions were answered Admission and Anticipated Discharge Date Admission Date: May 02, 2025 Subjective Patient seen at bedside this morning. Awake and sitting in bedside chair. No acute distress. Feeling well. Denies fever, chills, nausea, vomiting. Voiding without issue. Denies hematuria or dysuria. No c/o pain at present. Plan is for home today with home health. Review of Systems Constitutional: as per Subjective / HPI Genitourinary: + as per Subjective / HPI Physical Exam Constitutional: no acute distress Respiratory: no respiratory distress and no labored breathing Neurologic: moves all extremities and awake Psychiatric: A+Ox3, euthymic affect Results & Data Vital Signs (Past 12 Hours) Vital Signs Temp Pulse Pulse Resp BP Pulse Ox O2 Del Method 05/05/25 07:51 36.6 C 67 63 16 118/73 98 Room Air PG Care Time/CCT Total # of Minutes Spent Total Time Spent with Patient: Total time spent is greater than 50% in coordination of care (as documented) at patient's floor/unit and/or counseling patient: Coding Level of Care Code 87415 SUB INP/OBS CARE 2/35MIN Diagnoses Sepsis A41.9 Urinary tract infection N39.0
[2025-05-05 11:19] VITALS: BP 116/62; PULSE 70; RESP 14; TEMP 98.4; O2SAT 97
--- NOTE | 2025-05-05 13:16 | Pharmacy Report ---
Pharmacy Glycemic Short Note 2 - Date of Service May 05, 2025 - Glycemic Short BSG Results (Last 24 hours): 05/04/25 05/04/25 05/05/25 16:28 20:49 06:02 Glucose 191 H POC Glucose 124 H 160 H 05/05/25 05/05/25 07:34 11:48 Glucose POC Glucose 172 H 234 H OUTPATIENT ANTIDIABETIC REGIMEN: * trulicity 0.75 mg SQ weekly, metformin 1 gm bid ASSESSMENT: 05/05: * Patient received total of 21 units of insulin yesterday, BSGs in range * Fasting BSG trending upward 172 mg/dL - will add on low dose basal * Tightened CF/CR at lunch time check 05/03: * Pablo received 40 units of insulin yesterday (20 were basal) * Fasting BSG this AM acceptable, no ongoing steroids ordered at this time, will hold basal for now. * NovoLog loosened to a weight based stress of 2 due to weaning of hyperglycemic steroid effects and big decrease in BSG from dinner to bedtime yesterday evening. 05/02: * 74 year old s/p procedure, POD 0 - pharmacy consulted for glycemic management. Postop BSG >200 - patient did receive IV dexamethasone intraoperatively. Will give Lantus 20 units x 1 now to cover steroid effects. (~0.2 units/kg/dose). Will start novolog weight based dosing stress of 2/3 for now. Consider small Lantus dose for HS if BSGs remain >200. PLAN FOR INPATIENT GLYCEMIC CONTROL: * Hold outpatient oral diabetes medications * Basal insulin * Lantus 8 units once daily * Bolus insulin * NovoLog per scale ACHS or Q6hrs while NPO * Goal Range: Low 110 mg/dL - High 140 mg/dL * Correction Factor: 25 mg/dL/unit * Nutritional / Prandial insulin per carb ratio of 1 unit per 7 grams CHO consumed
--- NOTE | 2025-05-05 16:08 | Hospitalist Progress Note ---
Date of Service May 05, 2025 Assessment & Plan (1) Sepsis: (2) Urinary tract infection: (3) ADHD: (4) Bipolar disorder: (5) DM2 (diabetes mellitus, type 2): Plan ##Sepsis/UTI in setting of anesthesia course with possible hypotension related to anesthesia medication administration, noted fever intraoperatively at 37.4 recording per PACU nurse, received approximately 1500ml of crystalloid IV fluid intraoperatively -admitted to med/surg per urology -empiric antibiotic coverage with Zosyn/Vanco -UA with 1+ leuks, UC with no growth -CBC resolved leukocytosis-->WBCs 13.20, 7.50, 5.94, 6.13 -lactate WNL -CRP 12.12, 10.00 -procal normal -chest X-ray with no acute findings -Resp biofire negative -BC X 2-NGTD -fasting am cortisol normal -MRI of brain secondary to family complaints of hallucinations at home, intermittent confusion and weakness, confirm with patient and family rationale for Naltrexone prescription considering he has been received intermittent narcotic over the past 10+ days due to ureteral stone and potential SEs, per patient has had minimal narcotic since d/c from [facility] on 04/21-->>confirmed taking Naltrexone prescription for pornography addiction -secure records from [facility] for continuity -ID consult with rec-Discontinuation of vanc, continue Zosyn, patient bridged with Cefuroxime for d/c -ureteral stent discontinued per urology ##T2DM -cont Metformin on d/c as -BSG ACHS with SSI coverage ##ADHD/Bipolar d/o -cont home Lexapro, dextroamphetamine, lamictal ##Weight loss over 2 week period -appetite improving -in setting of diagnosed duodenal ulcerations without H.Pylori (on PPI BID), identified thrush per Dr. Watters on admission consultation service with initiation of Nystatin, will cont on d/c and possible contributing factor f/t poor appetite at home -d/c with recommendation for nightly boost -to f/u with PCP to monitor weight on d/c ##sacroiliitis -home health PT and Voltaren prn on d/c Disposition: home with homehealth PT, f/u with [facility], [facility] and [facility]CP Admission and Anticipated Discharge Date Admission Date: May 02, 2025 Subjective Patient sitting up this am. States he worked with physical therapy this am and had no c/o left sided back pain as the Voltaren and Lidocaine patch have been effective in treating left sided SI joint pain. Appetite has returned and is favorable. Ate well last evening and all of his breakfast this am. Has no complaints today and is agreeable to following up with homehealth PT. Patient stable for d/c as he has been without fever, chills, disorientation and control of left sided SI joint discomfort with pain medication modalities implemented. He has had no hallucinations. He has voided post discontinuation of Larsen catheter. Review of Systems Review of Systems: All systems reviewed & are unremarkable except as noted in Subjective Physical Exam Physical Exam: GENERAL APPEARANCE: A&O. Sitting comfortably in chair. NAD. SKIN: Normal color without rashes or lesions. Normal turgor. HEENT: Head AT/NC. Buccal mucosa is dry. NECK: No jugular venous distention. No thyroid enlargement. There is no lymphadenopathy. HEART: RRR without m/g/r LUNGS: Normal inspiratory effort. CTA without w/r/r. ABDOMEN: No guarding or rigidity. Normoactive BS in all four quadrants. Abdomen soft and NT. No CVA tenderness MSK: No bony gross/deformities throughout. ROM intact. EXTREMITIES: No edema, No peripheral cyanosis. Neuro: CN 2-12 grossly intact. No focal neuro deficits PSYCHIATRIC: Normal affect. Eye contact is good. Speech is normal rate and content. Responses are appropriate. Results & Data Results & Data Vital Signs (Past 12 Hours) Vital Signs Temp Pulse Pulse Pulse Resp BP BP 05/05/25 13:13 36.9 C 70 63 66 14 118/73 116/62 05/05/25 11:14 36.9 C 70 66 14 116/62 05/05/25 07:51 36.6 C 67 63 16 118/73 05/05/25 07:20 Pulse Ox O2 Del Method 05/05/25 13:13 97 05/05/25 11:14 97 Room Air 05/05/25 07:51 98 Room Air 05/05/25 07:20 Room Air Laboratory Results Labs reviewed: CBC, BMP PG Care Time/CCT Total # of Minutes Spent Total Time Spent with Patient: Total time spent is greater than 50% in coordination of care (as documented) at patient's floor/unit and/or counseling patient: Coding Level of Care Code 89043 SUB INP/OBS CARE MIN Diagnoses Sepsis A41.9 Urinary tract infection N39.0 ADHD F90.9 Bipolar disorder F31.9 DM2 (diabetes mellitus, type 2) E11.9
[2025-05-05] MEDS ORDERED: LANTUS PER UNIT CHARGE SC SCH (17:00)
== END 2025-05-05 15:21 | disposition home health service (06) | DRG 854 ==
LOC: ASU 05:59 → SUATTDRO 09:19 → PACUINP 09:19 → 3E 11:40
DX: F90.9 Attention-deficit hyperactivity disorder, unspecified type; T41.0X5A Adverse effect of inhaled anesthetics, initial encounter; Y74.2 Prosthetic and other implants, materials and accessory general hospital and personal-use devices associated with adverse incidents; A41.9 Sepsis, unspecified organism; Z98.890 Other specified postprocedural states; I95.89 Other hypotension; F31.9 Bipolar disorder, unspecified; B95.7 Other staphylococcus as the cause of diseases classified elsewhere; Y92.234 Operating room of hospital as the place of occurrence of the external cause; M46.1 Sacroiliitis, not elsewhere classified; Z79.85 Long-term (current) use of injectable non-insulin antidiabetic drugs; T83.84XA Pain due to genitourinary prosthetic devices, implants and grafts, initial encounter; N13.6 Pyonephrosis; E11.9 Type 2 diabetes mellitus without complications